=== PATIENT | male | born 1955 | race Caucasian/White ===

== ENCOUNTER → 2019-05-25 11:35 | Outpatient (CLI) | payer OTHER, MEDICARE, SELFPAY ==
--- NOTE | ~2019-05-25 | CT_ITS ---
EXAMINATION: CTA chest PE abdomen pel DATE: 05/25/2019 12:27 INDICATION: Chest and abdominal pain, patient underwent incisional hernia repair with mesh and right- sided transversus abdominous myofascial flap advancement on 04/23/2019 TECHNIQUE: Computed tomography angiography (CTA) of the chest was performed with 100 mL Omnipaque-350 intravenous contrast timed to evaluate the pulmonary arteries. Subsequent postcontrast images of the abdomen and pelvis are obtained. Coronal maximum intensity projection 3D-reconstructions were create d by the technologist. The dose-length product (DLP) was 1388.90 mGy-cm. Automated exposure control a nd iterative reconstruction technique were employed. COMPARISON: 01/15/2019, 06/17/2009. FINDINGS: CTA CHEST: The pulmonary arteries are well-opacified. No pulmonary embolism is identified. There is m ild dependent atelectasis. No focal airspace opacities are identified. Again seen are scattered small pulmonary nodules, consistent with old granulomatous disease. There is no pleural effusion or pneumo thorax. No pathologically enlarged thoracic lymph nodes are identified. The heart size is normal. The re are partially imaged changes of anterior fusion procedure in the lower cervical spine. There is mo derate thoracic spondylosis. There is a small sliding hiatal hernia. ABDOMEN/PELVIS CT: There is a 14.3 x 3.2 x 12.9 cm lenticular fluid collection of the anterior abdomi nal wall. The liver, pancreas, gallbladder, and adrenal glands are normal. A chronic area of low atte nuation in the lower pole of the spleen likely represents a cyst or lymphangioma. Peripelvic cysts ar e noted in the kidneys. Nonobstructing stones of the left kidney measure up to 4 mm. No pathologicall y enlarged abdominal or pelvic lymph nodes are identified. There is no free intraperitoneal gas or ev idence of bowel obstruction. There is severe lumbar spondylosis at L5-S1. IMPRESSION: 1. No pulmonary embolism or acute cardiopulmonary abnormality. 2. Lenticular fluid collection of the anterior abdominal wall, measuring up to 14.3 cm, which could r eflect postoperative hematoma and/or seroma. Reviewed, dictated and finalized at location A. N PROJECTILE IMPRESSION: 1. No pulmonary embolism or acute cardiopulmonary abnormality. 2. Lenticular fluid collection of the anterior abdominal wall, measuring up to 14.3 cm, which could reflect postoperative hematoma and/or seroma.
[2019-05-25 12:06] LABS: Blood Urea Nitrogen 12 mg/dL (8-26); Estimated Glomerular Filt Rate > 60
== END ==
PROVIDERS: PCP Family Medicine; Visit Provider Surgery
DX: R07.9 Chest pain, unspecified (principal); K43.2 Incisional hernia without obstruction or gangrene
CPT/HCPCS: 71275; 74177; Q9967

== ENCOUNTER 2019-11-11 14:07 | Outpatient (CLI) | payer MEDICARE, SELFPAY ==
[2019-11-11 14:38] LABS: Basophils Absolute Auto 0.1 K/mm3 (0.0-0.1); Eosinophils Absolute Auto 0.2 K/mm3 (0-0.3); Eosinophils Percent Auto 3.5 % (0-4.4); Hematocrit 42.5 % (42.0-52.0); Hemoglobin 14.1 g/dL (14.0-18.0); Immature Granulocyte Absolute 0.02 K/mm3 (0.00-0.031); Immature Granulocyte Percent A 0.3 % (0-0.5); Lymphocytes Absolute Auto 1.35 K/mm3 (0.9-3.2); Lymphocytes Percent Auto 21.5 % (18.3-44.2); Mean Corpuscular HGB Conc 33.2 g/dl (32-36); Mean Corpuscular Hemoglobin 30.6 pg (26-34); Mean Corpuscular Volume 92.2 fl (80-100); Mean Platelet Volume 9.3 fl (7.4-10.4); Monocytes Absolute Auto 0.5 K/mm3 (0.1-0.6); Monocytes Percent Auto 8.4 % (2.6-8.5); Neutrophils Absolute Auto 4.1 K/mm3 (1.3-6.7); Neutrophils Percent Auto 65.3 % (45.5-73.1); Platelet Count Result 280 k/mm3 (150-375); Red Blood Count 4.61 M/mm3 (4.6-6.20); Red Cell Distribution Width 16.3 % (11.5-14.5); White Blood Count 6.3 K/mm3 (4.5-10.0)
[2019-11-11 16:44] LABS: Iron 85 ug/dL (49-181)
[2019-11-11 16:50] LABS: Alanine Aminotransferase 28 U/L (4-50); Albumin Level 4.3 g/dL (3.5-5.1); Alkaline Phosphatase 53 U/L (38-126); Anion Gap 12.2 mmol/L (7-16); Aspartate Amino Transferase 27 U/L (17-59); Bilirubin,Total 0.3 mg/dL (0.2-1.3); Blood Urea Nitrogen 22 mg/dL (9-20); Calcium 9.4 mg/dL (8.4-10.2); Carbon Dioxide 25 mmol/L (22-30); Chloride 106 mmol/L (98-107); Estimated Glomerular Filt Rate > 60; Glucose 110 mg/dL (75-110); Potassium 4.2 mmol/L (3.4-5.0); Sodium 139 mmol/L (137-145)
[2019-11-11 16:58] LABS: Percent Iron Saturation 24 % (20-50)
[2019-11-11 18:10] LABS: Folic Acid > 20.0 ng/mL (2.76->20)
== END 2019-11-11 14:08 | disposition home or self-care (01) ==
PROVIDERS: PCP Family Medicine; Visit Provider Internal Medicine Hematology & Oncology
DX: D64.9 Anemia, unspecified (principal)
CPT/HCPCS: 36415; 80053; 82607; 82728; 82746; 83540; 83550; 84238; 84443; 85025

== ENCOUNTER 2020-04-16 01:57 | Outpatient (CLI) | payer MEDICARE, SELFPAY ==
[2020-04-16 20:08] LABS: SARS-CoV-2 RNA PCR Negative
== END 2020-04-16 01:58 | disposition home or self-care (01) ==
LOC: ANHCOVIDDT 01:57
PROVIDERS: PCP Family Medicine; Visit Provider Internal Medicine Gastroenterology
DX: Z01.818 Encounter for other preprocedural examination (principal); Z20.828 Contact with and (suspected) exposure to other viral communicable diseases
CPT/HCPCS: C9803; U0003

== ENCOUNTER 2020-04-19 01:56 | Day surgery (SDC) | payer MEDICARE, SELFPAY ==
[2020-04-04 14:47] VITALS: BMI 27.8
[2020-04-19 11:25] VITALS: BP 142/90; PULSE 83; RESP 18; TEMP 36.3; O2SAT 100; BMI 28.4
[2020-04-19] MEDS: LACTATED RINGERS 1,000 ML 150 ML IV CONT (11:49)
--- NOTE | 2020-04-19 11:54 | WPDANESEPPF ---
Anes - Initial Pre Proc Eval Procedure: Operation Date: 04/19/20 12:45 Proposed Procedures p Screening Colonoscopy - Ganga Serra MD Date/Time: 04/19/20 11:54 Surgeon: Ganga Serra MD Pre Op Diagnosis: Neoplasm Screening Patient Data Age: 64 Gender: M Height: 5 ft 8 in Weight: 84.8 kg Last Vital Signs Temp 97.4 F L 04/19/20 11:25 Pulse 83 04/19/20 11:25 Resp 18 04/19/20 11:25 BP 142/90 H 04/19/20 11:25 Pulse Ox 100 04/19/20 11:25 Allergies Allergy/AdvReac Type Severity Reaction Status Date / Time No Known Allergies Allergy Verified 04/19/20 11:22 Home Medications Medication Instructions Recorded Confirmed Type ascorbic acid (vitamin C) 1,000 mg 1 gm PO DAILY 03/09/19 04/04/20 History tablet magnesium oxide 500 mg capsule 500 mg PO DAILY 03/09/19 04/04/20 History vit B complex 100 combo no.2 100 1 tablet PO DAILY 03/09/19 04/04/20 History mg tablet,extended release green tea leaf extract [Green Tea] 500 mg PO DAILY 04/09/19 04/04/20 History psyllium husk [Fiber (psyllium 0.4 g PO DAILY 04/09/19 04/04/20 History husk)] creatine monohydrate 1.5 gram/15 189 gm PO DAILY ml 09/04/19 04/04/20 History mL oral liquid atorvastatin 20 mg tablet 20 mg PO DAILY #90 tablet 12/30/19 04/04/20 Rx lansoprazole 30 mg capsule,delayed 30 mg PO BID #180 cap 02/10/20 04/04/20 Rx release levothyroxine 137 mcg tablet 137 mcg PO DAILY #90 tablet 02/10/20 04/04/20 Rx tamsulosin 0.4 mg capsule 0.4 mg PO DAILY #90 cap 02/10/20 04/04/20 Rx hydrocodone 7.5 mg-acetaminophen 1 tablet PO Q6H PRN #120 tablet 03/18/20 04/04/20 Rx 325 mg tablet peg 3350-electrolytes 236 240 ml PO Q10M #4000 ml 03/21/20 Rx gram-22.74 gram-6.74 gram-5.86 gram solution pramipexole 0.125 mg tablet 0.375 mg PO TID #810 tablet 03/25/20 04/04/20 Rx calcium carbonate [Calcium 600] 600 mg PO DAILY 04/04/20 04/04/20 History cholecalciferol (vitamin D3) 50 mcg PO DAILY 04/04/20 04/04/20 History [Vitamin D3] ginkgo biloba-Panax ginseng rt 1 cap PO DAILY 04/04/20 04/04/20 History [Ginkoba M-E] omega-3 fatty acids [Fish Oil] 600 mg PO DAILY 04/04/20 04/04/20 History prasterone (dhea) [DHEA] 50 mg PO DAILY 04/04/20 04/04/20 History diltiazem HCl [Cardizem CD] 240 mg PO DAILY 04/19/20 04/04/20 History Patient hx anesthesia problems: none Family hx anesthesia problems: none PMFSH Past Medical History Medical History 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 GERD (gastroesophageal reflux disease) High cholesterol History of blood transfusion HTN (hypertension) Hypogonadism in male Hypothyroidism determined by thyroid function test Incisional hernia without obstruction or gangrene (~07/2018) Lipoma of extremity removed Lipomatosis Osteoarthritis of knee Restless leg syndrome Surgical History Surgical History H/O repair of rotator cuff left H/O toe surgery History of cataract surgery History of hernia surgery repair incisional hernia with mesh, right side transverses abdominis myofascial flap advancement 5cm History of tonsillectomy Family History Family History Father Family history of lung cancer Sibling Family history of lung cancer Social History Social History Smoking packs per day: 4 Smoking cigarettes per day: 80.0 Years smoked: 30 Smoking pack-years: 120.00 Smoking status: Former smoker Tobacco type: cigarettes Second hand tobacco smoke exposure: No Smoking end date: 04/29/94 Alcohol intake: former Substance use: never Substance use type: does not use Living arrangements: with family Gender identity (if verbalized by the patient): M
--- NOTE | 2020-04-19 12:32 | PM.HPGS ---
History of Present Illness History of Present Illness Consent: Risks, benefits, and alternatives have been discussed and questions answered. Patient agrees to proceed with procedure. Chief complaint: Neoplasm Screening Narrative: Wilfrido Rodrigues is a 64 year old male with colon polyps about 5 years ago. Review of Systems Constitutional: Constitutional: Denies headache(s) and Denies weakness Eyes: Eyes: Denies blurry vision ENT: Reports Normal hearing present, Denies headache(s) and Denies neck pain Cardiovascular: Cardiovascular: Denies chest pain and Denies dyspnea Respiratory: Respiratory: Denies dyspnea Gastrointestinal: Gastrointestinal: Reports no additional gastrointestinal complaints Genitourinary: Genitourinary: Denies dysuria Musculoskeletal: Musculoskeletal: Denies neck pain Integumentary/Breasts: Skin/Breast: Denies dry skin Neurologic: Reports Normal hearing present, Denies headache(s) and Denies weakness Psychiatric: Psychiatric: Denies anxiety Endocrine: Endocrine: Denies change in body appearance Hematologic/Lymphatic: Hematologic/Lymphatic: Denies easy bleeding Allergic/Immunologic: Allergic/Immunologic: Denies urticaria PMFSH Past Medical History Medical History 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 GERD (gastroesophageal reflux disease) High cholesterol History of blood transfusion HTN (hypertension) Hypogonadism in male Hypothyroidism determined by thyroid function test Incisional hernia without obstruction or gangrene (~07/2018) Lipoma of extremity removed Lipomatosis Osteoarthritis of knee Restless leg syndrome Surgical History Surgical History H/O repair of rotator cuff left H/O toe surgery History of cataract surgery History of hernia surgery repair incisional hernia with mesh, right side transverses abdominis myofascial flap advancement 5cm History of tonsillectomy Family History Family History Father Family history of lung cancer Sibling Family history of lung cancer Social History Social History Smoking packs per day: 4 Smoking cigarettes per day: 80.0 Years smoked: 30 Smoking pack-years: 120.00 Smoking status: Former smoker Tobacco type: cigarettes Second hand tobacco smoke exposure: No Smoking end date: 04/29/94 Alcohol intake: former Substance use: never Substance use type: does not use Living arrangements: with family Gender identity (if verbalized by the patient): Male Spiritual care concerns: No Agree to blood products: Yes Meds Home Medications and Allergies Home Medications Medication Instructions Recorded Confirmed Type ascorbic acid (vitamin C) 1,000 mg 1 gm PO DAILY 03/09/19 04/04/20 History tablet magnesium oxide 500 mg capsule 500 mg PO DAILY 03/09/19 04/04/20 History vit B complex 100 combo no.2 100 1 tablet PO DAILY 03/09/19 04/04/20 History mg tablet,extended release green tea leaf extract [Green Tea] 500 mg PO DAILY 04/09/19 04/04/20 History psyllium husk [Fiber (psyllium 0.4 g PO DAILY 04/09/19 04/04/20 History husk)] creatine monohydrate 1.5 gram/15 189 gm PO DAILY ml 09/04/19 04/04/20 History mL oral liquid atorvastatin 20 mg tablet 20 mg PO DAILY #90 tablet 12/30/19 04/04/20 Rx lansoprazole 30 mg capsule,delayed 30 mg PO BID #180 cap 02/10/20 04/04/20 Rx release levothyroxine 137 mcg tablet 137 mcg PO DAILY #90 tablet 02/10/20 04/04/20 Rx tamsulosin 0.4 mg capsule 0.4 mg PO DAILY #90 cap 02/10/20 04/04/20 Rx hydrocodone 7.5 mg-acetaminophen 1 tablet PO Q6H PRN #120 tablet 03/18/20 04/04/20 Rx 325 mg tablet peg 3350-electrolytes 236 240 ml PO Q10M #4000 ml 03/21/20 Rx gram-
[2020-04-19 12:55] VITALS: BP 122/70; PULSE 80; RESP 20; O2SAT 94
[2020-04-19 13:05] VITALS: BP 135/75; PULSE 78; RESP 22; O2SAT 98
[2020-04-19 13:15] VITALS: BP 122/80; PULSE 76; RESP 20; O2SAT 98
--- NOTE | 2020-04-19 13:29 | SUR.PHASEII ---
INTO RECOVERY 1255, SPOUSE AT BEDSIDE. PT HAVING MUSCLE SPASMS AND TWITCHES WHICH IS PT'S NORMAL. PT HAS NOT HAD HIS MIRAPEX TODAY. PT SLOW TO AROUSE FROM ANESTHESIA. SPOUSE AT BEDSIDE TO AROUSE PT GENTLY DUE TO PTSD. UPON WAKING, SPOUSE GAVE PT MIRAPEX AND VICODIN. PT MORE AWAKE AND ABLE TO CONTROL SPASMS SOME AFTER MEDS GIVEN AND ABLE TO STAND UP.
== END 2020-04-19 13:45 | disposition home or self-care (01) ==
PROVIDERS: PCP Physician Assistant; Visit Provider Internal Medicine Gastroenterology
PROC: 0DJD8ZZ Inspection of Lower Intestinal Tract, Via Natural or Artificial Opening Endoscopic (ICD-10-PCS; CPT 45378; principal; 2020-04-19 12:45)
DX: Z12.11 Encounter for screening for malignant neoplasm of colon (principal); D12.3 Benign neoplasm of transverse colon; K63.5 Polyp of colon; K57.30 Diverticulosis of large intestine without perforation or abscess without bleeding; K64.8 Other hemorrhoids; N40.1 Benign prostatic hyperplasia with lower urinary tract symptoms; F43.10 Post-traumatic stress disorder, unspecified; K21.9 Gastro-esophageal reflux disease without esophagitis; E78.00 Pure hypercholesterolemia, unspecified; I10 Essential (primary) hypertension; E88.2 Lipomatosis, not elsewhere classified; M17.10 Unilateral primary osteoarthritis, unspecified knee; G25.81 Restless legs syndrome; Z87.891 Personal history of nicotine dependence
CPT/HCPCS: 45385; 88305; C9803; J2704; J7120; U0003

== ENCOUNTER 2020-11-25 10:28 | Outpatient (CLI) | payer MEDICARE, SELFPAY ==
--- NOTE | ~2020-11-25 | CT_ITS ---
EXAMINATION: CT lung screening DATE: 11/25/2020 10:51 INDICATION: Personal history of tobacco dependence, prior smoker with 120 pack year history TECHNIQUE: Computed tomography (CT) of the chest was performed without intravenous contrast. The dose -length product (DLP) was 177.53 mGy-cm. Automated exposure control and iterative reconstruction tech [employer] were employed. COMPARISON: 05/25/2019 FINDINGS: There is mild emphysema. There are stable lung nodules measuring up to 3 mm in the right mi ddle lobe. No new nodules are identified. The lungs are free of acute opacities. There is mild depend ent atelectasis. No pleural effusion or pneumothorax is identified. No pathologically enlarged thorac ic lymph nodes are identified. The heart size is normal. There is moderate thoracic spondylosis. Ther e are partially imaged changes of anterior fusion of the lower cervical spine. IMPRESSION: 1. Lung-RADS category 2: Benign appearance or behavior. Reviewed, dictated and finalized at location B.
== END 2020-11-25 10:29 | disposition home or self-care (01) ==
PROVIDERS: PCP Family Medicine; Visit Provider Family Medicine
DX: Z12.2 Encounter for screening for malignant neoplasm of respiratory organs (principal); Z87.891 Personal history of nicotine dependence
CPT/HCPCS: 71271

== ENCOUNTER 2021-03-26 10:06 | Inpatient (IN) | payer MEDICARE, SELFPAY ==
[2021-03-26] VITALS (8 sets, daily range): BP systolic 140–160; BP diastolic 73–89; PULSE 62–116; RESP 17–44; TEMP 37.2–38.1; O2SAT 94–100; BMI 27.4
--- NOTE | ~2021-03-26 | XR_ITS ---
EXAMINATION: XR chest 1V portable DATE: 04/17/2021 08:55 INDICATION: Respiratory failure. COVID-19 pneumonia. TECHNIQUE: A single frontal view of the chest was obtained. COMPARISON: Chest single view 04/15/2021 FINDINGS: The lateral costophrenic angles are excluded. There are interstitial and airspace opacities throughout the lungs bilaterally. No pleural effusion or pneumothorax. The heart size is normal. The nasogastric tube tip is beyond the inferior margin of the radiograph, but at least to the stomach. T he endotracheal tube tip is 7.2 cm above the ivan. There are changes of anterior fusion procedure i n cervical spine. A right upper extremity peripherally inserted central venous catheter (PICC) is see n with tip in the superior vena cava. There is gas in right neck and right chest wall. IMPRESSION: 1. New gas in right neck and right chest wall. 2. Stable diffuse lung disease, consistent with COVID-19 pneumonia versus acute respiratory distress syndrome (ARDS). Reviewed, dictated and finalized at location A. CTIVE SERGEANT
--- NOTE | ~2021-03-26 | CT_ITS ---
EXAMINATION: CTA chest PE protocol EXAM DATE: 03/26/2021 15:43 INDICATION: Hypoxia, tachycardia, COVID patient under investigation. TECHNIQUE: Spiral CTA of the chest (pulmonary arteries) was performed with 100 cc Omnipaque 350 intr avenous contrast injection. Images were acquired during the pulmonary arterial phase. Coronal maxi mum intensity projection 3D-reconstructions were created by the technologist on dedicated workstation . Axial, coronal and sagittal reformatted images were reviewed. The dose-length product (DLP) for t his examination was 494.15 mGy-cm. The exposure was tailored according to patient size (auto mA exp osure control), and iterative reconstruction (ASIR) was used as additional dose reduction technique. Comparison is made to prior examination from 11/25/2020. FINDINGS: Pulmonary arteries are well opacified and without intraluminal filling defects. No thora cic aortic dissection. Development of moderate amount of left lung, mild right lung peripheral and d ependent predominant groundglass airspace disease, appearance is consistent with COVID pneumonia acut e stage. There are no pleural or pericardial effusions. Tracheobronchial tree is patent. There i s no mediastinal, hilar or axillary lymphadenopathy. There is no pneumothorax. Heart normal in si ze. There is mild coronary arterial calcification, arterial sclerosis. Probable Niesen fundoplicat ion. There is thoracic spondylosis without osteoblastic or osteolytic lesions identified. IMPRESSION: 1. Moderate left, mild right pneumonia, probably COVID 19. 2. No pulmonary emboli suspected. Reviewed, dictated and finalized at location A. DATION TECHNICIAN
--- NOTE | ~2021-03-26 | XR_ITS ---
EXAMINATION: XR chest 1V portable DATE: 04/15/2021 07:50 INDICATION: Acute respiratory failure. COVID-19 pneumonia. TECHNIQUE: A single frontal view of the chest was obtained. COMPARISON: Chest single view 04/14/2021 FINDINGS: The patient is rotated to his right. There are interstitial and airspace opacities in all l josephine zones bilaterally. No pleural effusion or pneumothorax. The heart size is normal. The endotrachea l tube tip is 6.0 cm above the ivan. The nasogastric tube tip is in the stomach. A right upper extr emity peripherally inserted central venous catheter (PICC) is seen with tip at the superior cavoatria l junction. There are changes of anterior fusion procedure in cervical spine. IMPRESSION: 1. Stable diffuse lung disease, consistent with COVID-19 pneumonia versus acute respiratory distress syndrome (ARDS). Reviewed, dictated and finalized at location A. LE CORNER CUTTER
--- NOTE | ~2021-03-26 | XR_ITS ---
EXAMINATION: XR chest 1V portable DATE: 04/18/2021 09:44 INDICATION: Respiratory failure. COVID-19 pneumonia. TECHNIQUE: A single frontal view of the chest was obtained. COMPARISON: Chest single view 04/17/2021 FINDINGS: There are airspace and interstitial opacities involving all lung zones, worst in right lowe r lung zone and left mid and lower lung zones. No pleural effusion. There is a possible small right p neumothorax. There is gas in right lateral chest wall. The heart size is normal. The endotracheal tub e tip is 5.3 cm above the ivan. The nasogastric tube tip is in the stomach. There are changes of an terior fusion procedure in cervical spine. A right upper extremity peripherally inserted central veno us catheter (PICC) is seen with tip in the superior vena cava. IMPRESSION: 1. Possible small right pneumothorax. Gas again seen in right chest wall. 2. Diffuse lung disease, likely stable given differences in technique, consistent with COVID-19 pneum onia versus acute respiratory distress syndrome (ARDS). Reviewed, dictated and finalized at location A. WARE MANAGER IMPRESSION: 1. Possible small right pneumothorax. Gas again seen in right chest wall. 2. Diffuse lung disease, likely stable given differences in technique, consiste nt with COVID-19 pneumonia versus acute respiratory distress syndrome (ARDS).
--- NOTE | ~2021-03-26 | XR_ITS ---
EXAMINATION: XR abdomen obstructive series EXAM DATE: 04/15/2021 14:30 INDICATION: Rule out ileus/obstruction. TECHNIQUE: Frontal upright projection of the upper abdomen, frontal projection of the lower abdomen f or interpretation. Comparison is made to prior examination from 04/10/2021. FINDINGS: Feeding tube tip and side-port project over gastric bubble. Tips of right IJ line and endo tracheal tubes. No evidence of free intraperitoneal gas. Expected amount of colonic stool and gas wi thout small bowel dilation (resolution of previously seen air-filled small bowel). No evidence of mohamud e intraperitoneal gas. Diffuse pneumonia. IMPRESSION: 1. No evidence of ileus, obstruction or free air. 2. Feeding tube in position. Reviewed, dictated and finalized at location A. CONSULTANT
--- NOTE | ~2021-03-26 | XR_ITS ---
EXAMINATION: XR chest 1V portable EXAM DATE: 04/11/2021 06:32 INDICATION: Acute respiratory failure, COVID pneumonia TECHNIQUE: Portable AP frontal chest x-ray was obtained. Comparison is made to prior examination from 04/10/2021. FINDINGS: Endotracheal tube tip is 5 centimeters above the ivan. Feeding tube is in position. Ther e is a right-sided PICC line also in position. Diffuse bilateral airspace disease with relative sparing of the right upper lobe, consistent with COV ID pneumonia. Possible small amount of pneumomediastinum. There are no sizable pleural effusions. There is no pneumothorax suspected. Cardiomediastinal silhouette is normal. The bones and soft tis sues are unremarkable. Cervical fusion hardware. Airspace disease appears not significantly changed. Possible development of pneumomediastinum. IMPRESSION: 1. Line and tube(s) in position. 2. Diffuse COVID pneumonia unchanged. 3. Possible development of pneumomediastinum. Reviewed, dictated and finalized at location A. SION DIRECTOR
--- NOTE | ~2021-03-26 | XR_ITS ---
EXAMINATION: XR chest 1V portable DATE: 04/12/2021 08:38 INDICATION: Acute respiratory failure. COVID pneumonia. TECHNIQUE: frontal view of the chest was obtained. COMPARISON: Chest radiograph dated 04/11/2021 FINDINGS: Endotracheal tube tip 5.4 cm above the ivan. Nasogastric tube tip in the body of the stomach with p roximal side-port near the level of the gastroesophageal junction. Right upper extremity peripherally inserted central venous catheter (PICC) tip at the superior vena cava. No significant change in diffuse bilateral airspace opacities greatest in the left mid to lower and r ight lower lung zones. No pleural effusion or pneumothorax. Previously seen small amount of pneumomed iastinum is not appreciated on the current study although there does appear to be some residual soft tissue gas at the left supraclavicular region. Heart size is normal. Visualized bones and soft tissue s are unremarkable. IMPRESSION: 1. Lines and tubes in expected position. Would consider advancement of the nasogastric tube by 3-[address] proximal sideport below the level of the gastroesophageal junction. 2. No significant change in diffuse bilateral lung disease consistent with COVID pneumonia. 3. Small amount of soft tissue gas at the left base of the neck likely related to previously noted pn eumomediastinum which is not clearly appreciated in the current study. Reviewed, dictated and finalized at location A. SETTER IMPRESSION: 1. Lines and tubes in expected position. Would consider advancement of the naso gastric tube by 3-[address] proximal sideport below the level of the gastro esophageal junction. 2. No significant change in diffuse bilateral lung disease consistent with COVI D pneumonia. 3. Small amount of soft tissue gas at the left base of the neck likely related to previously noted pneumomediastinum which is not clearly appreciated in the syeda study.
--- NOTE | ~2021-03-26 | XR_ITS ---
XR chest 1V portable DATE: 04/20/2021 09:31 INDICATION: Respiratory failure, Covid pneumonia TECHNIQUE: Portable AP chest on 04/20/2021 0914 hours COMPARISON: 04/19/2019 portable AP chest at 1006 hours FINDINGS: There are persistent extensive patchy consolidating bilateral pulmonary infiltrates, with l ittle interval change since the day before. No pleural effusion. No pneumothorax is evident; there is mild but diminished right chest wall subcutaneous emphysema. ET tube tip in satisfactory position 5 cm above ivan. NG tube in proximal stomach. Right upper stomach the catheter tip is in the caudal aspect of the superior vena cava. Normal heart size. Aortic arch calcification. No pleural effusion. No pulmonary vascular congestion. Diffuse osteopenia. Degenerative spurring of the thoracic spine. IMPRESSION: Diminished right chest wall subcutaneous emphysema; no apparent pneumothorax Persistent extensive patchy bilateral consolidating pulmonary infiltrates Reviewed, dictated and finalized at location A. NING COORDINATOR IMPRESSION: Diminished right chest wall subcutaneous emphysema; no apparent pne umothorax Persistent extensive patchy bilateral consolidating pulmonary infiltrates
--- NOTE | ~2021-03-26 | XR_ITS ---
EXAMINATION: XR chest 1V portable DATE: 04/14/2021 07:55 INDICATION: Acute respiratory failure. COVID-19 pneumonia. TECHNIQUE: A single frontal view of the chest was obtained. COMPARISON: Chest single view 04/13/2021 FINDINGS: There are airspace and interstitial opacities throughout the lungs bilaterally, left worse than right. No pleural effusion or pneumothorax. The heart size is normal. The endotracheal tube tip is 5.3 cm above the ivan. There are changes of anterior fusion procedure in cervical spine. A right upper extremity peripherally inserted central venous catheter (PICC) is seen with tip at the superio r cavoatrial junction. The nasogastric tube tip is in the stomach. IMPRESSION: 1. Stable diffuse lung disease, consistent with COVID-19 pneumonia versus acute respiratory distress syndrome (ARDS). Reviewed, dictated and finalized at location A. ERCIAL LOAN SPECIALIST
--- NOTE | ~2021-03-26 | XR_ITS ---
EXAMINATION: XR chest 1V portable DATE: 04/19/2021 10:15 INDICATION: Respiratory failure. COVID-19 pneumonia. TECHNIQUE: A single frontal view of the chest was obtained. COMPARISON: Chest single view 04/18/2021 FINDINGS: There are airspace and interstitial opacities in all lung zones bilaterally. No pleural eff usion or pneumothorax. The heart size is normal. The endotracheal tube tip is 5.0 cm above the ivan . The nasogastric tube tip is in the stomach. There are changes of anterior fusion procedure in cervi dara spine. A right upper extremity peripherally inserted central venous catheter (PICC) is seen with tip again seen is gas in right chest wall and right neck. IMPRESSION: 1. Stable diffuse lung disease, consistent with COVID-19 pneumonia versus acute respiratory distress syndrome (ARDS). 2. Soft tissue gas again seen in right chest wall and right neck. Reviewed, dictated and finalized at location A. CE ADMINISTRATOR
--- NOTE | ~2021-03-26 | XR_ITS ---
XR chest 1V portable 04/04/2021 09:15 Indication: Dyspnea. Covid precaution. Procedure: AP portable chest Comparison: Comparison to multiple prior studies sequentially, with oldest reviewed study dated 04/24. Findings: Heart size upper normal. There is persistent bilateral airspace disease, left greater than right. No pleural effusion or pneumothorax. No acute osseous abnormality. Impression: 1: Stable bilateral airspace disease, consistent with pneumonia. Reviewed, dictated and finalized at location A. RD TESTER Impression: 1: Stable bilateral airspace disease, consistent with pneumonia.
--- NOTE | ~2021-03-26 | XR_ITS ---
EXAMINATION: XR chest ET placement, XR abdomen NG/feed tube insert DATE: 04/10/2021 11:39 INDICATION: Endotracheal tube placement. Orogastric tube placement TECHNIQUE: 1. Portable AP supine view of the chest was obtained. 2. Portable AP supine view of the abdomen was obtained. COMPARISON: Chest radiograph dated 04/10/2021 at 5:29 AM FINDINGS: Chest: Interval placement of an endotracheal tube with distal tip 4.7 cm above the ivan. Persistent airspa ce opacities throughout the left lung relatively sparing the apex and in the right mid and lower lung zones with a few air bronchograms consistent with pneumonia. No pleural effusion or pneumothorax. Th e cardiomediastinal silhouette is normal. Surgical clips at the left side of the neck. Incompletely v isualized plate and screw fixation for mid to lower cervical anterior spinal fusion. Abdomen: Nasogastric tube tip in proximal side port in the body of the stomach. Multiple gas-filled but not fr ankly dilated loops of large and small bowel throughout the visualized abdomen. IMPRESSION: 1. Endotracheal tube and nasogastric tube in expected positions. Could consider advancement of the en dotracheal tube by 2 cm. 2. Opacities in the bilateral mid and lower lung zones consistent with pneumonia. 3. Nonspecific bowel gas pattern with no dilated loops of bowel to suggest obstruction. Reviewed, dictated and finalized at location H. THERAPIST IMPRESSION: 1. Endotracheal tube and nasogastric tube in expected positions. Could consider advancement of the endotracheal tube by 2 cm. 2. Opacities in the bilateral mid and lower lung zones consistent with pneumoni a. 3. Nonspecific bowel gas pattern with no dilated loops of bowel to suggest obst ruction.
--- NOTE | ~2021-03-26 | XR_ITS ---
EXAMINATION: XR chest 1V portable DATE: 04/02/2021 11:02 INDICATION: Dyspnea. COVID-19 positive 03/26/2021. TECHNIQUE: A single frontal view of the chest was obtained. COMPARISON: Chest single view 03/29/2021, chest CT 03/26/2021 FINDINGS: There are airspace opacities in right lower lung zone and left mid and lower lung zones. No pleural effusion or pneumothorax. The heart size is normal. There are changes of anterior fusion pro cedure in cervical spine. IMPRESSION: 1. Stable airspace opacities in right lower lung zone and left mid and lower lung zones, consistent w ith COVID-19 pneumonia. Reviewed, dictated and finalized at location A. CING MILL OPERATOR IMPRESSION: 1. Stable airspace opacities in right lower lung zone and left mid and lower miguelina ng zones, consistent with COVID-19 pneumonia.
--- NOTE | ~2021-03-26 | CT_ITS ---
EXAMINATION: CT brain wo con DATE: 03/29/2021 09:00 INDICATION: Confusion. Altered mental status. TECHNIQUE: Computed tomography (CT) of the head was performed without intravenous contrast. The mA wa s adjusted according to patient size. Iterative reconstruction technique was employed. The dose-lengt h product was 605.33 mGy-cm. COMPARISON: None FINDINGS: There is no intracranial hemorrhage, acute infarction, or abnormal intracranial mass lesion . There are scattered areas of low attenuation in the cerebral white matter, which is within normal l imits for the patient's age. The ventricles are normal in size. There is mucosal thickening in the pa ranasal sinuses. The mastoid air cells are normal. There are likely changes of ocular lens replacemen t surgeries. IMPRESSION: 1. Normal aging brain. Reviewed, dictated and finalized at location A. CAR REPAIR CARMAN IMPRESSION: 1. Normal aging brain.
--- NOTE | ~2021-03-26 | XR_ITS ---
XR chest 1V portable DATE: 04/08/2021 06:40 INDICATION: Dyspnea. Covid infection. TECHNIQUE: Portable AP chest on 04/08/2021 at 0615 hours COMPARISON: 04/04/2021 portable AP chest FINDINGS: There is subcutaneous emphysema of the right chest and neck and pneumomediastinum. Small ri ght apical pneumothorax is suspected. No left pneumothorax is evident. Patchy bilateral pulmonary infiltrates involving the right lower and left mid and lower lung zones, s uggesting bilateral pneumonia. No pleural effusion. Diffuse osteopenia. Postoperative change from surgical fusion of the cervical spine. Diffuse osteopenia. IMPRESSION: Mild right apical pneumothorax, pneumomediastinum, prominent right chest and neck subcuta neous emphysema Patchy left mid and bilateral lower lung infiltrates Reviewed, dictated and finalized at location A. LE CONTROL CHENILLER IMPRESSION: Mild right apical pneumothorax, pneumomediastinum, prominent right chest and neck subcutaneous emphysema Patchy left mid and bilateral lower lung infiltrates
--- NOTE | ~2021-03-26 | US_ITS ---
EXAMINATION: US renal BI DATE: 04/14/2021 09:58 INDICATION: Acute kidney injury. TECHNIQUE: Multiple ultrasound grayscale images of the kidneys were obtained. COMPARISON: Ultrasound 04/25/2019, CT 05/25/2019 FINDINGS: The right kidney measures 10.7 x 4.2 x 6.4 cm. The left kidney measures 11.4 x 6.1 x 6.8 cm. The kidn eys demonstrate normal parenchymal echogenicity. There are peripelvic cysts in the kidneys measuring 1.3 cm on the right. There is no hydronephrosis. The bladder is decompressed by a Guido catheter. IMPRESSION: 1. Normal kidney sizes. No hydronephrosis. Reviewed, dictated and finalized at location A. TENDER
--- NOTE | ~2021-03-26 | XR_ITS ---
XR chest 1V portable DATE: 04/09/2021 06:27 INDICATION: Pneumothorax. Covid infection. TECHNIQUE: Portable AP chest on 04/09/2021 at 0600 hours COMPARISON: 04/08/2021 portable AP chest at 0615 hours FINDINGS: There is increased subcutaneous emphysema of the right chest wall and upper abdominal wall and left upper chest and bilateral neck. Pneumomediastinum is again noted. No apparent pneumothorax. Patchy bilateral pulmonary fractures involving the mid and lower lung zones, left greater than right, increased since 04/08/2021. Status post anterior cervical spine surgical fusion. IMPRESSION: Increased subcutaneous emphysema of the chest wall and neck Pneumomediastinum No definite pneumothorax Patchy bilateral pulmonary infiltrates, increased since 04/08/2021 Reviewed, dictated and finalized at location A. ALS REPRESENTATIVE
--- NOTE | ~2021-03-26 | XR_ITS ---
EXAMINATION: XR chest 1V portable DATE: 04/18/2021 14:48 INDICATION: Decreased saturation. TECHNIQUE: A single frontal view of the chest was obtained. COMPARISON: Chest single view at 9:35 AM FINDINGS: There are interstitial airspace opacities in all lung zones bilaterally. No pleural effusio n or pneumothorax. The heart size is normal. There are changes of anterior fusion procedure in cervic al spine. The endotracheal tube tip is 2.4 cm above the ivan. The nasogastric tube tip is in the st omach. A right upper extremity peripherally inserted central venous catheter (PICC) is seen with tip at superior cavoatrial junction. There is gas in right chest wall and right neck. IMPRESSION: 1. Diffuse lung disease with mild worsening, consistent with COVID-19 pneumonia versus acute respirat ory distress syndrome (ARDS). 2. Soft tissue gas again seen in right chest wall and right neck. Reviewed, dictated and finalized at location A. CONDITIONING ENGINEER IMPRESSION: 1. Diffuse lung disease with mild worsening, consistent with COVID-19 pneumonia versus acute respiratory distress syndrome (ARDS). 2. Soft tissue gas again seen in right chest wall and right neck.
--- NOTE | ~2021-03-26 | XR_ITS ---
EXAMINATION: XR chest 1V portable INDICATION: Shortness of breath, TECHNIQUE: Portable AP chest at 1108 hours COMPARISON: 04/24/2019 FINDINGS: There are patchy opacities of the lung bases and left midlung zone. No pleural effusion or pneumothorax is identified. The cardiomediastinal silhouette is normal. The cervical spinal fusion ar e noted. IMPRESSION: 1. Airspace opacities of the lung bases and left midlung zone, likely pneumonia. Reviewed, dictated and finalized at location A. ULATION LIBRARIAN IMPRESSION: 1. Airspace opacities of the lung bases and left midlung zone, likely pneumonia .
--- NOTE | ~2021-03-26 | XR_ITS ---
EXAMINATION: XR chest 1V portable EXAM DATE: 04/10/2021 05:57 INDICATION: COVID pneumonia. TECHNIQUE: Portable AP frontal chest x-ray was obtained. Comparison is made to prior examination from 04/09/2021. FINDINGS: Left greater than right acute ill-defined airspace disease consistent with COVID pneumonia. There is been improvement in the previously seen right axillary gas and pneumomediastinum. The cardi omediastinal silhouette is prominent but magnified on this AP technique. There is no pneumothorax gertrude pected. There are no pleural effusions. Cervical fusion hardware. IMPRESSION: 1. Diffuse, left greater than right COVID pneumonia unchanged. 2. Improving pneumomediastinum, axillary gas. Reviewed, dictated and finalized at location A. MANAGER
--- NOTE | ~2021-03-26 | XR_ITS ---
EXAMINATION: XR chest 1V portable INDICATION: COVID 19 pneumonia TECHNIQUE: Portable AP chest at 0640 hours COMPARISON: 03/26/2021 FINDINGS: A tracheostomy is noted. There are patchy opacities of the lung bases and left midlung zone without significant change. No pleural effusion or pneumothorax is identified. The cardiomediastinal silhouette is normal. Changes of cervical spinal fusion are noted. IMPRESSION: 1. Stable opacities of the lung bases and left midlung zone, likely pneumonia. Reviewed, dictated and finalized at location A. FLOW REGULATOR
--- NOTE | ~2021-03-26 | XR_ITS ---
EXAMINATION: XR chest 1V portable EXAM DATE: 04/13/2021 08:01 INDICATION: Acute respiratory failure, COVID pneumonia. TECHNIQUE: Portable AP frontal chest x-ray was obtained. Comparison is made to prior examination from 04/12/2021. FINDINGS: Endotracheal tube tip is 5-6 centimeters above the ivan. Feeding tube is in position. Th ere is a right-sided PICC line in position. Diffuse left greater than right bilateral airspace disease with relative sparing of the right upper l obe, consistent with COVID pneumonia. There are no sizable pleural effusions. There is no pneumot horax suspected. Cardiomediastinal silhouette is normal. The bones and soft tissues are unremarkab le. Cervical fusion hardware. Airspace disease appears not significantly changed. IMPRESSION: 1. Line and tube(s) in position. 2. Diffuse COVID pneumonia unchanged. Reviewed, dictated and finalized at location A. CCO DRYING MACHINE OPERATOR
--- NOTE | 2021-03-26 10:59 | ECG_ITS ---
Measurements Intervals [place] Rate: 103 P: 33 LA: 149 QRS: 16 QRSD: 89 T: 35 QT: 324 QTc: 426 Interpretive Statements SINUS TACHYCARDIA MINIMAL Q WAVES- ANTEROLAT/HIGH LAT LEADS NONSPECIFIC ST & T-WAVE ABNORMALITY- INF/LAT LEADS BASELINE ARTIFACT- I, II, III, AVR, AVL, AVF BORDERLINE ECG Electronically Signed On 03-26-2021 12:25:18 COAL DELIVERER by Franco Gu D.O.
[2021-03-26 11:48] LABS: Basophils Percent Auto 0.2 % (0.2-1.2); Hematocrit 45.2 % (42.0-52.0); Hemoglobin 15.2 g/dL (14.0-18.0); Immature Granulocyte Absolute 0.02 K/mm3 (0.00-0.031); Immature Granulocyte Percent A 0.4 % (0-0.5); Lymphocytes Absolute Auto 0.56 K/mm3 (0.9-3.2); Lymphocytes Percent Auto 11.7 % (18.3-44.2); Mean Corpuscular HGB Conc 33.6 g/dl (32-36); Mean Corpuscular Hemoglobin 31.5 pg (26-34); Mean Corpuscular Volume 93.8 fl (80-100); Monocytes Absolute Auto 0.3 K/mm3 (0.1-0.6); Monocytes Percent Auto 7.1 % (2.6-8.5); Neutrophils Absolute Auto 3.8 K/mm3 (1.3-6.7); Neutrophils Percent Auto 80.6 % (45.5-73.1); Platelet Count Result 181 k/mm3 (150-375); Red Blood Count 4.82 M/mm3 (4.6-6.20); Red Cell Distribution Width 14.6 % (11.5-14.5); White Blood Count 4.8 K/mm3 (4.5-10.0)
[2021-03-26 11:58] LABS: Alanine Aminotransferase 35 U/L (4-50); Albumin Level 4.5 g/dL (3.5-5.1); Alkaline Phosphatase 199 U/L (38-126); Anion Gap 9 mmol/L (8-16); Aspartate Amino Transferase 41 U/L (17-59); Bilirubin,Total 0.8 mg/dL (0.2-1.3); Blood Urea Nitrogen 33 mg/dL (9-20); Calcium 9.1 mg/dL (8.4-10.2); Carbon Dioxide 24 mmol/L (22-30); Chloride 101 mmol/L (98-107); Estimated Glomerular Filt Rate 51; Glucose 103 mg/dL (65-110); Lactic Acid Reflex 0.8 mmol/L (0.7-2.1); Sodium 134 mmol/L (137-145)
[2021-03-26 12:01] LABS: Add Urine Microscopic? YES; Appearance Urine Clear (Clear); Bilirubin Urine Negative (Negative); Blood Urine Negative (Negative); Color Urine Amber (Yellow); Glucose Urine UA Negative (Negative); Ketones Urine Trace mg/dL (Negative); Leukocyte Esterase Ur Negative LEU/UL (Negative); Mucus Urine Rare /lpf; Nitrate Urine Positive (Negative); Protein Urine 2+ mg/dL (Negative); Specific Grav Ur 1.027 (1.001-1.035)
[2021-03-26 12:13] LABS: Troponin I < 0.012 ng/mL (0.000-0.034)
[2021-03-26] MEDS: LORazepam INJ (*CRX) 2 MG/ML VIAL 0.5 MG IV PUSH ×2 (12:31→15:08)
--- NOTE | 2021-03-26 13:48 | ED.SOB ---
HPI - SOB/Dyspnea General Chief Complaint: Shortness of Breath/Dyspnea Stated Complaint: sob/covid exposure Time Seen by Provider: 03/26/21 12:03 History of Present Illness HPI Narrative: Patient is a 65-year-old male who presents ER with shortness of breath. Worsening over the last week. Reports exposure to Covid by his . He has not yet been tested. He endorses fevers and chills as well as fatigue. He has frequent cough and shortness of breath. Found to be hypoxic upon arrival. Related Data Home Medications Medication Instructions Recorded Confirmed ascorbic acid (vitamin C) 1,000 mg 1 gm PO DAILY 03/09/19 03/26/21 tablet magnesium oxide 500 mg capsule 500 mg PO DAILY 03/09/19 03/26/21 vit B complex 100 combo no.2 100 1 tablet PO DAILY 03/09/19 03/26/21 mg tablet,extended release green tea leaf extract [Green Tea] 500 mg PO DAILY 04/09/19 03/26/21 psyllium husk [Fiber (psyllium 0.4 g PO DAILY 04/09/19 03/26/21 husk)] creatine monohydrate 1.5 gram/15 189 gm PO DAILY ml 09/04/19 03/26/21 mL oral liquid calcium carbonate [Calcium 600] 600 mg PO DAILY 04/04/20 03/26/21 cholecalciferol (vitamin D3) 50 mcg PO DAILY 04/04/20 03/26/21 [Vitamin D3] ginkgo biloba-Panax ginseng rt 1 cap PO DAILY 04/04/20 03/26/21 [Ginkoba M-E] omega-3 fatty acids [Fish Oil] 600 mg PO DAILY 04/04/20 03/26/21 prasterone (dhea) [DHEA] 50 mg PO DAILY 04/04/20 03/26/21 Allergies Allergy/AdvReac Type Severity Reaction Status Date / Time No Known Allergies Allergy Verified 03/26/21 16:40 Review of Systems Review of Systems: All systems reviewed & are unremarkable except as noted in HPI and below Constitutional: Constitutional: Reports chills, Reports fatigue and Reports fever(s) ENT: Reports nasal congestion and Denies sore throat Cardiovascular: Cardiovascular: Denies chest pain, Denies rapid heart rate and Denies radiating jaw, neck or arm pain Respiratory: Respiratory: Reports cough, Reports dyspnea and Denies wheezing Gastrointestinal: Gastrointestinal: Denies abdominal pain, Denies diarrhea, Denies nausea and Denies vomiting Genitourinary: Genitourinary: Denies dysuria and Denies urinary frequency [facility] Past Medical History Medical History (Updated 03/26/21 @ 14:19 by Noris Edge PA-C) Adenomatous colon polyp Bilateral knee pain 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 GERD (gastroesophageal reflux disease) High cholesterol History of blood transfusion HTN (hypertension) Hypogonadism in male Hypothyroidism Hypothyroidism determined by thyroid function test Incisional hernia without obstruction or gangrene (~07/2018) Lipoma of extremity removed Lipomatosis Opioid use, unspecified, uncomplicated Osteoarthritis of knee Restless leg syndrome Surgical History Surgical History H/O repair of rotator cuff left H/O toe surgery H/O uvulectomy History of cataract surgery History of hernia surgery repair incisional hernia with mesh, right side transverses abdominis myofascial flap advancement 5cm History of tonsillectomy S/P cervical spinal fusion Family History Family History Father Family history of lung cancer Sibling Family history of lung cancer Social History Social History (Updated 03/26/21 @ 15:29 by Noris Edge PA-C) Social History: patient does not drink and no longer smokes. He said he quit smoking in 2008. He said before 2008 he would smoked 10 packs of cigarettes a day. I asked him if he was sure it was 10 packs and he was positive. 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 He would like to be a full code. He would like his surrogate decision maker to be his Candy Smoking packs per day: 4 Smoking cigarettes per day: 80.0 Years smoked: 30 Smoking pack-years: 120.[address]
--- NOTE | 2021-03-26 14:11 | PM.IMHP ---
H&P: HPI History of Present Illness Date/Time: 03/26/21 14:11 Chief Complaint: SOB Narrative: Pt is a 65 y/o male with a PMH of HTN, chronic pain, BPH, and hypothyroidism who is fully vaccinated with an mRNA vaccine x 2 who presented emergency room on 03/26 for shortness of breath. Pt states his is currently + for COVID after being around her grandkids. He started having similar symptoms on 03/20. He states he has a continuos dry cough and feels SOB with activity. He has noticed he has been having fevers and decreased appetite. He denies CP, nausea, vomiting, dysuria, constipation, diarrhea, new pain,or leg swelling. He has no hx of blood clots. He feels better with the oxygen but continues to have a cough. 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 GERD (gastroesophageal reflux disease) High cholesterol History of blood transfusion HTN (hypertension) Hypogonadism in male Hypothyroidism Hypothyroidism determined by thyroid function test Incisional hernia without obstruction or gangrene (~07/2018) Lipoma of extremity removed Lipomatosis Opioid use, unspecified, uncomplicated Osteoarthritis of knee Restless leg syndrome Surgical History Surgical History H/O repair of rotator cuff left H/O toe surgery H/O uvulectomy History of cataract surgery History of hernia surgery repair incisional hernia with mesh, right side transverses abdominis myofascial flap advancement 5cm History of tonsillectomy S/P cervical spinal fusion Family History Family History Father Family history of lung cancer Sibling Family history of lung cancer Social History Social History (Updated 03/26/21 @ 15:29 by Noris Edge PA-C) Social History: patient does not drink and no longer smokes. He said he quit smoking in 2008. He said before 2008 he would smoked 10 packs of cigarettes a day. I asked him if he was sure it was 10 packs and he was positive. 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 He would like to be a full code. He would like his surrogate decision maker to be his Candy Smoking packs per day: 4 Smoking cigarettes per day: 80.0 Years smoked: 30 Smoking pack-years: 120.00 Smoking status: Former smoker Tobacco type: cigarettes Second hand tobacco smoke exposure: No Smoking end date: 04/29/94 Alcohol intake: former Substance use: never Substance use type: does not use Gender identity (if verbalized by the patient): Male Spiritual care concerns: No Agree to blood products: Yes Meds Home Medications and Allergies Home Medications Medication Instructions Recorded Confirmed Type ascorbic acid (vitamin C) 1,000 mg 1 gm PO DAILY 03/09/19 02/15/21 History tablet magnesium oxide 500 mg capsule 500 mg PO DAILY 03/09/19 02/15/21 History vit B complex 100 combo no.2 100 1 tablet PO DAILY 03/09/19 02/15/21 History mg tablet,extended release green tea leaf extract [Green Tea] 500 mg PO DAILY 04/09/19 02/15/21 History psyllium husk [Fiber (psyllium 0.4 g PO DAILY 04/09/19 02/15/21 History husk)] creatine monohydrate 1.5 gram/15 189 gm PO DAILY ml 09/04/19 02/15/21 History mL oral liquid peg 3350-electrolytes 236 240 ml PO Q10M #4000 ml 03/21/20 02/15/21 Rx gram-22.74 gram-6.74 gram-5.86 gram solution pramipexole 0.125 mg tablet 0.375 mg PO TID #810 tablet 03/25/20 02/15/21 Rx calcium carbonate [Calcium 600] 600 mg PO DAILY 04/04/20 02/15/21 History cholecalciferol (vitamin D3) 50 mcg PO DAILY 04/04/20 02/15/21 History [Vitamin D3]
[2021-03-26] MEDS: DEXAMETHASONE SOD PHOS INJ 4 MG/ML VIAL 6 MG IV PUSH (15:07)
[2021-03-26 15:14] LABS: Alveolar/Arterial O2 Gradient 75.7 mmHg; Base Excess ABG -0.4 mEq/l (+/-2.0); Carboxyhemoglobin 0.5 % THb (0-2.0); Fractional Inspired Oxygen 28 %; HCO3 ABG 23.2 mEq/l (22.0-26.0); Methemoglobin ABG 0.2 %THb (0-1.5); Oxygen Saturation ABG 96.5 % (95.0-100.0); Oxyhemoglobin 95.1 % THb (90.0-100.0); PCO2 ABG 35.4 mmHg (35.0-45.0); PO2 ABG 82.2 mmHg (80.0-100.0); PO2 FiO2 Ratio Arterial Blood 2.94 %; Reduced Hemoglobin 4.2 %THb (0-5.0); Total Hemoglobin 15.7 g/dL (12.0-18.0); pH ABG 7.435 (7.350-7.450)
[2021-03-26 15:15] LABS: Device NASAL CANNULA; Modified Allen's Test Pass; Site Drawn LEFT RADIAL
--- NOTE | 2021-03-26 16:34 | PC.NURSE ---
This patient, Wilfrido Rodrigues, was admitted to [address] [facility] Surg Room 326-01. Patient/family oriented to hospital policies and general routines including ID bracelet, bed and alarms, visiting hours, pain management, procedures, bathroom and other care routines, personal items, smoking policy, room service/diet, and visiting hours. Information on how to activate the Rapid Response Team has been discussed. Patient/Family are encouraged to report perceived risks to care and to ask questions if they do not understand what they are told or what they should do.
[2021-03-26] MEDS: ENOXAPARIN 40 MG/0.4 ML SYRINGE SUB-Q (21:59)
[2021-03-26] MEDS: ACETAMINOPHEN 325 MG TABLET 650 MG PO (21:59)
[2021-03-27] VITALS (7 sets, daily range): BP systolic 127–155; BP diastolic 66–76; PULSE 62–80; RESP 16–20; TEMP 36.1–36.7; O2SAT 92–96
[2021-03-27] MEDS: LEVOTHYROXINE SODIUM 25 MCG TABLET PO (05:28)
[2021-03-27] MEDS: LEVOTHYROXINE SODIUM 112 MCG TABLET PO (05:28)
[2021-03-27] MEDS: LEVALBUTEROL HFA (*SP) 15 GM INHALER 2 PUFF INHALATION ×2 (06:38→16:18)
[2021-03-27] MEDS: ASCORBIC ACID 500 MG TABLET 1000 MG PO (08:19)
[2021-03-27] MEDS: CHOLECALCIFEROL 1,000 UNITS TABLET 2000 UNITS PO (08:19)
[2021-03-27] MEDS: CALCIUM CARBONATE (OSCAL) 500 MG TABLET PO (08:19)
[2021-03-27] MEDS: ATORVASTATIN 20 MG TABLET BY MOUTH (08:19)
[2021-03-27] MEDS: DEXAMETHASONE SOD PHOS INJ 4 MG/ML VIAL 6 MG IV PUSH (08:20)
[2021-03-27] MEDS: PRAMIPEXOLE 0.125 MG TABLET 0.375 MG PO ×2 (08:20→16:15)
[2021-03-27] MEDS: FERROUS SULFATE 324 MG TABLET PO (08:20)
[2021-03-27] MEDS: VITAMIN B COMPLEX CAPSULE 1 CAP PO (08:20)
[2021-03-27] MEDS: MAGNESIUM OXIDE 400 MG TABLET PO (08:20)
[2021-03-27] MEDS: TAMSULOSIN HCL 0.4 MG CAPSULE BY MOUTH (08:20)
[2021-03-27] MEDS: LANSOPRAZOLE ORAL SUSP 30 MG/10 ML ORAL.SUSP PO ×2 (08:28→16:17)
[2021-03-27 08:59] LABS: Influenza Control Positive
[2021-03-27] MEDS: guaiFENesin 12 HR 600 MG TABCR PO ×2 (09:19→20:03)
[2021-03-27 09:33] LABS: Hematocrit 44.7 % (42.0-52.0); Hemoglobin 15.1 g/dL (14.0-18.0); Immature Granulocyte Absolute 0.02 K/mm3 (0.00-0.031); Immature Granulocyte Percent A 0.3 % (0-0.5); Lymphocytes Absolute Auto 0.44 K/mm3 (0.9-3.2); Lymphocytes Percent Auto 5.9 % (18.3-44.2); Mean Corpuscular HGB Conc 33.8 g/dl (32-36); Mean Corpuscular Hemoglobin 31.4 pg (26-34); Mean Corpuscular Volume 92.9 fl (80-100); Mean Platelet Volume 9.8 fl (7.4-10.4); Monocytes Absolute Auto 0.5 K/mm3 (0.1-0.6); Neutrophils Absolute Auto 6.6 K/mm3 (1.3-6.7); Neutrophils Percent Auto 87.8 % (45.5-73.1); Platelet Count Result 219 k/mm3 (150-375); Red Blood Count 4.81 M/mm3 (4.6-6.20); Red Cell Distribution Width 15.1 % (11.5-14.5); White Blood Count 7.5 K/mm3 (4.5-10.0)
[2021-03-27 09:43] LABS: Alanine Aminotransferase 36 U/L (4-50); Albumin Level 4.5 g/dL (3.5-5.1); Alkaline Phosphatase 177 U/L (38-126); Anion Gap 11 mmol/L (8-16); Aspartate Amino Transferase 44 U/L (17-59); Bilirubin,Total 0.6 mg/dL (0.2-1.3); Blood Urea Nitrogen 36 mg/dL (9-20); Calcium 9.3 mg/dL (8.4-10.2); Carbon Dioxide 27 mmol/L (22-30); Chloride 99 mmol/L (98-107); Estimated CRCL calculation 42 ml/min; Estimated Glomerular Filt Rate 47; Glucose 165 mg/dL (65-110); Lactate Dehydrogenase 843 U/L (313-618); Magnesium 2.6 mg/dL (1.6-2.3); Potassium 4.4 mmol/L (3.4-5.0); Sodium 137 mmol/L (137-145)
[2021-03-27 09:47] LABS: CRP 25.6 mg/dL (<1.0)
[2021-03-27 10:28] LABS: Thyroid Stimulating Hormone Reflex 0.949 uIU/mL (0.465-4.68)
[2021-03-27] MEDS: LORazepam (*CRX) 0.5 MG TABLET PO ×2 (11:53→20:09)
--- NOTE | 2021-03-27 13:30 | PM.IMPN ---
Progress Note: A&P Assessment and Plan (1) Pneumonia: Code(s): J18.9 - Pneumonia, unspecified organism Status: Acute Assessment and Plan: CXR and symptoms consistent with PNA. Day 7 of symptoms -will continue ceftriaxone and azithromycin for possible bacterial component -Consider COVID since his is positive for COVID. Influenza negative. -He was vaccinated with 2 doses of an mRNA vaccine but no booster (he thinks it was Moderna) -continue isolation -if covid negative, will check urine antigens -if covid + will start remdesivir. Due to his high risk of covid, dexadron was started. -continue O2 to keeps sats >90 -CTA without PE concern (2) Acute respiratory failure with hypoxia: Code(s): J96.01 - Acute respiratory failure with hypoxia Status: Acute Assessment and Plan: Due to above -continue o2 for sats <90 (3) Sinus tachycardia: Code(s): R00.0 - Tachycardia, unspecified Status: Acute Assessment and Plan: Resolved. Likely due to infection. No CP -continue home diltiazem -CTA negative for PE, TSH normal (4) Sepsis: Code(s): A41.9 - Sepsis, unspecified organism Status: Acute Assessment and Plan: 2/2 to above -lactic acid normal -continue abx -blood cx no growth to date (5) Person under investigation for COVID-19: Code(s): Z20.822 - Contact with and (suspected) exposure to COVID-19 Status: Acute Assessment and Plan: Await PCR and continue isolation (6) HTN (hypertension): Qualifiers: Hypertension type: essential hypertension Qualified Code(s): I10 - Essential (primary) hypertension Code(s): I10 - Essential (primary) hypertension Status: Chronic Assessment and Plan: Last bp 152/71 -continue diltiazem and will do PRN hydralazine (7) Hypothyroidism: Code(s): E03.9 - Hypothyroidism, unspecified Status: Acute Assessment and Plan: Continue levothyroxine -TSH normal (8) Chronic pain: Code(s): G89.29 - Other chronic pain Status: Acute Assessment and Plan: He has been on Hydrocodone for > 10 years for his low back pain according to PCP notes -will continue with his home pain medications -monitor for hypoxia (9) Chronic post-traumatic stress 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 combat: Code(s): F43.12 - Post-traumatic stress disorder, chronic Status: Acute Assessment and Plan: Ativan started -patient states he usually does not have to take anything at home because he is not usually locked up in one confined area. 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 He states the medication does help. I understand that we cannot open the window or really walk him around the hospital since he has possible COVID but he is to reach out if he feels this way again. At the very least maybe we can at least open the door for a second or sit with him for moral support during this time. He said his is helpful in these situations and he can call her during this time, too. Time Spent With Patient Time with patient: 25 - 35 minutes Subjective Date/time seen: 03/27/21 13:30 Interval history: Pt is a 65-year-old male here for pneumonia, likely COVID. Patient was seen today and states he feels he is doing about the same. He continues to have cough with deep inspiration. He says this is a dry cough with no sputum production. He has no shortness of breath with ambulation with the oxygen. No chest pain, nausea, vomiting, fevers, chills, or leg swelling. He said he has PTSD after being a prisoner of war for 28 days and being locked up in his hospital room cause some distress. He says the Ativan does help. He does not usually have this problem at home because he is not locked up and therefore does not take anything for that. I spoke with his daughter, Orquidea at patient's request and informed her
[2021-03-27 14:20] LABS: SARS-CoV-2 RNA PCR Positive
[2021-03-27] MEDS: SODIUM CHLORIDE 0.9% IV 250 ML 100 ML IV CONT (14:58)
[2021-03-27 16:00] LABS: Prothrombin Time 13.3 Seconds (11.1-14.7)
[2021-03-27] MEDS: REMDESIVIR 200 MG/NS 250 ML 200 MG/250 ML BAG 250 MG IVPB (16:13)
[2021-03-27] MEDS: ENOXAPARIN 40 MG/0.4 ML SYRINGE SUB-Q (17:35)
[2021-03-27] MEDS: HYDROcodone/acetaminophen (*CRX) 7.5-325 MG TABLET 1 TAB PO (20:16)
[2021-03-28] VITALS (7 sets, daily range): BP systolic 111–158; BP diastolic 67–77; PULSE 76–102; RESP 16–24; TEMP 36.3–37; O2SAT 90–93
[2021-03-28] MEDS: LEVALBUTEROL HFA (*SP) 15 GM INHALER 2 PUFF INHALATION ×2 (05:32→20:32)
[2021-03-28] MEDS: LORazepam (*CRX) 0.5 MG TABLET PO ×3 (05:38→22:43)
[2021-03-28] MEDS: LEVOTHYROXINE SODIUM 112 MCG TABLET PO (05:38)
[2021-03-28] MEDS: LEVOTHYROXINE SODIUM 25 MCG TABLET PO (05:38)
[2021-03-28 06:26] LABS: Hematocrit 44.7 % (42.0-52.0); Hemoglobin 15.3 g/dL (14.0-18.0); Mean Corpuscular HGB Conc 34.2 g/dl (32-36); Mean Corpuscular Hemoglobin 31.3 pg (26-34); Mean Corpuscular Volume 91.4 fl (80-100); Mean Platelet Volume 9.9 fl (7.4-10.4); Platelet Count Result 254 k/mm3 (150-375); Red Blood Count 4.89 M/mm3 (4.6-6.20); Red Cell Distribution Width 15.1 % (11.5-14.5)
[2021-03-28 06:39] LABS: Alanine Aminotransferase 41 U/L (4-50); Anion Gap 13 mmol/L (8-16); Blood Urea Nitrogen 43 mg/dL (9-20); Calcium 9.3 mg/dL (8.4-10.2); Carbon Dioxide 25 mmol/L (22-30); Chloride 100 mmol/L (98-107); Estimated CRCL calculation 45 ml/min; Estimated Glomerular Filt Rate 51; Glucose 122 mg/dL (65-110); Potassium 4.2 mmol/L (3.4-5.0); Sodium 138 mmol/L (137-145)
[2021-03-28 07:06] LABS: Prothrombin Time 13.5 Seconds (11.1-14.7)
[2021-03-28] MEDS: DEXAMETHASONE SOD PHOS INJ 4 MG/ML VIAL 6 MG IV PUSH (08:31)
[2021-03-28] MEDS: VITAMIN B COMPLEX CAPSULE 1 CAP PO (08:32)
[2021-03-28] MEDS: ASCORBIC ACID 500 MG TABLET 1000 MG PO (08:32)
[2021-03-28] MEDS: PRAMIPEXOLE 0.125 MG TABLET 0.375 MG PO ×2 (08:32→17:09)
[2021-03-28] MEDS: TAMSULOSIN HCL 0.4 MG CAPSULE BY MOUTH (08:32)
[2021-03-28] MEDS: CHOLECALCIFEROL 1,000 UNITS TABLET 2000 UNITS PO (08:33)
[2021-03-28] MEDS: guaiFENesin 12 HR 600 MG TABCR PO ×2 (08:33→22:42)
[2021-03-28] MEDS: FERROUS SULFATE 324 MG TABLET PO (08:33)
[2021-03-28] MEDS: ATORVASTATIN 20 MG TABLET BY MOUTH (08:33)
[2021-03-28] MEDS: CALCIUM CARBONATE (OSCAL) 500 MG TABLET PO (08:33)
[2021-03-28] MEDS: MAGNESIUM OXIDE 400 MG TABLET PO (08:33)
[2021-03-28] MEDS: OMEGA 3 POLYUNSAT FATTY ACIDS 1 GM CAP PO (08:34)
[2021-03-28] MEDS: LANSOPRAZOLE ORAL SUSP 30 MG/10 ML ORAL.SUSP PO ×2 (08:36→17:11)
[2021-03-28] MEDS: PSYLLIUM POWDER PACKET 1 PACKET BY MOUTH (08:37)
[2021-03-28] MEDS: ACETAMINOPHEN 325 MG TABLET 650 MG PO (10:30)
[2021-03-28] MEDS: REMDESIVIR 100 MG/NS 250 ML 100 MG/250 ML BAG 250 MG IVPB (10:59)
--- NOTE | 2021-03-28 15:31 | PM.IMPN ---
Progress Note: A&P Assessment and Plan (1) Pneumonia due to COVID-19 virus: Code(s): U07.1 - COVID-19; J12.82 - Pneumonia due to coronavirus disease 2018 Status: Acute Assessment and Plan: PCR + for covid -continue decadron, remdesivir, and lovenox -stop abx -schedule inhaler and obtain IS -pt has had 2 of the mRNA vaccines -continue O2 for sats<90 -CTA without concern for PE (2) Pneumonia: Code(s): J18.9 - Pneumonia, unspecified organism Status: Acute Assessment and Plan: as above (3) Acute respiratory failure with hypoxia: Code(s): J96.01 - Acute respiratory failure with hypoxia Status: Acute Assessment and Plan: Due to above -continue o2 for sats <90 (4) Sinus tachycardia: Code(s): R00.0 - Tachycardia, unspecified Status: Acute Assessment and Plan: Resolved. Likely due to infection. No CP -continue home diltiazem -CTA negative for PE, TSH normal (5) Sepsis: Code(s): A41.9 - Sepsis, unspecified organism Status: Acute Assessment and Plan: 2/2 to above -lactic acid normal -continue abx -blood cx no growth to date (6) Person under investigation for COVID-19: Code(s): Z20.822 - Contact with and (suspected) exposure to COVID-19 Status: Acute Assessment and Plan: PCR + (7) HTN (hypertension): Qualifiers: Hypertension type: essential hypertension Qualified Code(s): I10 - Essential (primary) hypertension Code(s): I10 - Essential (primary) hypertension Status: Chronic Assessment and Plan: Last bp 111/68 -continue diltiazem and will do PRN hydralazine (8) Hypothyroidism: Code(s): E03.9 - Hypothyroidism, unspecified Status: Acute Assessment and Plan: Continue levothyroxine -TSH normal (9) Chronic pain: Code(s): G89.29 - Other chronic pain Status: Acute Assessment and Plan: He has been on Hydrocodone for > 10 years for his low back pain according to PCP notes -will continue with his home pain medications -monitor for hypoxia (10) Chronic post-traumatic stress 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 combat: Code(s): F43.12 - Post-traumatic stress disorder, chronic Status: Acute Assessment and Plan: continue ativan -patient states he usually does not have to take anything at home because he is not usually locked up in one confined area. 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 He states the medication does help. I understand that we cannot open the window or really walk him around the hospital since he has possible COVID but he is to reach out if he feels this way again. At the very least maybe we can at least open the door for a second or sit with him for moral support during this time. He said his and daughter are helpful in these situations and he can call them during this time, too. Subjective Date/time seen: 03/28/21 15:31 Interval history: Pt is a 65-year-old male here for COVID. Pt was seen today and still is coughing and can't take deep breaths. He says he doesn't feel any better compared to yesterday. He denies CP, fevers, chills, nausea, vomiting, diarrhea or constipation. He does not like the heart healthy food. He isn't sleeping very well. When this happens at home he usually just walks around and he feels better. He did not mention to me but his daughter told me that he may have fell yesterday. He told her that he fell against the wall and slid down but did not hit his head. Daughter works in medicine and relayed this message. Pt did not tell me this. RN notified. Exam Narrative: General:Well developed well nourished patient HEENT: Normocephalic, atraumatic, PERRL, Sclerae anicteric, oral mucosa moist. Neck: Supple Resp: Decreased breath sounds bilateral with mild crackles at the bases 3L of o2 applied. unable to take deep
[2021-03-28] MEDS: ENOXAPARIN 40 MG/0.4 ML SYRINGE SUB-Q (17:08)
[2021-03-29] VITALS (8 sets, daily range): BP systolic 126–159; BP diastolic 57–84; PULSE 63–83; RESP 18–20; TEMP 36.4–37.2; O2SAT 87–95
[2021-03-29] MEDS: LEVOTHYROXINE SODIUM 112 MCG TABLET PO (06:24)
[2021-03-29] MEDS: LEVOTHYROXINE SODIUM 25 MCG TABLET PO (06:24)
[2021-03-29 07:59] LABS: Basophils Percent Auto 0.1 % (0.2-1.2); Hematocrit 43.9 % (42.0-52.0); Hemoglobin 14.7 g/dL (14.0-18.0); Immature Granulocyte Absolute 0.08 K/mm3 (0.00-0.031); Immature Granulocyte Percent A 0.9 % (0-0.5); Lymphocytes Absolute Auto 0.52 K/mm3 (0.9-3.2); Lymphocytes Percent Auto 6.1 % (18.3-44.2); Mean Corpuscular HGB Conc 33.5 g/dl (32-36); Mean Corpuscular Hemoglobin 30.5 pg (26-34); Mean Corpuscular Volume 91.1 fl (80-100); Mean Platelet Volume 9.9 fl (7.4-10.4); Monocytes Absolute Auto 0.7 K/mm3 (0.1-0.6); Neutrophils Absolute Auto 7.3 K/mm3 (1.3-6.7); Neutrophils Percent Auto 84.9 % (45.5-73.1); Platelet Count Result 257 k/mm3 (150-375); Red Blood Count 4.82 M/mm3 (4.6-6.20); Red Cell Distribution Width 15.3 % (11.5-14.5); White Blood Count 8.6 K/mm3 (4.5-10.0)
[2021-03-29 08:06] LABS: INR 1.1
[2021-03-29] MEDS: VITAMIN B COMPLEX CAPSULE 1 CAP PO (08:28)
[2021-03-29] MEDS: PSYLLIUM POWDER PACKET 1 PACKET BY MOUTH (08:28)
[2021-03-29] MEDS: CHOLECALCIFEROL 1,000 UNITS TABLET 2000 UNITS PO (08:29)
[2021-03-29] MEDS: OMEGA 3 POLYUNSAT FATTY ACIDS 1 GM CAP PO (08:29)
[2021-03-29] MEDS: guaiFENesin 12 HR 600 MG TABCR PO ×2 (08:29→23:03)
[2021-03-29] MEDS: ASCORBIC ACID 500 MG TABLET 1000 MG PO (08:29)
[2021-03-29] MEDS: CALCIUM CARBONATE (OSCAL) 500 MG TABLET PO (08:29)
[2021-03-29] MEDS: PRAMIPEXOLE 0.125 MG TABLET 0.375 MG PO ×2 (08:29→16:11)
[2021-03-29] MEDS: ATORVASTATIN 20 MG TABLET BY MOUTH (08:29)
[2021-03-29] MEDS: FERROUS SULFATE 324 MG TABLET PO (08:29)
[2021-03-29] MEDS: TAMSULOSIN HCL 0.4 MG CAPSULE BY MOUTH (08:30)
[2021-03-29] MEDS: MAGNESIUM OXIDE 400 MG TABLET PO (08:30)
[2021-03-29] MEDS: LANSOPRAZOLE ORAL SUSP 30 MG/10 ML ORAL.SUSP PO ×2 (08:30→16:11)
[2021-03-29] MEDS: DEXAMETHASONE SOD PHOS INJ 4 MG/ML VIAL 6 MG IV PUSH (08:30)
[2021-03-29 08:31] LABS: Alanine Aminotransferase 51 U/L (4-50); Anion Gap 9 mmol/L (8-16); Blood Urea Nitrogen 39 mg/dL (9-20); Calcium 9.2 mg/dL (8.4-10.2); Carbon Dioxide 28 mmol/L (22-30); Chloride 103 mmol/L (98-107); Estimated CRCL calculation 52 ml/min; Estimated Glomerular Filt Rate 60; Glucose 108 mg/dL (65-110); Potassium 4.1 mmol/L (3.4-5.0); Sodium 140 mmol/L (137-145)
--- NOTE | 2021-03-29 10:43 | PCRCNOTE ---
Addendum entered by Shantell Burnett RRT 03/29/21 10:50: Note was entered under the wrong therapist name. Note was entered by Shantell Burnett RRT Original Note: Window of time for administration has passed. See next scheduled administration.
[2021-03-29] MEDS: REMDESIVIR 100 MG/NS 250 ML 100 MG/250 ML BAG 250 MG IVPB (11:04)
[2021-03-29] MEDS: LEVALBUTEROL HFA (*SP) 15 GM INHALER 2 PUFF INHALATION ×2 (11:28→20:53)
--- NOTE | 2021-03-29 15:10 | PM.IMPN ---
Progress Note: A&P Assessment and Plan (1) Pneumonia due to COVID-19 virus: Code(s): U07.1 - COVID-19; J12.82 - Pneumonia due to coronavirus disease 2019 Status: Acute Assessment and Plan: Pt tested positive for covid 03/26/21 -pt up to 6L today. If he continues to need any further o2 may consider baricitinib -continue decadron, remdesivir, and lovenox -abx have been stopped -continue inhalers and spirometer -CXR shows stable PNA -pt has had 2 of the mRNA vaccines -continue O2 for sats<90 -CTA without concern for PE (2) Pneumonia: Code(s): J18.9 - Pneumonia, unspecified organism Status: Acute Assessment and Plan: as above (3) Acute respiratory failure with hypoxia: Code(s): J96.01 - Acute respiratory failure with hypoxia Status: Acute Assessment and Plan: Due to above -continue o2 for sats <90 (4) Sinus tachycardia: Code(s): R00.0 - Tachycardia, unspecified Status: Acute Assessment and Plan: Resolved. Likely due to infection. No CP -continue home diltiazem -CTA negative for PE, TSH normal (5) Sepsis: Code(s): A41.9 - Sepsis, unspecified organism Status: Acute Assessment and Plan: 2/2 to above -lactic acid normal -continue abx -blood cx no growth to date (6) Person under investigation for COVID-19: Code(s): Z20.822 - Contact with and (suspected) exposure to COVID-19 Status: Acute Assessment and Plan: PCR positive 03/26/21 -continue isolation (7) HTN (hypertension): Qualifiers: Hypertension type: essential hypertension Qualified Code(s): I10 - Essential (primary) hypertension Code(s): I10 - Essential (primary) hypertension Status: Chronic Assessment and Plan: Last bp 154/57 -continue diltiazem and will do PRN hydralazine (8) Hypothyroidism: Code(s): E03.9 - Hypothyroidism, unspecified Status: Acute Assessment and Plan: Continue levothyroxine -TSH normal (9) Chronic pain: Code(s): G89.29 - Other chronic pain Status: Acute Assessment and Plan: He has been on Hydrocodone for > 10 years for his low back pain according to PCP notes -will continue with his home pain medications -monitor for hypoxia (10) Chronic post-traumatic stress 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 combat: Code(s): F43.12 - Post-traumatic stress disorder, chronic Status: Acute Assessment and Plan: continue ativan -patient states he usually does not have to take anything at home because he is not usually locked up in one confined area. 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 He states the medication does help. I understand that we cannot open the window or really walk him around the hospital since he has possible COVID but he is to reach out if he feels this way again. At the very least maybe we can at least open the door for a second or sit with him for moral support during this time. He said his and daughter are helpful in these situations and he can call them during this time, too. Subjective Date/time seen: 03/29/21 15:10 Interval history: Pt is a 65-year-old male here for COVID. Pt was seen today and feels better today than he did yesterday. He was able to sleep a little more which is helping. He has been using the spirometer and is able to take deeper breaths. He has no CP, nausea, vomiting, fevers, chills, diarrhea or constipation. He continues to cough if he talks to much. Exam Narrative: General:Well developed well nourished patient HEENT: Normocephalic, atraumatic, PERRL, Sclerae anicteric, oral mucosa moist. Neck: Supple Resp: Decreased breath sounds bilateral with mild crackles at the bases 6L of o2 applied at 91%. Able to take deeper breaths today but still not fully able to take deep breaths without coughing. Heart: RRR Abd: Soft, non-dist
[2021-03-29] MEDS: ENOXAPARIN 40 MG/0.4 ML SYRINGE SUB-Q (17:27)
[2021-03-30] VITALS (11 sets, daily range): BP systolic 129–150; BP diastolic 63–97; PULSE 63–105; RESP 18–20; TEMP 36.5–36.9; O2SAT 90–96
[2021-03-30] MEDS: LORazepam (*CRX) 0.5 MG TABLET PO ×2 (02:13→20:22)
[2021-03-30] MEDS: HYDROcodone/acetaminophen (*CRX) 7.5-325 MG TABLET 1 TAB PO ×2 (02:13→20:20)
[2021-03-30] MEDS: LEVOTHYROXINE SODIUM 112 MCG TABLET PO (06:52)
[2021-03-30] MEDS: LEVOTHYROXINE SODIUM 25 MCG TABLET PO (06:52)
[2021-03-30 07:09] LABS: Hematocrit 44.5 % (42.0-52.0); Hemoglobin 15.1 g/dL (14.0-18.0); Mean Corpuscular HGB Conc 33.9 g/dl (32-36); Mean Corpuscular Hemoglobin 31.5 pg (26-34); Mean Corpuscular Volume 92.7 fl (80-100); Mean Platelet Volume 9.6 fl (7.4-10.4); Platelet Count Result 282 k/mm3 (150-375); Red Cell Distribution Width 15.2 % (11.5-14.5); White Blood Count 8.6 K/mm3 (4.5-10.0)
[2021-03-30 07:21] LABS: INR 1.3; Prothrombin Time 15.6 Seconds (11.1-14.7)
[2021-03-30 07:28] LABS: Alanine Aminotransferase 50 U/L (4-50); Albumin Level 3.9 g/dL (3.5-5.1); Alkaline Phosphatase 147 U/L (38-126); Anion Gap 9 mmol/L (8-16); Aspartate Amino Transferase 46 U/L (17-59); Bilirubin,Total 0.8 mg/dL (0.2-1.3); Blood Urea Nitrogen 37 mg/dL (9-20); Calcium 9.3 mg/dL (8.4-10.2); Carbon Dioxide 27 mmol/L (22-30); Chloride 104 mmol/L (98-107); Estimated CRCL calculation 52 ml/min; Estimated Glomerular Filt Rate 60; Glucose 135 mg/dL (65-110); Potassium 4.4 mmol/L (3.4-5.0); Sodium 140 mmol/L (137-145)
[2021-03-30 07:41] LABS: CRP 11.9 mg/dL (<1.0)
[2021-03-30] MEDS: LEVALBUTEROL HFA (*SP) 15 GM INHALER 2 PUFF INHALATION ×3 (08:28→20:14)
[2021-03-30] MEDS: PRAMIPEXOLE 0.125 MG TABLET 0.375 MG PO ×2 (10:15→17:46)
[2021-03-30] MEDS: CALCIUM CARBONATE (OSCAL) 500 MG TABLET PO (10:15)
[2021-03-30] MEDS: TAMSULOSIN HCL 0.4 MG CAPSULE BY MOUTH (10:15)
[2021-03-30] MEDS: PSYLLIUM POWDER PACKET 1 PACKET BY MOUTH (10:16)
[2021-03-30] MEDS: VITAMIN B COMPLEX CAPSULE 1 CAP PO (10:16)
[2021-03-30] MEDS: ASCORBIC ACID 500 MG TABLET 1000 MG PO (10:16)
[2021-03-30] MEDS: guaiFENesin 12 HR 600 MG TABCR PO ×2 (10:16→20:13)
[2021-03-30] MEDS: CHOLECALCIFEROL 1,000 UNITS TABLET 2000 UNITS PO (10:16)
[2021-03-30] MEDS: ATORVASTATIN 20 MG TABLET BY MOUTH (10:16)
[2021-03-30] MEDS: FERROUS SULFATE 324 MG TABLET PO (10:16)
[2021-03-30] MEDS: LANSOPRAZOLE ORAL SUSP 30 MG/10 ML ORAL.SUSP PO ×2 (10:17→17:46)
[2021-03-30] MEDS: DEXAMETHASONE SOD PHOS INJ 4 MG/ML VIAL 6 MG IV PUSH (10:17)
[2021-03-30] MEDS: OMEGA 3 POLYUNSAT FATTY ACIDS 1 GM CAP PO (10:17)
[2021-03-30] MEDS: MAGNESIUM OXIDE 400 MG TABLET PO (10:18)
[2021-03-30] MEDS: REMDESIVIR 100 MG/NS 250 ML 100 MG/250 ML BAG 250 MG IVPB (10:18)
--- NOTE | 2021-03-30 15:18 | PM.IMPN ---
Progress Note: A&P Assessment and Plan (1) Pneumonia due to COVID-19 virus: Code(s): U07.1 - COVID-19; J12.82 - Pneumonia due to coronavirus disease 2019 Status: Acute Assessment and Plan: Pt tested positive for covid 03/26/21 -pt up to 7L today. Will start baricitinib -continue decadron, remdesivir, and lovenox -abx have been stopped -continue inhalers and spirometer -CXR yesterday shows stable PNA -pt has had 2 of the mRNA vaccines -continue O2 for sats<90. He would like to try the mask instead of the nasal cannula. -CTA without concern for PE (2) Pneumonia: Code(s): J18.9 - Pneumonia, unspecified organism Status: Acute Assessment and Plan: as above (3) Acute respiratory failure with hypoxia: Code(s): J96.01 - Acute respiratory failure with hypoxia Status: Acute Assessment and Plan: Due to above -continue o2 for sats <90 (4) Sinus tachycardia: Code(s): R00.0 - Tachycardia, unspecified Status: Acute Assessment and Plan: Resolved. Likely due to infection. No CP -continue home diltiazem -CTA negative for PE, TSH normal (5) Sepsis: Code(s): A41.9 - Sepsis, unspecified organism Status: Acute Assessment and Plan: 2/2 to above -lactic acid normal -continue abx -blood cx no growth to date (6) Person under investigation for COVID-19: Code(s): Z20.822 - Contact with and (suspected) exposure to COVID-19 Status: Acute Assessment and Plan: PCR positive 03/26/21 -continue isolation (7) HTN (hypertension): Qualifiers: Hypertension type: essential hypertension Qualified Code(s): I10 - Essential (primary) hypertension Code(s): I10 - Essential (primary) hypertension Status: Chronic Assessment and Plan: Last bp 150/86 -continue diltiazem and will do PRN hydralazine (8) Hypothyroidism: Code(s): E03.9 - Hypothyroidism, unspecified Status: Acute Assessment and Plan: Continue levothyroxine -TSH normal (9) Chronic pain: Code(s): G89.29 - Other chronic pain Status: Acute Assessment and Plan: He has been on Hydrocodone for > 10 years for his low back pain according to PCP notes -will continue with his home pain medications -monitor for hypoxia (10) Chronic post-traumatic stress 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 combat: Code(s): F43.12 - Post-traumatic stress disorder, chronic Status: Acute Assessment and Plan: continue ativan -patient states he usually does not have to take anything at home because he is not usually locked up in one confined area. 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 He states the medication does help. I understand that we cannot open the window or really walk him around the hospital since he has possible COVID but he is to reach out if he feels this way again. At the very least maybe we can at least open the door for a second or sit with him for moral support during this time. He said his and daughter are helpful in these situations and he can call them during this time, too. Subjective Date/time seen: 03/30/21 15:18 Interval history: Pt is a 65-year-old male here for COVID. Patient was seen today and states he just does not feel like he is getting better. He continues to have a cough which causes him to be short of breath. This is a nonproductive cough. He has no chest pain with this. He is eating and drinking well. He has no nausea, vomiting, diarrhea or constipation. Exam Narrative: General:Well developed well nourished patient HEENT: Normocephalic, atraumatic, PERRL, Sclerae anicteric, oral mucosa moist. Neck: Supple Resp: Decreased breath sounds bilateral with mild crackles at the bases 7L of o2 applied at 90%. Able to take deeper breaths today but still not fully able to take deep breaths without coughing.
[2021-03-30 17:38] LABS: Hepatitis B Surface Antigen Negative (Negative)
[2021-03-30] MEDS: ENOXAPARIN 40 MG/0.4 ML SYRINGE SUB-Q (17:46)
[2021-03-30] MEDS: BENZONATATE 100 MG CAPSULE 200 MG PO (17:46)
[2021-03-30 17:47] LABS: HAV RESULT Negative (Negative); Hepatitis B Core IgM Result Negative (Negative)
[2021-03-30 17:56] LABS: Hepatitis C Virus Antibody Negative (Negative)
[2021-03-31 03:27] VITALS: BP 138/102; PULSE 68; RESP 22; TEMP 37.1; O2SAT 95
[2021-03-31] MEDS: LORazepam (*CRX) 0.5 MG TABLET PO ×3 (07:14→20:45)
[2021-03-31] MEDS: LEVOTHYROXINE SODIUM 112 MCG TABLET PO (07:14)
[2021-03-31] MEDS: LEVOTHYROXINE SODIUM 25 MCG TABLET PO (07:14)
[2021-03-31 07:49] LABS: Basophils Absolute Auto 0.1 K/mm3 (0.0-0.1); Basophils Percent Auto 0.7 % (0.2-1.2); Hematocrit 45.9 % (42.0-52.0); Hemoglobin 15.5 g/dL (14.0-18.0); Immature Granulocyte Percent A 2.2 % (0-0.5); Lymphocytes Absolute Auto 0.86 K/mm3 (0.9-3.2); Lymphocytes Percent Auto 6.4 % (18.3-44.2); Mean Corpuscular HGB Conc 33.8 g/dl (32-36); Mean Corpuscular Hemoglobin 30.8 pg (26-34); Mean Corpuscular Volume 91.1 fl (80-100); Mean Platelet Volume 9.6 fl (7.4-10.4); Monocytes Absolute Auto 1.2 K/mm3 (0.1-0.6); Monocytes Percent Auto 8.5 % (2.6-8.5); Neutrophils Absolute Auto 11.1 K/mm3 (1.3-6.7); Neutrophils Percent Auto 82.2 % (45.5-73.1); Platelet Count Result 410 k/mm3 (150-375); Red Blood Count 5.04 M/mm3 (4.6-6.20); Red Cell Distribution Width 15.1 % (11.5-14.5); White Blood Count 13.5 K/mm3 (4.5-10.0)
[2021-03-31 07:58] LABS: Alanine Aminotransferase 59 U/L (4-50); Alkaline Phosphatase 162 U/L (38-126); Anion Gap 12 mmol/L (8-16); Aspartate Amino Transferase 46 U/L (17-59); Bilirubin,Total 0.8 mg/dL (0.2-1.3); Blood Urea Nitrogen 38 mg/dL (9-20); CRP 5.3 mg/dL (<1.0); Calcium 9.5 mg/dL (8.4-10.2); Carbon Dioxide 26 mmol/L (22-30); Chloride 104 mmol/L (98-107); Estimated CRCL calculation 61 ml/min; Estimated Glomerular Filt Rate > 60; Glucose 135 mg/dL (65-110); Potassium 4.3 mmol/L (3.4-5.0); Sodium 142 mmol/L (137-145)
[2021-03-31 08:00] VITALS: BP 144/71; PULSE 62; RESP 16; TEMP 36.3; O2SAT 91
[2021-03-31 08:01] LABS: INR 1.1; Prothrombin Time 14.3 Seconds (11.1-14.7)
[2021-03-31] MEDS: ASCORBIC ACID 500 MG TABLET 1000 MG PO (10:05)
[2021-03-31] MEDS: CHOLECALCIFEROL 1,000 UNITS TABLET 2000 UNITS PO (10:05)
[2021-03-31] MEDS: TAMSULOSIN HCL 0.4 MG CAPSULE BY MOUTH (10:05)
[2021-03-31] MEDS: VITAMIN B COMPLEX CAPSULE 1 CAP PO (10:05)
[2021-03-31] MEDS: guaiFENesin 12 HR 600 MG TABCR PO ×2 (10:06→20:45)
[2021-03-31] MEDS: CALCIUM CARBONATE (OSCAL) 500 MG TABLET PO (10:06)
[2021-03-31] MEDS: OMEGA 3 POLYUNSAT FATTY ACIDS 1 GM CAP PO (10:06)
[2021-03-31] MEDS: PRAMIPEXOLE 0.125 MG TABLET 0.375 MG PO ×2 (10:06→17:37)
[2021-03-31] MEDS: PSYLLIUM POWDER PACKET 1 PACKET BY MOUTH (10:06)
[2021-03-31] MEDS: ATORVASTATIN 20 MG TABLET BY MOUTH (10:06)
[2021-03-31] MEDS: MAGNESIUM OXIDE 400 MG TABLET PO (10:07)
[2021-03-31] MEDS: BENZONATATE 100 MG CAPSULE 200 MG PO ×4 (10:08→20:45)
[2021-03-31] MEDS: DEXAMETHASONE SOD PHOS INJ 4 MG/ML VIAL 6 MG IV PUSH (10:08)
[2021-03-31] MEDS: REMDESIVIR 100 MG/NS 250 ML 100 MG/250 ML BAG 250 MG IVPB (10:09)
[2021-03-31] MEDS: BARICITINIB 2 MG TABLET 4 MG PO (10:10)
[2021-03-31 12:00] VITALS: BP 135/72; PULSE 65; RESP 16; TEMP 36.3; O2SAT 92
--- NOTE | 2021-03-31 12:45 | PM.IMPN ---
Progress Note: A&P Assessment and Plan (1) Pneumonia due to COVID-19 virus: Code(s): U07.1 - COVID-19; J12.82 - Pneumonia due to coronavirus disease 2018 Status: Acute Assessment and Plan: Pt tested positive for covid 03/26/21 -pt down to 3LNC. Will start baricitinib -continue decadron, remdesivir, and lovenox -abx have been stopped -continue inhalers and spirometer -add cornet -Check inflammatory markers in the am -CXR yesterday shows stable PNA -pt has had 2 of the mRNA vaccines -continue O2 for sats<90. He would like to try the mask instead of the nasal cannula. -CTA without concern for PE Will check BNP Give one dose of lasix (2) Pneumonia: Code(s): J18.9 - Pneumonia, unspecified organism Status: Acute Assessment and Plan: as above (3) Acute respiratory failure with hypoxia: Code(s): J96.01 - Acute respiratory failure with hypoxia Status: Acute Assessment and Plan: Due to above -continue o2 for sats >90 (4) HTN (hypertension): Qualifiers: Hypertension type: essential hypertension Qualified Code(s): I10 - Essential (primary) hypertension Code(s): I10 - Essential (primary) hypertension Status: Chronic Assessment and Plan: Last bp 135/72 -continue diltiazem and will do PRN hydralazine (5) Hypothyroidism: Code(s): E03.9 - Hypothyroidism, unspecified Status: Acute Assessment and Plan: Continue levothyroxine -TSH normal (6) Chronic pain: Code(s): G89.29 - Other chronic pain Status: Acute Assessment and Plan: He has been on Hydrocodone for > 10 years for his low back pain according to PCP notes -will continue with his home pain medications -monitor for hypoxia (7) Chronic post-traumatic stress 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 combat: Code(s): F43.12 - Post-traumatic stress disorder, chronic Status: Acute Assessment and Plan: continue ativan -patient states he usually does not have to take anything at home because he is not usually locked up in one confined area. 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 He states the medication does help. I understand that we cannot open the window or really walk him around the hospital since he has possible COVID but he is to reach out if he feels this way again. At the very least maybe we can at least open the door for a second or sit with him for moral support during this time. He said his and daughter are helpful in these situations and he can call them during this time, too. -Patient continues to experience difficulties as described above. -Ativan on JUN for help Time Spent With Patient Time with patient: Greater than 35 minutes Subjective Date/time seen: 03/31/21 1245 Interval history: Date/Time: 03/26/21 14:11 Narrative: Pt is a 65 y/o male with a PMH of HTN, chronic pain, BPH, and hypothyroidism who is fully vaccinated with an mRNA vaccine x 2 who presented emergency room on 03/26 for shortness of breath. Pt states his is currently + for COVID after being around her grandkids. He started having similar symptoms on 03/20. He states he has a continuos dry cough and feels SOB with activity. He has noticed he has been having fevers and decreased appetite. He denies CP, nausea, vomiting, dysuria, constipation, diarrhea, new pain,or leg swelling. He has no hx of blood clots. He feels better with the oxygen but continues to have a cough. Date/Time 03/31/21 1245 Patient is sitting up in the chair. Patient stated that he does not have any complaints this time. Patient stated that he is not have any chest pain, nausea, vomiting, abdominal pain, weakness, fatigue. Patient is short of breath and very anxious. Patient suffers from PTSD and keeps saying that he is Going to have a breakdown if he does not get out of here soon. Patient was able to walk and his oxygen was
[2021-03-31 16:00] VITALS: BP 133/66; PULSE 73; RESP 14; TEMP 36.5; O2SAT 92
[2021-03-31] MEDS: FUROSEMIDE INJ 40 MG/4 ML VIAL IV PUSH (17:36)
[2021-03-31] MEDS: ENOXAPARIN 40 MG/0.4 ML SYRINGE SUB-Q (17:37)
[2021-03-31] MEDS: LEVALBUTEROL HFA (*SP) 15 GM INHALER 2 PUFF INHALATION (19:26)
[2021-03-31 20:00] VITALS: BP 177/143; PULSE 86; RESP 18; TEMP 36.9; O2SAT 89; O2SAT 92
[2021-03-31] MEDS: HYDROcodone/acetaminophen (*CRX) 7.5-325 MG TABLET 1 TAB PO (20:45)
[2021-03-31 23:43] VITALS: BP 139/71; PULSE 65; RESP 16; TEMP 37.2; O2SAT 95
[2021-04-01] VITALS (10 sets, daily range): BP systolic 114–139; BP diastolic 69–96; PULSE 69–90; RESP 16–22; TEMP 36.5–37.2; O2SAT 87–95
[2021-04-01] MEDS: LEVOTHYROXINE SODIUM 25 MCG TABLET PO (06:43)
[2021-04-01] MEDS: LEVOTHYROXINE SODIUM 112 MCG TABLET PO (06:43)
[2021-04-01 06:54] LABS: Basophils Absolute Auto 0.1 K/mm3 (0.0-0.1); Basophils Percent Auto 0.8 % (0.2-1.2); Hematocrit 44.7 % (42.0-52.0); Hemoglobin 15.3 g/dL (14.0-18.0); Immature Granulocyte Absolute 0.68 K/mm3 (0.00-0.031); Immature Granulocyte Percent A 5.2 % (0-0.5); Lymphocytes Absolute Auto 0.89 K/mm3 (0.9-3.2); Lymphocytes Percent Auto 6.8 % (18.3-44.2); Mean Corpuscular HGB Conc 34.2 g/dl (32-36); Mean Corpuscular Hemoglobin 30.7 pg (26-34); Mean Corpuscular Volume 89.6 fl (80-100); Mean Platelet Volume 9.6 fl (7.4-10.4); Monocytes Absolute Auto 1.2 K/mm3 (0.1-0.6); Monocytes Percent Auto 9.4 % (2.6-8.5); Neutrophils Absolute Auto 10.2 K/mm3 (1.3-6.7); Neutrophils Percent Auto 77.8 % (45.5-73.1); Platelet Count Result 439 k/mm3 (150-375); Red Blood Count 4.99 M/mm3 (4.6-6.20); Red Cell Distribution Width 14.7 % (11.5-14.5); White Blood Count 13.1 K/mm3 (4.5-10.0)
[2021-04-01 07:09] LABS: Alanine Aminotransferase 59 U/L (4-50); Alkaline Phosphatase 154 U/L (38-126); Anion Gap 6 mmol/L (8-16); Aspartate Amino Transferase 40 U/L (17-59); Bilirubin,Total 0.7 mg/dL (0.2-1.3); Blood Urea Nitrogen 44 mg/dL (9-20); CRP 2.8 mg/dL (<1.0); Calcium 9.6 mg/dL (8.4-10.2); Carbon Dioxide 28 mmol/L (22-30); Chloride 102 mmol/L (98-107); Estimated CRCL calculation 56 ml/min; Estimated Glomerular Filt Rate > 60; Glucose 157 mg/dL (65-110); Lactate Dehydrogenase 1422 U/L (313-618); Magnesium 2.3 mg/dL (1.6-2.3); Potassium 4.2 mmol/L (3.4-5.0); Sodium 136 mmol/L (137-145)
[2021-04-01 07:13] LABS: NT Pro B Type Natriuretic Pept 289 pg/mL (5-100)
[2021-04-01 07:18] LABS: D Dimer 0.69 ug/mL (<0.48)
[2021-04-01] MEDS: LEVALBUTEROL HFA (*SP) 15 GM INHALER 2 PUFF INHALATION ×3 (08:02→20:49)
[2021-04-01] MEDS: HYDROcodone/acetaminophen (*CRX) 7.5-325 MG TABLET 1 TAB PO ×2 (08:09→14:35)
[2021-04-01] MEDS: VITAMIN B COMPLEX CAPSULE 1 CAP PO (08:10)
[2021-04-01] MEDS: OMEGA 3 POLYUNSAT FATTY ACIDS 1 GM CAP PO (08:10)
[2021-04-01] MEDS: LORazepam (*CRX) 0.5 MG TABLET PO ×2 (08:10→14:35)
[2021-04-01] MEDS: PRAMIPEXOLE 0.125 MG TABLET 0.375 MG PO ×2 (08:11→17:45)
[2021-04-01] MEDS: BARICITINIB 2 MG TABLET 4 MG PO (08:12)
[2021-04-01] MEDS: FERROUS SULFATE 324 MG TABLET PO (08:13)
[2021-04-01] MEDS: CALCIUM CARBONATE (OSCAL) 500 MG TABLET PO (08:13)
[2021-04-01] MEDS: ASCORBIC ACID 500 MG TABLET 1000 MG PO (08:13)
[2021-04-01] MEDS: DEXAMETHASONE SOD PHOS INJ 4 MG/ML VIAL 6 MG IV PUSH (08:13)
[2021-04-01] MEDS: ATORVASTATIN 20 MG TABLET BY MOUTH (08:13)
[2021-04-01] MEDS: PSYLLIUM POWDER PACKET 1 PACKET BY MOUTH (08:14)
[2021-04-01] MEDS: guaiFENesin 12 HR 600 MG TABCR PO ×2 (08:14→20:53)
[2021-04-01] MEDS: CHOLECALCIFEROL 1,000 UNITS TABLET 2000 UNITS PO (08:14)
[2021-04-01] MEDS: TAMSULOSIN HCL 0.4 MG CAPSULE BY MOUTH (08:14)
[2021-04-01] MEDS: MAGNESIUM OXIDE 400 MG TABLET PO (08:15)
[2021-04-01] MEDS: LANSOPRAZOLE ORAL SUSP 30 MG/10 ML ORAL.SUSP PO ×2 (08:20→17:46)
--- NOTE | 2021-04-01 08:30 | PM.IMPN ---
Progress Note: A&P Assessment and Plan (1) Pneumonia due to COVID-19 virus: Code(s): U07.1 - COVID-19; J12.82 - Pneumonia due to coronavirus disease 2018 Status: Acute Assessment and Plan: Pt tested positive for covid 03/26/21 -pt down to 3LNC. Will start baricitinib -continue decadron, remdesivir, and lovenox -abx have been stopped -continue inhalers and spirometer -add cornet -Check inflammatory markers in the am -CXR yesterday shows stable PNA -pt has had 2 of the mRNA vaccines -continue O2 for sats<90. He would like to try the mask instead of the nasal cannula. -CTA without concern for PE BNP 289 lasix 40mg IV once (2) Pneumonia: Code(s): J18.9 - Pneumonia, unspecified organism Status: Acute Assessment and Plan: as above (3) Acute respiratory failure with hypoxia: Code(s): J96.01 - Acute respiratory failure with hypoxia Status: Acute Assessment and Plan: Due to above -continue o2 for sats >90 (4) HTN (hypertension): Qualifiers: Hypertension type: essential hypertension Qualified Code(s): I10 - Essential (primary) hypertension Code(s): I10 - Essential (primary) hypertension Status: Chronic Assessment and Plan: Last bp 138/69 -continue diltiazem and will do PRN hydralazine (5) Hypothyroidism: Code(s): E03.9 - Hypothyroidism, unspecified Status: Acute Assessment and Plan: Continue levothyroxine -TSH normal 0.69 (6) Chronic pain: Code(s): G89.29 - Other chronic pain Status: Acute Assessment and Plan: He has been on Hydrocodone for > 10 years for his low back pain according to PCP notes -will continue with his home pain medications -monitor for hypoxia (7) Chronic post-traumatic stress 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 combat: Code(s): F43.12 - Post-traumatic stress disorder, chronic Status: Acute Assessment and Plan: continue ativan -patient states he usually does not have to take anything at home because he is not usually locked up in one confined area. 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 He states the medication does help. I understand that we cannot open the window or really walk him around the hospital since he has possible COVID but he is to reach out if he feels this way again. At the very least maybe we can at least open the door for a second or sit with him for moral support during this time. He said his and daughter are helpful in these situations and he can call them during this time, too. -Patient continues to experience difficulties as described above. -Ativan on MAR for help (8) Anxiety: Code(s): F41.9 - Anxiety disorder, unspecified Status: Acute Assessment and Plan: ativan 0.5mg PO Q6hr PRN Probably the root cause of his increased oxygen demand Time Spent With Patient Time with patient: Greater than 35 minutes Subjective Date/time seen: 04/01/21 0830 Interval history: Date/Time: 03/26/21 14:11 Narrative: Pt is a 65 y/o male with a PMH of HTN, chronic pain, BPH, and hypothyroidism who is fully vaccinated with an mRNA vaccine x 2 who presented emergency room on 03/26 for shortness of breath. Pt states his is currently + for COVID after being around her grandkids. He started having similar symptoms on 03/20. He states he has a continuos dry cough and feels SOB with activity. He has noticed he has been having fevers and decreased appetite. He denies CP, nausea, vomiting, dysuria, constipation, diarrhea, new pain,or leg swelling. He has no hx of blood clots. He feels better with the oxygen but continues to have a cough. Date/Time 03/31/21 1245 Patient is sitting up in the chair. Patient stated that he does not have any complaints this time. Patient stated that he is not have any chest pain, nausea, vomiting, abdominal pain, weakness, fatigue. Patient
[2021-04-01] MEDS: BENZONATATE 100 MG CAPSULE 200 MG PO ×2 (12:45→17:44)
[2021-04-01] MEDS: FUROSEMIDE INJ 40 MG/4 ML VIAL IV PUSH (12:45)
[2021-04-01] MEDS: ENOXAPARIN 40 MG/0.4 ML SYRINGE SUB-Q (17:44)
[2021-04-01] MEDS: WATER FOR IRRIGATION, STERILE 1,000 ML BOTTLE 1000 ML (21:27)
[2021-04-02] VITALS (7 sets, daily range): BP systolic 125–143; BP diastolic 57–92; PULSE 73–92; RESP 16–22; TEMP 36.1–37.1; O2SAT 88–94
[2021-04-02] MEDS: LEVOTHYROXINE SODIUM 25 MCG TABLET PO (05:43)
[2021-04-02] MEDS: LEVOTHYROXINE SODIUM 112 MCG TABLET PO (05:43)
[2021-04-02] MEDS: LORazepam (*CRX) 0.5 MG TABLET PO (05:47)
[2021-04-02 08:23] LABS: Basophils Absolute Auto 0.1 K/mm3 (0.0-0.1); Basophils Percent Auto 0.8 % (0.2-1.2); Hematocrit 47.5 % (42.0-52.0); Hemoglobin 16.2 g/dL (14.0-18.0); Immature Granulocyte Absolute 1.25 K/mm3 (0.00-0.031); Immature Granulocyte Percent A 6.7 % (0-0.5); Lymphocytes Absolute Auto 1.03 K/mm3 (0.9-3.2); Lymphocytes Percent Auto 5.6 % (18.3-44.2); Mean Corpuscular HGB Conc 34.1 g/dl (32-36); Mean Corpuscular Hemoglobin 31.1 pg (26-34); Mean Corpuscular Volume 91.2 fl (80-100); Mean Platelet Volume 9.8 fl (7.4-10.4); Monocytes Absolute Auto 1.5 K/mm3 (0.1-0.6); Monocytes Percent Auto 7.9 % (2.6-8.5); Neutrophils Absolute Auto 14.6 K/mm3 (1.3-6.7); Platelet Count Result 473 k/mm3 (150-375); Red Blood Count 5.21 M/mm3 (4.6-6.20); Red Cell Distribution Width 14.8 % (11.5-14.5); White Blood Count 18.5 K/mm3 (4.5-10.0)
[2021-04-02 08:33] LABS: Alanine Aminotransferase 55 U/L (4-50); Albumin Level 4.1 g/dL (3.5-5.1); Alkaline Phosphatase 162 U/L (38-126); Anion Gap 12 mmol/L (8-16); Aspartate Amino Transferase 29 U/L (17-59); Bilirubin,Total 0.8 mg/dL (0.2-1.3); Blood Urea Nitrogen 50 mg/dL (9-20); Calcium 9.5 mg/dL (8.4-10.2); Carbon Dioxide 25 mmol/L (22-30); Chloride 101 mmol/L (98-107); Estimated CRCL calculation 48 ml/min; Estimated Glomerular Filt Rate 55; Glucose 158 mg/dL (65-110); Magnesium 2.7 mg/dL (1.6-2.3); Potassium 4.2 mmol/L (3.4-5.0); Sodium 138 mmol/L (137-145)
[2021-04-02] MEDS: LEVALBUTEROL HFA (*SP) 15 GM INHALER 2 PUFF INHALATION ×3 (08:36→21:06)
[2021-04-02] MEDS: HYDROcodone/acetaminophen (*CRX) 7.5-325 MG TABLET 1 TAB PO ×2 (08:46→18:09)
[2021-04-02] MEDS: PRAMIPEXOLE 0.125 MG TABLET 0.375 MG PO ×2 (08:47→18:11)
[2021-04-02] MEDS: BENZONATATE 100 MG CAPSULE 200 MG PO ×3 (08:47→18:10)
[2021-04-02] MEDS: OMEGA 3 POLYUNSAT FATTY ACIDS 1 GM CAP PO (08:47)
[2021-04-02] MEDS: BARICITINIB 2 MG TABLET 4 MG PO (08:47)
[2021-04-02] MEDS: ATORVASTATIN 20 MG TABLET BY MOUTH (08:48)
[2021-04-02] MEDS: TAMSULOSIN HCL 0.4 MG CAPSULE BY MOUTH (08:48)
[2021-04-02] MEDS: ASCORBIC ACID 500 MG TABLET 1000 MG PO (08:48)
[2021-04-02] MEDS: CHOLECALCIFEROL 1,000 UNITS TABLET 2000 UNITS PO (08:48)
[2021-04-02] MEDS: FERROUS SULFATE 324 MG TABLET PO (08:48)
[2021-04-02] MEDS: CALCIUM CARBONATE (OSCAL) 500 MG TABLET PO (08:48)
[2021-04-02] MEDS: guaiFENesin 12 HR 600 MG TABCR PO ×2 (08:49→20:39)
[2021-04-02] MEDS: VITAMIN B COMPLEX CAPSULE 1 CAP PO (08:49)
--- NOTE | 2021-04-02 09:30 | PM.IMPN ---
Progress Note: A&P Assessment and Plan (1) Pneumonia due to COVID-19 virus: Code(s): U07.1 - COVID-19; J12.82 - Pneumonia due to coronavirus disease 2019 Status: Acute Assessment and Plan: Pt tested positive for covid 03/26/21 -pt down to 12LNC. Will start baricitinib -continue decadron, remdesivir, and lovenox -abx have been stopped -continue inhalers and spirometer -add cornet -trend inflammatory markers -CXR Stable airspace opacities in right lower lung zone and left mid and lower lung zones 04/02/21 -pt has had 2 of the mRNA vaccines -continue O2 for sats<90. -CTA without concern for PE BNP 289 lasix 40mg IV once repeated (2) Pneumonia: Code(s): J18.9 - Pneumonia, unspecified organism Status: Acute Assessment and Plan: as above (3) Acute respiratory failure with hypoxia: Code(s): J96.01 - Acute respiratory failure with hypoxia Status: Acute Assessment and Plan: Due to above -continue o2 for sats >90 (4) HTN (hypertension): Qualifiers: Hypertension type: essential hypertension Qualified Code(s): I10 - Essential (primary) hypertension Code(s): I10 - Essential (primary) hypertension Status: Chronic Assessment and Plan: Last bp 133/79 -continue diltiazem and will do PRN hydralazine (5) Hypothyroidism: Code(s): E03.9 - Hypothyroidism, unspecified Status: Acute Assessment and Plan: Continue levothyroxine -TSH normal 0.69 (6) Chronic pain: Code(s): G89.29 - Other chronic pain Status: Acute Assessment and Plan: He has been on Hydrocodone for > 10 years for his low back pain according to PCP notes -will continue with his home pain medications -monitor for hypoxia (7) Chronic post-traumatic stress 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 combat: Code(s): F43.12 - Post-traumatic stress disorder, chronic Status: Acute Assessment and Plan: continue ativan -patient states he usually does not have to take anything at home because he is not usually locked up in one confined area. 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 He states the medication does help. I understand that we cannot open the window or really walk him around the hospital since he has possible COVID but he is to reach out if he feels this way again. At the very least maybe we can at least open the door for a second or sit with him for moral support during this time. He said his and daughter are helpful in these situations and he can call them during this time, too. -Patient continues to experience difficulties as described above. -Ativan on MAR for help (8) Anxiety: Code(s): F41.9 - Anxiety disorder, unspecified Status: Acute Assessment and Plan: ativan 0.5mg PO Q6hr PRN, increased to 1mg Probably the root cause of his increased oxygen demand Time Spent With Patient Time with patient: Greater than 35 minutes Subjective Date/time seen: 04/02/21 0930 Interval history: Date/Time: 03/26/21 14:11 Narrative: Pt is a 65 y/o male with a PMH of HTN, chronic pain, BPH, and hypothyroidism who is fully vaccinated with an mRNA vaccine x 2 who presented emergency room on 03/26 for shortness of breath. Pt states his is currently + for COVID after being around her grandkids. He started having similar symptoms on 03/20. He states he has a continuos dry cough and feels SOB with activity. He has noticed he has been having fevers and decreased appetite. He denies CP, nausea, vomiting, dysuria, constipation, diarrhea, new pain,or leg swelling. He has no hx of blood clots. He feels better with the oxygen but continues to have a cough. Date/Time 03/31/21 1245 Patient is sitting up in the chair. Patient stated that he does not have any complaints this time. Patient stated that he is not have any chest pain, nausea, vomiting, abdominal pain,
[2021-04-02] MEDS: LORazepam (*CRX) 1 MG TABLET PO ×2 (12:04→18:09)
[2021-04-02] MEDS: ACETAMINOPHEN 325 MG TABLET 650 MG PO (12:04)
[2021-04-02] MEDS: MAGNESIUM OXIDE 400 MG TABLET PO (12:05)
[2021-04-02] MEDS: FUROSEMIDE INJ 40 MG/4 ML VIAL IV PUSH (15:00)
[2021-04-02] MEDS: ENOXAPARIN 40 MG/0.4 ML SYRINGE SUB-Q (18:10)
[2021-04-03] VITALS (8 sets, daily range): BP systolic 116–154; BP diastolic 69–82; PULSE 72–93; RESP 16–24; TEMP 36.3–36.8; O2SAT 88–93
[2021-04-03] MEDS: LEVOTHYROXINE SODIUM 25 MCG TABLET PO (05:32)
[2021-04-03] MEDS: LEVOTHYROXINE SODIUM 112 MCG TABLET PO (05:32)
[2021-04-03 06:17] LABS: Hematocrit 52.2 % (42.0-52.0); Hemoglobin 17.3 g/dL (14.0-18.0); Immature Granulocyte Absolute 1.71 K/mm3 (0.00-0.031); Immature Granulocyte Percent A 6.1 % (0-0.5); Lymphocytes Absolute Auto 1.25 K/mm3 (0.9-3.2); Lymphocytes Percent Auto 4.5 % (18.3-44.2); Mean Corpuscular HGB Conc 33.1 g/dl (32-36); Mean Corpuscular Hemoglobin 31.3 pg (26-34); Mean Corpuscular Volume 94.6 fl (80-100); Mean Platelet Volume 9.6 fl (7.4-10.4); Monocytes Absolute Auto 1.8 K/mm3 (0.1-0.6); Monocytes Percent Auto 6.6 % (2.6-8.5); Neutrophils Absolute Auto 23.1 K/mm3 (1.3-6.7); Neutrophils Percent Auto 82.8 % (45.5-73.1); Platelet Count Result 500 k/mm3 (150-375); Red Blood Count 5.52 M/mm3 (4.6-6.20); Red Cell Distribution Width 14.7 % (11.5-14.5); White Blood Count 27.9 K/mm3 (4.5-10.0)
[2021-04-03 06:19] LABS: Alanine Aminotransferase 53 U/L (4-50); Albumin Level 4.3 g/dL (3.5-5.1); Alkaline Phosphatase 161 U/L (38-126); Anion Gap 9 mmol/L (8-16); Aspartate Amino Transferase 33 U/L (17-59); Bilirubin,Total 1.1 mg/dL (0.2-1.3); Blood Urea Nitrogen 53 mg/dL (9-20); Calcium 9.7 mg/dL (8.4-10.2); Carbon Dioxide 24 mmol/L (22-30); Chloride 101 mmol/L (98-107); Estimated CRCL calculation 48 ml/min; Estimated Glomerular Filt Rate 55; Glucose 168 mg/dL (65-110); Lactate Dehydrogenase 1461 U/L (313-618); Magnesium 2.9 mg/dL (1.6-2.3); Potassium 4.6 mmol/L (3.4-5.0); Sodium 134 mmol/L (137-145)
[2021-04-03 06:31] LABS: D Dimer 0.65 ug/mL (<0.48)
--- NOTE | 2021-04-03 08:00 | PM.IMPN ---
Progress Note: A&P Assessment and Plan (1) Pneumonia due to COVID-19 virus: Code(s): U07.1 - COVID-19; J12.82 - Pneumonia due to coronavirus disease 2019 Status: Acute Assessment and Plan: Pt tested positive for covid 03/26/21 -pt down to 12LNC. Will start baricitinib -continue decadron, remdesivir, and lovenox -abx have been stopped -continue inhalers and spirometer -add cornet -Inflammatory markers Dimer 0.65, LDH 1461, CRP 1.0 -CXR Stable airspace opacities in right lower lung zone and left mid and lower lung zones 04/02/21 -pt has had 2 of the mRNA vaccines -continue O2 for sats<90. -CTA without concern for PE -BNP 289 (2) Pneumonia: Code(s): J18.9 - Pneumonia, unspecified organism Status: Acute Assessment and Plan: as above (3) Acute respiratory failure with hypoxia: Code(s): J96.01 - Acute respiratory failure with hypoxia Status: Acute Assessment and Plan: Due to above -continue o2 for sats >90 (4) HTN (hypertension): Qualifiers: Hypertension type: essential hypertension Qualified Code(s): I10 - Essential (primary) hypertension Code(s): I10 - Essential (primary) hypertension Status: Chronic Assessment and Plan: Last bp 154/82 -continue diltiazem and will do PRN hydralazine (5) Hypothyroidism: Code(s): E03.9 - Hypothyroidism, unspecified Status: Acute Assessment and Plan: Continue levothyroxine -TSH normal 0.69 (6) Chronic pain: Code(s): G89.29 - Other chronic pain Status: Acute Assessment and Plan: He has been on Hydrocodone for > 10 years for his low back pain according to PCP notes -will continue with his home pain medications -monitor for hypoxia (7) Chronic post-traumatic stress 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 combat: Code(s): F43.12 - Post-traumatic stress disorder, chronic Status: Acute Assessment and Plan: continue ativan -patient states he usually does not have to take anything at home because he is not usually locked up in one confined area. 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 He states the medication does help. I understand that we cannot open the window or really walk him around the hospital since he has possible COVID but he is to reach out if he feels this way again. At the very least maybe we can at least open the door for a second or sit with him for moral support during this time. He said his and daughter are helpful in these situations and he can call them during this time, too. -Patient continues to experience difficulties as described above. -Ativan on JUN for help (8) Anxiety: Code(s): F41.9 - Anxiety disorder, unspecified Status: Acute Assessment and Plan: Ativan 0.5mg PO Q6hr PRN, increased to 1mg, does not seem to be working One time dose of Ativan 0.5mg IV once Probably the root cause of his increased oxygen demand Oxygen demand seems to be getting better with the increase of Ativan (9) Delirium: Code(s): R41.0 - Disorientation, unspecified Status: Acute Assessment and Plan: Hallucinating and seeing things One dose 0.5mg IV ativan Probably related to lack of rest over the last 2 days Time Spent With Patient Time with patient: Greater than 35 minutes Subjective Date/time seen: 04/03/21 0800 Interval history: Date/Time: 03/26/21 14:11 Narrative: Pt is a 65 y/o male with a PMH of HTN, chronic pain, BPH, and hypothyroidism who is fully vaccinated with an mRNA vaccine x 2 who presented emergency room on 03/26 for shortness of breath. Pt states his is currently + for COVID after being around her grandkids. He started having similar symptoms on 03/20. He states he has a continuos dry cough and feels SOB with activity. He has noticed he has been having fevers and decreased appetite. He denies CP, nause
[2021-04-03] MEDS: LORazepam (*CRX) 1 MG TABLET PO ×3 (08:36→23:21)
[2021-04-03] MEDS: VITAMIN B COMPLEX CAPSULE 1 CAP PO (08:40)
[2021-04-03] MEDS: CALCIUM CARBONATE (OSCAL) 500 MG TABLET PO (08:40)
[2021-04-03] MEDS: ASCORBIC ACID 500 MG TABLET 1000 MG PO (08:40)
[2021-04-03] MEDS: OMEGA 3 POLYUNSAT FATTY ACIDS 1 GM CAP PO (08:40)
[2021-04-03] MEDS: CHOLECALCIFEROL 1,000 UNITS TABLET 2000 UNITS PO (08:40)
[2021-04-03] MEDS: TAMSULOSIN HCL 0.4 MG CAPSULE BY MOUTH (08:40)
[2021-04-03] MEDS: PRAMIPEXOLE 0.125 MG TABLET 0.375 MG PO ×2 (08:40→16:49)
[2021-04-03] MEDS: FERROUS SULFATE 324 MG TABLET PO (08:40)
[2021-04-03] MEDS: MAGNESIUM OXIDE 400 MG TABLET PO (08:40)
[2021-04-03] MEDS: guaiFENesin 12 HR 600 MG TABCR PO ×2 (08:41→21:43)
[2021-04-03] MEDS: ATORVASTATIN 20 MG TABLET BY MOUTH (08:41)
[2021-04-03] MEDS: PSYLLIUM POWDER PACKET 1 PACKET BY MOUTH (08:41)
[2021-04-03] MEDS: BENZONATATE 100 MG CAPSULE 200 MG PO ×3 (08:41→16:49)
[2021-04-03] MEDS: BARICITINIB 2 MG TABLET 4 MG PO (08:41)
[2021-04-03] MEDS: LANSOPRAZOLE ORAL SUSP 30 MG/10 ML ORAL.SUSP PO ×2 (08:49→16:52)
[2021-04-03] MEDS: LEVALBUTEROL HFA (*SP) 15 GM INHALER 2 PUFF INHALATION ×3 (08:55→21:55)
[2021-04-03 14:01] LABS: Hematocrit 48.7 % (42.0-52.0); Hemoglobin 16.6 g/dL (14.0-18.0); Mean Corpuscular HGB Conc 34.1 g/dl (32-36); Mean Platelet Volume 9.6 fl (7.4-10.4); Platelet Count Result 515 k/mm3 (150-375); Red Blood Count 5.35 M/mm3 (4.6-6.20); Red Cell Distribution Width 14.6 % (11.5-14.5); White Blood Count 23.8 K/mm3 (4.5-10.0)
[2021-04-03] MEDS: ACETAMINOPHEN 325 MG TABLET 650 MG PO (14:10)
[2021-04-03] MEDS: BACLOFEN 5 MG TABLET PO (14:21)
[2021-04-03] MEDS: BENZOCAINE 20% DENTAL GEL 9 GM TUBE 1 APPLIC BY MOUTH (16:50)
[2021-04-03] MEDS: ENOXAPARIN 40 MG/0.4 ML SYRINGE SUB-Q (16:53)
--- NOTE | 2021-04-03 17:00 | PCNWS ---
Weekly nutritional screen. Patient is tolerating regular diet with reported intake of 25%, 50% x2, and 100%. Attempted to contact pt via phone x3, no answer. Spoke with nursing via phone who reports that pt's significant other has been brining him food from outside of the hospital. No weight loss reported. RDN added orders for ensure compact BID providing an additional 220kcal and 9g of protein to increase caloric intake. Nursing has been made known of this and agrees to encourage intake. Agree with current diet orders. Will continue to follow and monitor labs, medication, wt, and intake every 7 days.
[2021-04-03] MEDS: MELATONIN 5 MG TABLET PO (21:43)
[2021-04-04] VITALS (11 sets, daily range): BP systolic 128–158; BP diastolic 71–92; PULSE 56–96; RESP 14–24; TEMP 36.1–36.7; O2SAT 83–95
[2021-04-04] MEDS: BACLOFEN 5 MG TABLET PO (03:06)
--- NOTE | 2021-04-04 03:40 | PC.NURSE ---
- At 0130, pt found out of room in hallway. Pt assist back to his room,respirations labored, 02sats 80% on room air. Oxygen put back on, encouraged to stay in room and keep oxygen in nose, verbalize understanding . Will continue to monitor.
--- NOTE | 2021-04-04 03:53 | PC.NURSE ---
0145 Place call to supervisor clam bed for sitter, no sitter available .
[2021-04-04] MEDS: LEVOTHYROXINE SODIUM 25 MCG TABLET PO (05:29)
[2021-04-04] MEDS: LEVOTHYROXINE SODIUM 112 MCG TABLET PO (05:29)
[2021-04-04] MEDS: LORazepam (*CRX) 1 MG TABLET PO (05:29)
--- NOTE | 2021-04-04 05:53 | PC.NURSE ---
0548 Pt sitting on his ice chest in the [address], states he's going home. Pt sob on exertion, encouraged to go back to his room to put on oxygen. Pt assist back to room 02sats 71% on room air. Will continue to monitor.
[2021-04-04 07:21] LABS: Basophils Absolute Auto 0.2 K/mm3 (0.0-0.1); Basophils Percent Auto 0.6 % (0.2-1.2); Hematocrit 51.4 % (42.0-52.0); Hemoglobin 17.5 g/dL (14.0-18.0); Immature Granulocyte Absolute 1.59 K/mm3 (0.00-0.031); Immature Granulocyte Percent A 5.7 % (0-0.5); Lymphocytes Absolute Auto 1.18 K/mm3 (0.9-3.2); Lymphocytes Percent Auto 4.3 % (18.3-44.2); Mean Corpuscular Hemoglobin 31.4 pg (26-34); Mean Corpuscular Volume 92.1 fl (80-100); Mean Platelet Volume 9.7 fl (7.4-10.4); Monocytes Percent Auto 7.1 % (2.6-8.5); Neutrophils Absolute Auto 22.8 K/mm3 (1.3-6.7); Neutrophils Percent Auto 82.3 % (45.5-73.1); Platelet Count Result 544 k/mm3 (150-375); Red Blood Count 5.58 M/mm3 (4.6-6.20); Red Cell Distribution Width 14.6 % (11.5-14.5); White Blood Count 27.7 K/mm3 (4.5-10.0)
[2021-04-04 07:31] LABS: Alanine Aminotransferase 53 U/L (4-50); Albumin Level 4.4 g/dL (3.5-5.1); Alkaline Phosphatase 164 U/L (38-126); Anion Gap 10 mmol/L (8-16); Aspartate Amino Transferase 30 U/L (17-59); Bilirubin,Total 1.3 mg/dL (0.2-1.3); Blood Urea Nitrogen 56 mg/dL (9-20); Calcium 9.6 mg/dL (8.4-10.2); Carbon Dioxide 29 mmol/L (22-30); Chloride 100 mmol/L (98-107); Estimated CRCL calculation 45 ml/min; Estimated Glomerular Filt Rate 51; Glucose 152 mg/dL (65-110); Magnesium 3.1 mg/dL (1.6-2.3); Potassium 4.1 mmol/L (3.4-5.0); Sodium 139 mmol/L (137-145)
--- NOTE | 2021-04-04 07:40 | PM.IMPN ---
Progress Note: A&P Assessment and Plan (1) Acute metabolic encephalopathy: Code(s): G93.41 - Metabolic encephalopathy Status: Acute Assessment and Plan: Could be from delirium or COVID Also could be related to hypoxia since he will not leave his oxygen on Ativan ordered Will try 1mg of morphine once is coming to sit with patient (2) Pneumonia due to COVID-19 virus: Code(s): U07.1 - COVID-19; J12.82 - Pneumonia due to coronavirus disease 2018 Status: Acute Assessment and Plan: Pt tested positive for covid 03/26/21 -Oxygenation continues at 15L high flow, sating about 89-90% -baricitinib -continue decadron, remdesivir, and lovenox, extend for five more days -Add azithromycin -continue inhalers and spirometer -add cornet -Inflammatory markers Dimer 0.65, LDH 1461, CRP 1.0 04/03/21 -CXR Stable bilateral airspace disease, consistent with pneumonia. 04/04/21 -pt has had 2 of the mRNA vaccines -continue O2 for sats>90. -CTA without concern for PE -BNP 289 (3) Pneumonia: Code(s): J18.9 - Pneumonia, unspecified organism Status: Acute Assessment and Plan: as above (4) Acute respiratory failure with hypoxia: Code(s): J96.01 - Acute respiratory failure with hypoxia Status: Acute Assessment and Plan: Due to above -continue o2 for sats >90 (5) HTN (hypertension): Qualifiers: Hypertension type: essential hypertension Qualified Code(s): I10 - Essential (primary) hypertension Code(s): I10 - Essential (primary) hypertension Status: Chronic Assessment and Plan: Last bp 136/87 -continue diltiazem and will do PRN hydralazine (6) Hypothyroidism: Code(s): E03.9 - Hypothyroidism, unspecified Status: Acute Assessment and Plan: Continue levothyroxine -TSH normal 0.69 (7) Chronic pain: Code(s): G89.29 - Other chronic pain Status: Acute Assessment and Plan: He has been on Hydrocodone for > 10 years for his low back pain according to PCP notes -will continue with his home pain medications -monitor for hypoxia (8) Chronic post-traumatic stress 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 combat: Code(s): F43.12 - Post-traumatic stress disorder, chronic Status: Acute Assessment and Plan: continue ativan -patient states he usually does not have to take anything at home because he is not usually locked up in one confined area. 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 He states the medication does help. I understand that we cannot open the window or really walk him around the hospital since he has possible COVID but he is to reach out if he feels this way again. At the very least maybe we can at least open the door for a second or sit with him for moral support during this time. He said his and daughter are helpful in these situations and he can call them during this time, too. -Patient continues to experience difficulties as described above. -Ativan on JUN for help, does not seem to be working at this time -Try 1mg of morphine -thinks this could be exacerbated by the lack of sleep and delirium (9) Anxiety: Code(s): F41.9 - Anxiety disorder, unspecified Status: Acute Assessment and Plan: Ativan 0.5mg PO Q6hr PRN, increased to 1mg, does not seem to be working One time dose of Ativan 0.5mg IV once, not given consider another one time dose Probably the root cause of his increased oxygen demand Oxygen demand seems to be getting better with the increase of Ativan is coming to sit with the patient (10) Delirium: Code(s): R41.0 - Disorientation, unspecified Status: Acute Assessment and Plan: Hallucinating and seeing things One dose 0.5mg IV ativan, not given Probably related to lack of rest over the last 2 days (11) Leukocytosis:
[2021-04-04] MEDS: MORPHINE SULFATE (*CRX) 2 MG/ML INJ 1 MG IV PUSH (08:34)
[2021-04-04] MEDS: PRAMIPEXOLE 0.125 MG TABLET 0.375 MG PO ×2 (08:36→17:45)
[2021-04-04] MEDS: OMEGA 3 POLYUNSAT FATTY ACIDS 1 GM CAP PO (08:36)
[2021-04-04] MEDS: BENZONATATE 100 MG CAPSULE 200 MG PO ×3 (08:36→17:44)
[2021-04-04] MEDS: ASCORBIC ACID 500 MG TABLET 1000 MG PO (08:37)
[2021-04-04] MEDS: guaiFENesin 12 HR 600 MG TABCR PO ×2 (08:37→21:19)
[2021-04-04] MEDS: TAMSULOSIN HCL 0.4 MG CAPSULE BY MOUTH (08:37)
[2021-04-04] MEDS: CHOLECALCIFEROL 1,000 UNITS TABLET 2000 UNITS PO (08:37)
[2021-04-04] MEDS: FERROUS SULFATE 324 MG TABLET PO (08:37)
[2021-04-04] MEDS: VITAMIN B COMPLEX CAPSULE 1 CAP PO (08:38)
[2021-04-04] MEDS: ATORVASTATIN 20 MG TABLET BY MOUTH (08:38)
[2021-04-04] MEDS: MAGNESIUM OXIDE 400 MG TABLET PO (08:38)
[2021-04-04] MEDS: CALCIUM CARBONATE (OSCAL) 500 MG TABLET PO (08:38)
[2021-04-04] MEDS: BARICITINIB 2 MG TABLET 4 MG PO (08:38)
[2021-04-04] MEDS: PSYLLIUM POWDER PACKET 1 PACKET BY MOUTH (08:38)
[2021-04-04] MEDS: LANSOPRAZOLE ORAL SUSP 30 MG/10 ML ORAL.SUSP PO (08:43)
[2021-04-04] MEDS: LEVALBUTEROL HFA (*SP) 15 GM INHALER 2 PUFF INHALATION ×3 (08:48→20:00)
[2021-04-04 10:02] LABS: INR 1.1
[2021-04-04] MEDS: REMDESIVIR 100 MG/NS 250 ML 100 MG/250 ML BAG 250 MG IVPB (12:22)
[2021-04-04] MEDS: ENOXAPARIN 40 MG/0.4 ML SYRINGE SUB-Q (17:46)
[2021-04-04] MEDS: MELATONIN 5 MG TABLET PO (21:19)
[2021-04-05] VITALS (10 sets, daily range): BP systolic 131–164; BP diastolic 71–91; PULSE 61–110; RESP 16–22; TEMP 36.2–36.8; O2SAT 87–94
[2021-04-05 06:42] LABS: Basophils Absolute Auto 0.1 K/mm3 (0.0-0.1); Basophils Percent Auto 0.4 % (0.2-1.2); Hematocrit 46.9 % (42.0-52.0); Hemoglobin 15.9 g/dL (14.0-18.0); Immature Granulocyte Absolute 0.95 K/mm3 (0.00-0.031); Lymphocytes Absolute Auto 0.74 K/mm3 (0.9-3.2); Lymphocytes Percent Auto 3.2 % (18.3-44.2); Mean Corpuscular HGB Conc 33.9 g/dl (32-36); Mean Corpuscular Hemoglobin 30.9 pg (26-34); Mean Corpuscular Volume 91.2 fl (80-100); Monocytes Absolute Auto 1.3 K/mm3 (0.1-0.6); Monocytes Percent Auto 5.5 % (2.6-8.5); Neutrophils Absolute Auto 20.4 K/mm3 (1.3-6.7); Neutrophils Percent Auto 86.9 % (45.5-73.1); Platelet Count Result 463 k/mm3 (150-375); Red Blood Count 5.14 M/mm3 (4.6-6.20); Red Cell Distribution Width 14.4 % (11.5-14.5); White Blood Count 23.5 K/mm3 (4.5-10.0)
[2021-04-05 07:04] LABS: INR 1.2; Prothrombin Time 14.6 Seconds (11.1-14.7)
[2021-04-05 07:07] LABS: D Dimer 0.54 ug/mL (<0.48)
[2021-04-05 07:09] LABS: Alanine Aminotransferase 42 U/L (4-50); Alkaline Phosphatase 126 U/L (38-126); Anion Gap 9 mmol/L (8-16); Aspartate Amino Transferase 28 U/L (17-59); Blood Urea Nitrogen 49 mg/dL (9-20); CRP 1.1 mg/dL (<1.0); Calcium 9.1 mg/dL (8.4-10.2); Carbon Dioxide 27 mmol/L (22-30); Chloride 101 mmol/L (98-107); Estimated CRCL calculation 52 ml/min; Estimated Glomerular Filt Rate 60; Glucose 211 mg/dL (65-110); Lactate Dehydrogenase 1141 U/L (313-618); Magnesium 2.9 mg/dL (1.6-2.3); Potassium 4.1 mmol/L (3.4-5.0); Sodium 137 mmol/L (137-145)
[2021-04-05] MEDS: LEVOTHYROXINE SODIUM 112 MCG TABLET PO (07:12)
[2021-04-05] MEDS: LEVOTHYROXINE SODIUM 25 MCG TABLET PO (07:12)
[2021-04-05 07:56] LABS: Hepatitis B Surface Antigen Negative (Negative)
[2021-04-05 08:02] LABS: HAV RESULT Negative (Negative); Hepatitis B Core IgM Result Negative (Negative)
[2021-04-05 08:13] LABS: Hepatitis C Virus Antibody Negative (Negative)
[2021-04-05] MEDS: LEVALBUTEROL HFA (*SP) 15 GM INHALER 2 PUFF INHALATION ×3 (09:44→21:45)
[2021-04-05] MEDS: PRAMIPEXOLE 0.125 MG TABLET 0.375 MG PO ×2 (10:31→19:01)
[2021-04-05] MEDS: LANSOPRAZOLE ORAL SUSP 30 MG/10 ML ORAL.SUSP PO ×2 (10:31→18:59)
[2021-04-05] MEDS: CALCIUM CARBONATE (OSCAL) 500 MG TABLET PO (10:32)
[2021-04-05] MEDS: ATORVASTATIN 20 MG TABLET BY MOUTH (10:32)
[2021-04-05] MEDS: MAGNESIUM OXIDE 400 MG TABLET PO (10:32)
[2021-04-05] MEDS: CHOLECALCIFEROL 1,000 UNITS TABLET 2000 UNITS PO (10:32)
[2021-04-05] MEDS: TAMSULOSIN HCL 0.4 MG CAPSULE BY MOUTH (10:32)
[2021-04-05] MEDS: BARICITINIB 2 MG TABLET 4 MG PO (10:32)
[2021-04-05] MEDS: ASCORBIC ACID 500 MG TABLET 1000 MG PO (10:32)
[2021-04-05] MEDS: BACLOFEN 5 MG TABLET PO (10:32)
[2021-04-05] MEDS: FERROUS SULFATE 324 MG TABLET PO (10:32)
[2021-04-05] MEDS: PSYLLIUM POWDER PACKET 1 PACKET BY MOUTH (10:33)
[2021-04-05] MEDS: BENZONATATE 100 MG CAPSULE 200 MG PO ×3 (10:33→19:01)
[2021-04-05] MEDS: VITAMIN B COMPLEX CAPSULE 1 CAP PO (10:33)
[2021-04-05] MEDS: guaiFENesin 12 HR 600 MG TABCR PO ×2 (10:33→22:54)
[2021-04-05] MEDS: OMEGA 3 POLYUNSAT FATTY ACIDS 1 GM CAP PO (10:33)
[2021-04-05] MEDS: REMDESIVIR 100 MG/NS 250 ML 100 MG/250 ML BAG 250 MG IVPB (10:34)
[2021-04-05] MEDS: HYDROcodone/acetaminophen (*CRX) 7.5-325 MG TABLET 1 TAB PO (13:37)
--- NOTE | 2021-04-05 17:33 | PM.IMPN ---
Progress Note: A&P Assessment and Plan (1) Acute metabolic encephalopathy: Code(s): G93.41 - Metabolic encephalopathy Status: Acute Assessment and Plan: Resolved on my exam - states that could be from the morphine or the lorazepam and does not want any further medications needed unless absolutely necessary. -baclofen will be could discontinued (2) Pneumonia due to COVID-19 virus: Code(s): U07.1 - COVID-19; J12.82 - Pneumonia due to coronavirus disease 2018 Status: Acute Assessment and Plan: Pt tested positive for covid 03/26/21 -Oxygenation continues at 15L high flow, sating about 89-90% -continue decadron, remdesivir, and lovenox, and baricitinib -due to leukocytosis, will do doxycycline and ceftriaxone antibiotics for possible secondary pneumonia -continue inhalers and spirometer -CXR Stable bilateral airspace disease, consistent with pneumonia. 04/04/21 -pt has had 2 of the mRNA vaccines -continue O2 for sats>90. -CTA without concern for PE (3) Pneumonia: Code(s): J18.9 - Pneumonia, unspecified organism Status: Acute Assessment and Plan: as above (4) Acute respiratory failure with hypoxia: Code(s): J96.01 - Acute respiratory failure with hypoxia Status: Acute Assessment and Plan: Due to above -continue o2 for sats >90 (5) HTN (hypertension): Qualifiers: Hypertension type: essential hypertension Qualified Code(s): I10 - Essential (primary) hypertension Code(s): I10 - Essential (primary) hypertension Status: Chronic Assessment and Plan: Last bp 144/81 -continue diltiazem (6) Hypothyroidism: Code(s): E03.9 - Hypothyroidism, unspecified Status: Acute Assessment and Plan: Continue levothyroxine -TSH normal (7) Chronic pain: Code(s): G89.29 - Other chronic pain Status: Acute Assessment and Plan: He has been on Hydrocodone for > 10 years for his low back pain according to PCP notes -will continue with his home pain medications -monitor for hypoxia (8) Chronic post-traumatic stress 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 combat: Code(s): F43.12 - Post-traumatic stress disorder, chronic Status: Acute Assessment and Plan: continue ativan p.r.n. -patient states he usually does not have to take anything at home because he is not usually locked up in one confined area. 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 He states the medication does help. I understand that we cannot open the window or really walk him around the hospital since he has possible COVID but he is to reach out if he feels this way again. At the very least maybe we can at least open the door for a second or sit with him for moral support during this time. He said his and daughter are helpful in these situations and he can call them during this time, too. - at bedside which is helping (9) Anxiety: Code(s): F41.9 - Anxiety disorder, unspecified Status: Acute Assessment and Plan: Improved (10) Delirium: Code(s): R41.0 - Disorientation, unspecified Status: Acute Assessment and Plan: Was Hallucinating and seeing things -stop baclofen. [facility] [place] [facility] delirium - at bedside, hoping this will help (11) Leukocytosis: Code(s): D72.829 - Elevated white blood cell count, unspecified Status: Acute Assessment and Plan: Leukocytosis noted after several days of IV steroids -started on ceftriaxone and doxycycline for possible secondary bacterial pneumonia -patient has been afebrile -no signs of meningitis, urinary tract infection, or abdominal infection -monitor (12) Transaminitis: Code(s): R74.01 - Elevation of levels of liver transaminase levels Status: Acute Assessment and Plan: Likely due to COVI
[2021-04-05] MEDS: ENOXAPARIN 40 MG/0.4 ML SYRINGE SUB-Q (19:00)
[2021-04-05] MEDS: DOXYCYCLINE IV 100 MG in SODIUM CHLORIDE 0.9% IV 100 ML IVPB (19:00)
[2021-04-05] MEDS: MELATONIN 5 MG TABLET PO (22:54)
[2021-04-06] VITALS (7 sets, daily range): BP systolic 126–160; BP diastolic 54–92; PULSE 66–100; RESP 16–22; TEMP 36.4–37.4; O2SAT 90–96
[2021-04-06] MEDS: LORazepam (*CRX) 1 MG TABLET PO (01:31)
[2021-04-06] MEDS: LEVALBUTEROL HFA (*SP) 15 GM INHALER 2 PUFF INHALATION ×3 (02:41→20:00)
[2021-04-06] MEDS: ACETAMINOPHEN 325 MG TABLET 650 MG PO (06:29)
[2021-04-06] MEDS: DOXYCYCLINE IV 100 MG in SODIUM CHLORIDE 0.9% IV 100 ML IVPB ×2 (06:30→18:01)
[2021-04-06] MEDS: LEVOTHYROXINE SODIUM 25 MCG TABLET PO (06:30)
[2021-04-06] MEDS: LEVOTHYROXINE SODIUM 112 MCG TABLET PO (06:30)
[2021-04-06 06:49] LABS: Basophils Absolute Auto 0.1 K/mm3 (0.0-0.1); Basophils Percent Auto 0.5 % (0.2-1.2); Hematocrit 49.7 % (42.0-52.0); Hemoglobin 16.7 g/dL (14.0-18.0); Immature Granulocyte Absolute 0.78 K/mm3 (0.00-0.031); Immature Granulocyte Percent A 3.3 % (0-0.5); Lymphocytes Absolute Auto 0.56 K/mm3 (0.9-3.2); Lymphocytes Percent Auto 2.4 % (18.3-44.2); Mean Corpuscular HGB Conc 33.6 g/dl (32-36); Mean Corpuscular Hemoglobin 31.1 pg (26-34); Mean Corpuscular Volume 92.6 fl (80-100); Mean Platelet Volume 9.8 fl (7.4-10.4); Monocytes Absolute Auto 1.4 K/mm3 (0.1-0.6); Monocytes Percent Auto 5.9 % (2.6-8.5); Neutrophils Absolute Auto 20.7 K/mm3 (1.3-6.7); Neutrophils Percent Auto 87.9 % (45.5-73.1); Platelet Count Result 474 k/mm3 (150-375); Red Blood Count 5.37 M/mm3 (4.6-6.20); Red Cell Distribution Width 14.2 % (11.5-14.5); White Blood Count 23.5 K/mm3 (4.5-10.0)
[2021-04-06 06:50] LABS: Alanine Aminotransferase 42 U/L (4-50); Alkaline Phosphatase 133 U/L (38-126); Anion Gap 7 mmol/L (8-16); Aspartate Amino Transferase 23 U/L (17-59); Bilirubin,Total 0.9 mg/dL (0.2-1.3); Blood Urea Nitrogen 44 mg/dL (9-20); Calcium 9.3 mg/dL (8.4-10.2); Carbon Dioxide 25 mmol/L (22-30); Chloride 103 mmol/L (98-107); Estimated CRCL calculation 56 ml/min; Estimated Glomerular Filt Rate > 60; Glucose 167 mg/dL (65-110); Potassium 4.7 mmol/L (3.4-5.0); Sodium 135 mmol/L (137-145)
--- NOTE | 2021-04-06 08:24 | PCRCNOTE ---
Unable to obtain ABG X2. Patient is very anxious and physically unable to hold still to obtain specimen. RN notified.
[2021-04-06] MEDS: HYDROcodone/acetaminophen (*CRX) 7.5-325 MG TABLET 1 TAB PO ×3 (08:27→21:15)
[2021-04-06] MEDS: BENZONATATE 100 MG CAPSULE 200 MG PO ×2 (08:34→18:04)
[2021-04-06] MEDS: CALCIUM CARBONATE (OSCAL) 500 MG TABLET PO (08:34)
[2021-04-06] MEDS: guaiFENesin 12 HR 600 MG TABCR PO ×2 (08:34→21:15)
[2021-04-06] MEDS: CHOLECALCIFEROL 1,000 UNITS TABLET 2000 UNITS PO (08:34)
[2021-04-06] MEDS: FERROUS SULFATE 324 MG TABLET PO (08:34)
[2021-04-06] MEDS: OMEGA 3 POLYUNSAT FATTY ACIDS 1 GM CAP PO (08:34)
[2021-04-06] MEDS: MAGNESIUM OXIDE 400 MG TABLET PO (08:35)
[2021-04-06] MEDS: ASCORBIC ACID 500 MG TABLET 1000 MG PO (08:35)
[2021-04-06] MEDS: VITAMIN B COMPLEX CAPSULE 1 CAP PO (08:35)
[2021-04-06] MEDS: PRAMIPEXOLE 0.125 MG TABLET 0.375 MG PO ×2 (08:36→18:04)
[2021-04-06] MEDS: LANSOPRAZOLE ORAL SUSP 30 MG/10 ML ORAL.SUSP PO ×2 (08:36→18:01)
[2021-04-06] MEDS: TAMSULOSIN HCL 0.4 MG CAPSULE BY MOUTH (08:36)
[2021-04-06] MEDS: BARICITINIB 2 MG TABLET 4 MG PO (08:36)
[2021-04-06] MEDS: ATORVASTATIN 20 MG TABLET BY MOUTH (08:36)
[2021-04-06 10:15] LABS: Hemoglobin A1C 6.5 % (<5.7)
[2021-04-06 10:18] LABS: Alveolar/Arterial O2 Gradient 593.2 mmHg; Base Excess ABG 1.1 mEq/l (+/-2.0); HCO3 ABG 24.9 mEq/l (22.0-26.0); Oxygen Saturation ABG 96.5 % (95.0-100.0); PCO2 ABG 37.5 mmHg (35.0-45.0); PO2 ABG 82.3 mmHg (80.0-100.0); Total Hemoglobin 17.5 g/dL (12.0-18.0)
[2021-04-06 10:19] LABS: Oxygen Content ABG 23.5 %vol (16.0-22.0); Oxyhemoglobin 95.6 % THb (90.0-100.0)
[2021-04-06 10:20] LABS: Methemoglobin ABG 0.1 %THb (0-1.5); Reduced Hemoglobin 4.3 %THb (0-5.0)
[2021-04-06 10:21] LABS: Device NON-REBREATHER MASK; Fractional Inspired Oxygen 100 %; Modified Allen's Test Pass; PO2 FiO2 Ratio Arterial Blood 0.82 %; Site Drawn RIGHT RADIAL
[2021-04-06] MEDS: REMDESIVIR 100 MG/NS 250 ML 100 MG/250 ML BAG 250 MG IVPB (10:50)
[2021-04-06] MEDS: ENOXAPARIN 40 MG/0.4 ML SYRINGE SUB-Q (18:05)
[2021-04-06 19:01] LABS: Add Urine Microscopic? YES; Appearance Urine Clear (Clear); Bilirubin Urine Negative (Negative); Blood Urine Negative (Negative); Color Urine Yellow (Yellow); Glucose Urine UA 2+ mg/dL (Negative); Ketones Urine Negative (Negative); Leukocyte Esterase Ur Negative LEU/UL (Negative); Mucus Urine Rare /lpf; Nitrate Urine Negative (Negative); Protein Urine 1+ mg/dL (Negative); RBC Urine 0-2 /hpf (0-2); Urobilinogen Urine Negative mg/dL (<2.0); WBC Urine 0-3 /hpf
--- NOTE | 2021-04-06 19:04 | PM.IMPN ---
Progress Note: A&P Assessment and Plan (1) Acute metabolic encephalopathy: Code(s): G93.41 - Metabolic encephalopathy Status: Acute Assessment and Plan: Resolved on my exam - states that could be from the morphine or the lorazepam and does not want any further medications needed unless absolutely necessary. -baclofen has been discontinued (2) Pneumonia due to COVID-19 virus: Code(s): U07.1 - COVID-19; J12.82 - Pneumonia due to coronavirus disease 2019 Status: Acute Assessment and Plan: Pt tested positive for covid 03/26/21 -Oxygenation continues at 15L high flow and satting okay for now. ABG this am looked good. -continue decadron, remdesivir, and lovenox, and baricitinib -due to leukocytosis, doxycycline and ceftriaxone were added for possible secondary bacterial pneumonia -continue inhalers and spirometer -CXR Stable bilateral airspace disease, consistent with pneumonia. 04/04/21 -pt has had 2 of the mRNA vaccines -continue O2 for sats>90. -CTA without concern for PE (3) Pneumonia: Code(s): J18.9 - Pneumonia, unspecified organism Status: Acute Assessment and Plan: as above (4) Acute respiratory failure with hypoxia: Code(s): J96.01 - Acute respiratory failure with hypoxia Status: Acute Assessment and Plan: Due to above -continue o2 for sats >90 (5) HTN (hypertension): Qualifiers: Hypertension type: essential hypertension Qualified Code(s): I10 - Essential (primary) hypertension Code(s): I10 - Essential (primary) hypertension Status: Chronic Assessment and Plan: Last bp 149/74 -continue diltiazem (6) Hypothyroidism: Code(s): E03.9 - Hypothyroidism, unspecified Status: Acute Assessment and Plan: Continue levothyroxine -TSH normal (7) Chronic pain: Code(s): G89.29 - Other chronic pain Status: Acute Assessment and Plan: He has been on Hydrocodone for > 10 years for his low back pain according to PCP notes -will continue with his home pain medications. He says this needs to be scheduled. I have changed that for him. -monitor for hypoxia (8) Chronic post-traumatic stress 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 combat: Code(s): F43.12 - Post-traumatic stress disorder, chronic Status: Acute Assessment and Plan: continue ativan p.r.n. -patient states he usually does not have to take anything at home because he is not usually locked up in one confined area. 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 He states the medication does help. I understand that we cannot open the window or really walk him around the hospital since he has possible COVID but he is to reach out if he feels this way again. At the very least maybe we can at least open the door for a second or sit with him for moral support during this time. He said his and daughter are helpful in these situations and he can call them during this time, too. - at bedside which is helping (9) Anxiety: Code(s): F41.9 - Anxiety disorder, unspecified Status: Acute Assessment and Plan: Improved (10) Delirium: Code(s): R41.0 - Disorientation, unspecified Status: Acute Assessment and Plan: Was Hallucinating and seeing things. now resolved. -stop baclofen. Continue Ativan and [place] [facility] delirium - at bedside, hoping this will help (11) Leukocytosis: Code(s): D72.829 - Elevated white blood cell count, unspecified Status: Acute Assessment and Plan: Leukocytosis noted after several days of IV steroids -started on ceftriaxone and doxycycline for possible secondary bacterial pneumonia -patient has been afebrile -no signs of meningitis, urinary tract infection, or abdominal infection -monitor (12) Transaminitis: Code(s): R74.01 - Elevation of l
[2021-04-06 19:07] LABS: Specific Grav Ur 1.036 (1.001-1.035)
[2021-04-06] MEDS: MELATONIN 5 MG TABLET PO (21:15)
[2021-04-07] VITALS (15 sets, daily range): BP systolic 131–161; BP diastolic 77–88; PULSE 72–94; RESP 14–20; TEMP 36.4–36.8; O2SAT 90–100
[2021-04-07] MEDS: DOXYCYCLINE IV 100 MG in SODIUM CHLORIDE 0.9% IV 100 ML IVPB (05:32)
[2021-04-07] MEDS: LEVOTHYROXINE SODIUM 112 MCG TABLET PO (05:32)
[2021-04-07] MEDS: LEVOTHYROXINE SODIUM 25 MCG TABLET PO (05:32)
[2021-04-07 06:53] LABS: INR 1.1; Prothrombin Time 14.5 Seconds (11.1-14.7)
[2021-04-07 06:56] LABS: Basophils Absolute Auto 0.1 K/mm3 (0.0-0.1); Basophils Percent Auto 0.2 % (0.2-1.2); Hematocrit 48.3 % (42.0-52.0); Hemoglobin 16.4 g/dL (14.0-18.0); Immature Granulocyte Absolute 0.37 K/mm3 (0.00-0.031); Immature Granulocyte Percent A 1.8 % (0-0.5); Lymphocytes Absolute Auto 0.51 K/mm3 (0.9-3.2); Lymphocytes Percent Auto 2.4 % (18.3-44.2); Mean Corpuscular Hemoglobin 31.2 pg (26-34); Mean Platelet Volume 10.2 fl (7.4-10.4); Monocytes Absolute Auto 1.3 K/mm3 (0.1-0.6); Monocytes Percent Auto 6.1 % (2.6-8.5); Neutrophils Absolute Auto 18.6 K/mm3 (1.3-6.7); Neutrophils Percent Auto 89.5 % (45.5-73.1); Platelet Count Result 488 k/mm3 (150-375); Red Blood Count 5.25 M/mm3 (4.6-6.20); Red Cell Distribution Width 14.2 % (11.5-14.5); White Blood Count 20.8 K/mm3 (4.5-10.0)
[2021-04-07 07:01] LABS: Alanine Aminotransferase 45 U/L (4-50); Anion Gap 6 mmol/L (8-16); Aspartate Amino Transferase 26 U/L (17-59); Blood Urea Nitrogen 47 mg/dL (9-20); CRP < 0.5 mg/dL (<1.0); Calcium 9.2 mg/dL (8.4-10.2); Carbon Dioxide 29 mmol/L (22-30); Chloride 101 mmol/L (98-107); Estimated CRCL calculation 48 ml/min; Estimated Glomerular Filt Rate 55; Glucose 147 mg/dL (65-110); Lactate Dehydrogenase 1027 U/L (313-618); Potassium 4.9 mmol/L (3.4-5.0); Sodium 136 mmol/L (137-145)
[2021-04-07] MEDS: ASCORBIC ACID 500 MG TABLET 1000 MG PO (08:59)
[2021-04-07] MEDS: LANSOPRAZOLE ORAL SUSP 30 MG/10 ML ORAL.SUSP PO ×2 (08:59→17:58)
[2021-04-07] MEDS: guaiFENesin 12 HR 600 MG TABCR PO ×2 (08:59→20:28)
[2021-04-07] MEDS: CHOLECALCIFEROL 1,000 UNITS TABLET 2000 UNITS PO (09:00)
[2021-04-07] MEDS: BARICITINIB 2 MG TABLET 4 MG PO (09:00)
[2021-04-07] MEDS: FERROUS SULFATE 324 MG TABLET PO (09:00)
[2021-04-07] MEDS: TAMSULOSIN HCL 0.4 MG CAPSULE BY MOUTH (09:00)
[2021-04-07] MEDS: PSYLLIUM POWDER PACKET 1 PACKET BY MOUTH (09:00)
[2021-04-07] MEDS: CALCIUM CARBONATE (OSCAL) 500 MG TABLET PO (09:00)
[2021-04-07] MEDS: BENZONATATE 100 MG CAPSULE 200 MG PO ×3 (09:00→17:52)
[2021-04-07] MEDS: OMEGA 3 POLYUNSAT FATTY ACIDS 1 GM CAP PO (09:01)
[2021-04-07] MEDS: PRAMIPEXOLE 0.125 MG TABLET 0.375 MG PO ×2 (09:01→17:52)
[2021-04-07] MEDS: ATORVASTATIN 20 MG TABLET BY MOUTH (09:01)
[2021-04-07] MEDS: MAGNESIUM OXIDE 400 MG TABLET PO (09:01)
[2021-04-07] MEDS: VITAMIN B COMPLEX CAPSULE 1 CAP PO (09:01)
[2021-04-07] MEDS: HYDROcodone/acetaminophen (*CRX) 7.5-325 MG TABLET 1 TAB PO ×3 (09:06→20:28)
[2021-04-07] MEDS: LEVALBUTEROL HFA (*SP) 15 GM INHALER 2 PUFF INHALATION ×3 (09:45→22:06)
--- NOTE | 2021-04-07 11:16 | PM.IMPN ---
Progress Note: A&P Assessment and Plan (1) Pneumonia due to COVID-19 virus: Code(s): U07.1 - COVID-19; J12.82 - Pneumonia due to coronavirus disease 2019 Status: Acute Assessment and Plan: Pt tested positive for covid 03/26/21 -Oxygenation continues at 15L high flow and RN has been decreasing this -continue decadron (last day today), remdesivir, lovenox, and baricitinib -due to leukocytosis, doxycycline and ceftriaxone were added for possible secondary bacterial pneumonia -continue inhalers and spirometer -CXR Stable bilateral airspace disease, consistent with pneumonia 04/04/21 -repeat CXR tomorrow -pt has had 2 of the mRNA vaccines -continue O2 for sats>90. -CTA without concern for PE (2) Acute respiratory failure with hypoxia: Code(s): J96.01 - Acute respiratory failure with hypoxia Status: Acute Assessment and Plan: Due to above -continue o2 for sats >90 (3) Acute metabolic encephalopathy: Code(s): G93.41 - Metabolic encephalopathy Status: Acute Assessment and Plan: Resolved on my exam - states that could be from the morphine or the lorazepam and does not want any further medications needed unless absolutely necessary. -baclofen has been discontinued (4) Pneumonia: Code(s): J18.9 - Pneumonia, unspecified organism Status: Acute Assessment and Plan: as above (5) HTN (hypertension): Qualifiers: Hypertension type: essential hypertension Qualified Code(s): I10 - Essential (primary) hypertension Code(s): I10 - Essential (primary) hypertension Status: Chronic Assessment and Plan: Last bp 161/84 -pt doesn't want to start any new medications unless necessary at this time. He has been running more 140 systolic. Okay to monitor this for now but if persistently high may need to add additional therapy. -continue diltiazem (6) Hypothyroidism: Code(s): E03.9 - Hypothyroidism, unspecified Status: Acute Assessment and Plan: Continue levothyroxine -TSH normal (7) Chronic pain: Code(s): G89.29 - Other chronic pain Status: Acute Assessment and Plan: He has been on Hydrocodone for > 10 years for his low back pain according to PCP notes -will continue with his home pain medications. He says this needs to be scheduled so he doesn't have long periods without it. -monitor for hypoxia (8) Chronic post-traumatic stress 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 combat: Code(s): F43.12 - Post-traumatic stress disorder, chronic Status: Acute Assessment and Plan: continue ativan p.r.n. -patient states he usually does not have to take anything at home because he is not usually locked up in one confined area. 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 He states the medication does help. I understand that we cannot open the window or really walk him around the hospital since he has possible COVID but he is to reach out if he feels this way again. At the very least maybe we can at least open the door for a second or sit with him for moral support during this time. He said his and daughter are helpful in these situations and he can call them during this time, too. - at bedside which is helping (9) Anxiety: Code(s): F41.9 - Anxiety disorder, unspecified Status: Acute Assessment and Plan: Improved (10) Delirium: Code(s): R41.0 - Disorientation, unspecified Status: Acute Assessment and Plan: Was Hallucinating and seeing things. now resolved. -stop baclofen. Continue Ativan and [place] -likely hospital delirium (11) Leukocytosis: Code(s): D72.829 - Elevated white blood cell count, unspecified Status: Acute Assessment and Plan: Leukocytosis noted after several days of IV steroids. Now improving. -started on ceftriaxone and doxycycline for pos
[2021-04-07] MEDS: REMDESIVIR 100 MG/NS 250 ML 100 MG/250 ML BAG 250 MG IVPB (12:00)
[2021-04-07] MEDS: ENOXAPARIN 40 MG/0.4 ML SYRINGE SUB-Q (17:53)
[2021-04-07] MEDS: DOXYCYCLINE IV 100 MG in SODIUM CHLORIDE 0.9% IV 100 ML 50 ML IVPB (18:04)
[2021-04-07] MEDS: MELATONIN 5 MG TABLET PO (20:29)
[2021-04-08] VITALS (15 sets, daily range): BP systolic 113–165; BP diastolic 65–93; PULSE 75–100; RESP 14–24; TEMP 36.3–36.6; O2SAT 89–98
[2021-04-08] MEDS: LORazepam (*CRX) 1 MG TABLET PO ×2 (03:31→20:43)
[2021-04-08] MEDS: HYDROcodone/acetaminophen (*CRX) 7.5-325 MG TABLET 1 TAB PO ×4 (03:31→20:43)
[2021-04-08] MEDS: DOXYCYCLINE IV 100 MG in SODIUM CHLORIDE 0.9% IV 100 ML 50 ML IVPB (05:59)
[2021-04-08] MEDS: LEVOTHYROXINE SODIUM 112 MCG TABLET PO (06:00)
[2021-04-08 06:32] LABS: Basophils Absolute Auto 0.1 K/mm3 (0.0-0.1); Basophils Percent Auto 0.2 % (0.2-1.2); Hematocrit 49.7 % (42.0-52.0); Hemoglobin 17.1 g/dL (14.0-18.0); Immature Granulocyte Absolute 0.36 K/mm3 (0.00-0.031); Immature Granulocyte Percent A 1.4 % (0-0.5); Lymphocytes Absolute Auto 0.54 K/mm3 (0.9-3.2); Lymphocytes Percent Auto 2.2 % (18.3-44.2); Mean Corpuscular HGB Conc 34.4 g/dl (32-36); Mean Corpuscular Hemoglobin 31.5 pg (26-34); Mean Corpuscular Volume 91.5 fl (80-100); Mean Platelet Volume 10.6 fl (7.4-10.4); Monocytes Absolute Auto 1.7 K/mm3 (0.1-0.6); Monocytes Percent Auto 6.8 % (2.6-8.5); Neutrophils Absolute Auto 22.2 K/mm3 (1.3-6.7); Neutrophils Percent Auto 89.4 % (45.5-73.1); Platelet Count Result 465 k/mm3 (150-375); Red Blood Count 5.43 M/mm3 (4.6-6.20); Red Cell Distribution Width 14.2 % (11.5-14.5); White Blood Count 24.9 K/mm3 (4.5-10.0)
[2021-04-08 06:50] LABS: INR 1.2; Prothrombin Time 14.8 Seconds (11.1-14.7)
[2021-04-08 06:51] LABS: Alanine Aminotransferase 48 U/L (4-50); Aspartate Amino Transferase 43 U/L (17-59); Estimated CRCL calculation 56 ml/min; Estimated Glomerular Filt Rate > 60
[2021-04-08] MEDS: LEVALBUTEROL HFA (*SP) 15 GM INHALER 2 PUFF INHALATION ×3 (08:55→21:30)
[2021-04-08] MEDS: BARICITINIB 2 MG TABLET 4 MG PO (09:05)
[2021-04-08] MEDS: PSYLLIUM POWDER PACKET 1 PACKET BY MOUTH (09:06)
[2021-04-08] MEDS: guaiFENesin 12 HR 600 MG TABCR PO ×2 (09:06→20:43)
[2021-04-08] MEDS: BENZONATATE 100 MG CAPSULE 200 MG PO ×2 (09:07→17:12)
--- NOTE | 2021-04-08 09:26 | PM.IMPN ---
Progress Note: A&P Assessment and Plan (1) Pneumothorax: Code(s): J93.9 - Pneumothorax, unspecified Status: Acute Assessment and Plan: Chest x-ray this morning shows small right apical pneumothorax with pneumomediastinum -patient's oxygen was low at 50% with labored breathing as stated above on my arrival to the room but he had taken off his oxygen completely. It was back to 90% with 15 L high-flow in 15 L non-rebreather. -I do not think this needs a chest tube at this time since it is small and he is stable. I will notify the surgeon and place the patient on telemetry. He is already on continuous pulse ox. I have also asked for him to be moved to the monitored room since the patient was found to be off oxygen. -repeat chest x-ray in the a.m. (2) Pneumonia due to COVID-19 virus: Code(s): U07.1 - COVID-19; J12.82 - Pneumonia due to coronavirus disease 2018 Status: Acute Assessment and Plan: Pt tested positive for covid 03/26/21 -Oxygenation continues at 15L high flow -continue remdesivir (last day today), lovenox, and baricitinib. He has finished the Decadron -due to leukocytosis, doxycycline and ceftriaxone were added for possible secondary bacterial pneumonia -continue inhalers and spirometer -CXR as stated above -repeat CXR tomorrow -pt has had 2 of the mRNA vaccines -continue O2 for sats>90. -CTA without concern for PE (3) Acute respiratory failure with hypoxia: Code(s): J96.01 - Acute respiratory failure with hypoxia Status: Acute Assessment and Plan: Due to above -continue o2 for sats >90 (4) Acute metabolic encephalopathy: Code(s): G93.41 - Metabolic encephalopathy Status: Acute Assessment and Plan: Noted to be delusional when I walked into the room. His oxygen was taken off and he was satting at 50%. His delusions improved with re-oxygenation but did not completely resolve. He seemed a little anxious and asking for his . She should be here in a couple of hours. -patient stated he did not sleep well last night, this could be the problem as well - states that could be from the morphine or the lorazepam and does not want any further medications needed unless absolutely necessary. Lorazepam was given last night, will stop this. -baclofen has been discontinued (5) Pneumonia: Code(s): J18.9 - Pneumonia, unspecified organism Status: Acute Assessment and Plan: as above (6) HTN (hypertension): Qualifiers: Hypertension type: essential hypertension Qualified Code(s): I10 - Essential (primary) hypertension Code(s): I10 - Essential (primary) hypertension Status: Chronic Assessment and Plan: Last bp 165/93 -pt doesn't want to start any new medications unless necessary at this time. He has been running more 140 systolic. Okay to monitor this for now but if persistently high may need to add additional therapy. -continue diltiazem (7) Hypothyroidism: Code(s): E03.9 - Hypothyroidism, unspecified Status: Acute Assessment and Plan: Continue levothyroxine -TSH normal (8) Chronic pain: Code(s): G89.29 - Other chronic pain Status: Acute Assessment and Plan: He has been on Hydrocodone for > 10 years for his low back pain according to PCP notes -will continue with his home pain medications. He says this needs to be scheduled so he doesn't have long periods without it. -monitor for hypoxia (9) Chronic post-traumatic stress 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 combat: Code(s): F43.12 - Post-traumatic stress disorder, chronic Status: Acute Assessment and Plan: Patient continues to struggle with this but his being here is helping. -will move him closer to the nurse's station if he agrees. His room is by the helicopter pad which is not helping. -patient states he usually does not have to take anythi
[2021-04-08] MEDS: REMDESIVIR 100 MG/NS 250 ML 100 MG/250 ML BAG 250 MG IVPB (11:49)
[2021-04-08] MEDS: ATORVASTATIN 20 MG TABLET BY MOUTH (11:50)
[2021-04-08] MEDS: OMEGA 3 POLYUNSAT FATTY ACIDS 1 GM CAP PO (11:50)
[2021-04-08] MEDS: LANSOPRAZOLE ORAL SUSP 30 MG/10 ML ORAL.SUSP PO ×2 (11:50→17:27)
[2021-04-08] MEDS: ASCORBIC ACID 500 MG TABLET 1000 MG PO (11:50)
[2021-04-08] MEDS: TAMSULOSIN HCL 0.4 MG CAPSULE BY MOUTH (11:50)
[2021-04-08] MEDS: CHOLECALCIFEROL 1,000 UNITS TABLET 2000 UNITS PO (11:51)
[2021-04-08] MEDS: MAGNESIUM OXIDE 400 MG TABLET PO (11:51)
[2021-04-08] MEDS: VITAMIN B COMPLEX CAPSULE 1 CAP PO (11:51)
[2021-04-08] MEDS: PRAMIPEXOLE 0.125 MG TABLET 0.375 MG PO ×2 (11:52→17:13)
[2021-04-08] MEDS: CALCIUM CARBONATE (OSCAL) 500 MG TABLET PO (11:52)
[2021-04-08] MEDS: FERROUS SULFATE 324 MG TABLET PO (11:52)
--- NOTE | 2021-04-08 14:16 | PC.NURSE ---
This patient, Wilfrido Rodrigues, was received from [ [phone]] on 04/08/21 at 1338. Patient/family oriented to unit policies and routines
--- NOTE | 2021-04-08 15:14 | PC.NURSE ---
Patient moved to IMU 231 from [phone] via recliner per patient request at 1330 with 15 L HF and 15 NRB. aware of transport. Report given to TYRA Joe. Belongings sent with patient.
[2021-04-08] MEDS: ENOXAPARIN 40 MG/0.4 ML SYRINGE SUB-Q (17:14)
[2021-04-08] MEDS: DOXYCYCLINE IV 100 MG in SODIUM CHLORIDE 0.9% IV 100 ML IVPB (19:43)
[2021-04-08] MEDS: QUEtiapine FUMARATE 12.5 MG TABLET PO (20:43)
[2021-04-08] MEDS: MELATONIN 5 MG TABLET PO (20:43)
[2021-04-09] VITALS (17 sets, daily range): BP systolic 107–147; BP diastolic 59–95; PULSE 67–100; RESP 12–26; TEMP 36.6–37.7; O2SAT 87–96
[2021-04-09] MEDS: LEVALBUTEROL HFA (*SP) 15 GM INHALER 2 PUFF INHALATION ×3 (02:23→21:02)
[2021-04-09] MEDS: HYDROcodone/acetaminophen (*CRX) 7.5-325 MG TABLET 1 TAB PO ×3 (05:04→21:13)
[2021-04-09] MEDS: LEVOTHYROXINE SODIUM 112 MCG TABLET PO (05:05)
[2021-04-09] MEDS: LEVOTHYROXINE SODIUM 25 MCG TABLET PO (05:05)
[2021-04-09] MEDS: DOXYCYCLINE IV 100 MG in SODIUM CHLORIDE 0.9% IV 100 ML IVPB (05:05)
[2021-04-09 06:32] LABS: Basophils Absolute Auto 0.1 K/mm3 (0.0-0.1); Basophils Percent Auto 0.2 % (0.2-1.2); Eosinophils Percent Auto 0.1 % (0-4.4); Hematocrit 47.5 % (42.0-52.0); Hemoglobin 16.3 g/dL (14.0-18.0); Immature Granulocyte Absolute 0.38 K/mm3 (0.00-0.031); Immature Granulocyte Percent A 1.3 % (0-0.5); Lymphocytes Absolute Auto 0.69 K/mm3 (0.9-3.2); Lymphocytes Percent Auto 2.4 % (18.3-44.2); Mean Corpuscular HGB Conc 34.3 g/dl (32-36); Mean Corpuscular Hemoglobin 31.3 pg (26-34); Mean Corpuscular Volume 91.2 fl (80-100); Mean Platelet Volume 10.4 fl (7.4-10.4); Monocytes Absolute Auto 1.1 K/mm3 (0.1-0.6); Monocytes Percent Auto 3.9 % (2.6-8.5); Neutrophils Absolute Auto 26.1 K/mm3 (1.3-6.7); Neutrophils Percent Auto 92.1 % (45.5-73.1); Platelet Count Result 384 k/mm3 (150-375); Red Blood Count 5.21 M/mm3 (4.6-6.20); Red Cell Distribution Width 14.1 % (11.5-14.5); White Blood Count 28.4 K/mm3 (4.5-10.0)
[2021-04-09 06:52] LABS: INR 1.2; Prothrombin Time 14.7 Seconds (11.1-14.7)
[2021-04-09 06:53] LABS: Alanine Aminotransferase 54 U/L (4-50); Albumin Level 3.3 g/dL (3.5-5.1); Alkaline Phosphatase 123 U/L (38-126); Anion Gap 6 mmol/L (8-16); Aspartate Amino Transferase 30 U/L (17-59); Bilirubin,Total 1.2 mg/dL (0.2-1.3); Blood Urea Nitrogen 42 mg/dL (9-20); CRP 1.4 mg/dL (<1.0); Calcium 8.7 mg/dL (8.4-10.2); Carbon Dioxide 22 mmol/L (22-30); Chloride 108 mmol/L (98-107); Estimated CRCL calculation 68 ml/min; Estimated Glomerular Filt Rate > 60; Glucose 91 mg/dL (65-110); Magnesium 2.4 mg/dL (1.6-2.3); Potassium 4.1 mmol/L (3.4-5.0); Sodium 136 mmol/L (137-145)
[2021-04-09] MEDS: LORazepam (*CRX) 1 MG TABLET PO (11:31)
[2021-04-09] MEDS: ATORVASTATIN 20 MG TABLET BY MOUTH (11:31)
[2021-04-09] MEDS: PRAMIPEXOLE 0.125 MG TABLET 0.375 MG PO (11:32)
[2021-04-09] MEDS: BARICITINIB 2 MG TABLET 4 MG PO (11:32)
[2021-04-09] MEDS: TAMSULOSIN HCL 0.4 MG CAPSULE BY MOUTH (11:33)
[2021-04-09] MEDS: guaiFENesin 12 HR 600 MG TABCR PO ×2 (11:33→21:13)
[2021-04-09] MEDS: BENZONATATE 100 MG CAPSULE 200 MG PO ×2 (11:33→18:29)
[2021-04-09] MEDS: LANSOPRAZOLE ORAL SUSP 30 MG/10 ML ORAL.SUSP PO (11:34)
--- NOTE | 2021-04-09 15:07 | PM.IMPN ---
Progress Note: A&P Assessment and Plan (1) Pneumothorax: Code(s): J93.9 - Pneumothorax, unspecified Status: Acute Assessment and Plan: Chest x-ray 04/08 showed a small right apical pneumothorax with pneumomediastinum -patient is now on high-flow oxygen and chest x-ray today does not show significant pneumothorax but does show increased pneumomediastinum -I do not think this needs a chest tube at this time since it is small and he is stable. I have notified the surgeon and patient is on telemetry. He is already on continuous pulse ox. -repeat chest x-ray in the a.m. (2) Pneumonia due to COVID-19 virus: Code(s): U07.1 - COVID-19; J12.82 - Pneumonia due to coronavirus disease 2018 Status: Acute Assessment and Plan: Pt tested positive for covid 03/26/21 -patient has worsened today and is on high-flow oxygen and non-rebreather -he has finished remdesivir and Decadron. I am going to stop the baricitinib because it does not seem to be improving his illness and the risk seems to be too high at this point. Continue Lovenox to prevent DVTs -due to leukocytosis, doxycycline and ceftriaxone were added for possible secondary bacterial pneumonia and this was increased to cefepime and vancomycin due to slight fever today and worsening leukocytosis -pt has had 2 of the mRNA vaccines -continue O2 for sats>90. -CTA without concern for PE, D-dimer relatively unchanged -the patient has a guarded prognosis at this time. I have spoken to his daughter about the change in status. For now, we will continue full code status and check an ABG. (3) Acute respiratory failure with hypoxia: Code(s): J96.01 - Acute respiratory failure with hypoxia Status: Acute Assessment and Plan: Due to above -continue o2 for sats >90 (4) Acute metabolic encephalopathy: Code(s): G93.41 - Metabolic encephalopathy Status: Acute Assessment and Plan: Noted intermittently to be delusional. Patient has been anxious as well -he slept better last night - states that could be from the morphine or the lorazepam and does not want any further medications needed unless absolutely necessary but says it is okay to continue the Ativan if absolutely needed. -baclofen has been discontinued -Seroquel started last night, family states they think this did help. Will monitor his confusion on this as it can make it worse. (5) Pneumonia: Code(s): J18.9 - Pneumonia, unspecified organism Status: Acute Assessment and Plan: as above (6) HTN (hypertension): Qualifiers: Hypertension type: essential hypertension Qualified Code(s): I10 - Essential (primary) hypertension Code(s): I10 - Essential (primary) hypertension Status: Chronic Assessment and Plan: Last bp 124/73 -continue diltiazem (7) Hypothyroidism: Code(s): E03.9 - Hypothyroidism, unspecified Status: Acute Assessment and Plan: Continue levothyroxine -TSH normal (8) Chronic pain: Code(s): G89.29 - Other chronic pain Status: Acute Assessment and Plan: He has been on Hydrocodone for > 10 years for his low back pain according to PCP notes -will continue with his home pain medications but now that he is more somnolent I will do this p.r.n. instead of scheduled (9) Chronic post-traumatic stress 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 combat: Code(s): F43.12 - Post-traumatic stress disorder, chronic Status: Acute Assessment and Plan: Patient continues to struggle with this but his being here is helping. -will move him closer to the nurse's station if he agrees. His room is by the helicopter pad which is not helping. -patient states he usually does not have to take anything at home because he is not usually locked up in one confined area. 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 He states the medicatio
[2021-04-09 15:53] LABS: Alveolar/Arterial O2 Gradient 542.2 mmHg; Base Excess ABG -2.3 mEq/l (+/-2.0); Oxygen Saturation ABG 96.1 % (95.0-100.0); Total Hemoglobin 16.7 g/dL (12.0-18.0); pH ABG 7.456 (7.350-7.450)
[2021-04-09 15:54] LABS: Carboxyhemoglobin 0.2 % THb (0-2.0); Fractional Inspired Oxygen 91 %; Methemoglobin ABG 0.3 %THb (0-1.5); Modified Allen's Test Pass; Oxygen Content ABG 22.2 %vol (16.0-22.0); Oxyhemoglobin 94.4 % THb (90.0-100.0); PO2 FiO2 Ratio Arterial Blood 0.85 %; Reduced Hemoglobin 5.1 %THb (0-5.0); Site Drawn RIGHT RADIAL
[2021-04-09 15:55] LABS: Device HIGH FLOW THERAPY
[2021-04-09] MEDS: ENOXAPARIN 40 MG/0.4 ML SYRINGE SUB-Q (18:44)
[2021-04-09] MEDS: MELATONIN 5 MG TABLET PO (21:13)
[2021-04-09] MEDS: QUEtiapine FUMARATE 12.5 MG TABLET PO (21:13)
[2021-04-10] VITALS (30 sets, daily range): BP systolic 114–209; BP diastolic 71–114; PULSE 85–147; RESP 24–41; TEMP 36.7–37.4; O2SAT 86–96; BMI 27.4
[2021-04-10] MEDS: LORazepam INJ (*CRX) 2 MG/ML VIAL 1 MG IV PUSH ×2 (02:13→06:42)
--- NOTE | 2021-04-10 05:05 | PC.NURSE ---
patient is on 15 liter nrb. patient is on airvo at 100%. patients o2 sat's are on maintaining from 79 to 84. patient has increased confusion and is unable to swallow pills now. dr vail is aware and is placing the order for continuous bipap.
[2021-04-10] MEDS: MORPHINE SULFATE (*CRX) 2 MG/ML INJ IV PUSH (06:42)
--- NOTE | 2021-04-10 06:54 | ECG_ITS ---
Measurements Intervals [place] Rate: 99 P: 42 LA: 129 QRS: 26 QRSD: 91 T: 142 QT: 350 QTc: 449 Interpretive Statements SINUS RHYTHM MISSING LEAD V4 MINIMAL Q WAVES- INF/LAT LEADS BORDERLINE ST-T WAVE ABNORMALITY- ANTEROLAT/INF LEADS BASELINE ARTIFACT- I, II, III, AVR, AVL, AVF, V5-V6 BORDERLINE ECG Electronically Signed On 04-10-2021 16:50:54 FOOD AND BEVERAGE ASSISTANT MANAGER by Franco Gu D.O.
[2021-04-10 07:01] LABS: Basophils Percent Auto 0.1 % (0.2-1.2); Eosinophils Absolute Auto 0.1 K/mm3 (0-0.3); Eosinophils Percent Auto 0.4 % (0-4.4); Hematocrit 48.7 % (42.0-52.0); Hemoglobin 16.3 g/dL (14.0-18.0); Immature Granulocyte Absolute 0.19 K/mm3 (0.00-0.031); Lymphocytes Absolute Auto 0.54 K/mm3 (0.9-3.2); Lymphocytes Percent Auto 2.8 % (18.3-44.2); Mean Corpuscular HGB Conc 33.5 g/dl (32-36); Mean Corpuscular Volume 92.6 fl (80-100); Mean Platelet Volume 10.8 fl (7.4-10.4); Monocytes Absolute Auto 0.9 K/mm3 (0.1-0.6); Monocytes Percent Auto 4.7 % (2.6-8.5); Neutrophils Absolute Auto 17.3 K/mm3 (1.3-6.7); Platelet Count Result 329 k/mm3 (150-375); Red Blood Count 5.26 M/mm3 (4.6-6.20); White Blood Count 19.1 K/mm3 (4.5-10.0)
[2021-04-10 07:14] LABS: Alanine Aminotransferase 44 U/L (4-50); Albumin Level 3.2 g/dL (3.5-5.1); Alkaline Phosphatase 113 U/L (38-126); Anion Gap 3 mmol/L (8-16); Aspartate Amino Transferase 29 U/L (17-59); Bilirubin,Total 1.3 mg/dL (0.2-1.3); Blood Urea Nitrogen 32 mg/dL (9-20); Calcium 8.7 mg/dL (8.4-10.2); Carbon Dioxide 23 mmol/L (22-30); Chloride 105 mmol/L (98-107); Estimated CRCL calculation 68 ml/min; Estimated Glomerular Filt Rate > 60; Glucose 117 mg/dL (65-110); Lactate Dehydrogenase 1170 U/L (313-618); Potassium 3.8 mmol/L (3.4-5.0); Sodium 131 mmol/L (137-145)
[2021-04-10 07:18] LABS: INR 1.4; Prothrombin Time 16.9 Seconds (11.1-14.7)
[2021-04-10 07:33] LABS: CRP 22.2 mg/dL (<1.0)
[2021-04-10 08:30] LABS: Ferritin > 2000.00 ng/mL (11.1-264)
[2021-04-10 09:26] LABS: Glucose Point of Care 94 mg/dl (65-105)
--- NOTE | 2021-04-10 10:41 | PM.IMPN ---
Progress Note: A&P Assessment and Plan (1) Acute respiratory failure with hypoxia: Code(s): J96.01 - Acute respiratory failure with hypoxia Status: Acute Assessment and Plan: Pt is not able to keep his sats >90 with bipap 100% -Spoke with ICU physician, and daughter about need for intubation -abg pending, CXR does not show pneumothorax but still shows significant PNA -plan for intubation (2) Pneumothorax: Code(s): J93.9 - Pneumothorax, unspecified Status: Acute Assessment and Plan: Chest x-ray 04/08 showed a small right apical pneumothorax with pneumomediastinum with improvement on todays imaging. -No chest tube needed at this time. I have notified the surgeon and patient is on telemetry. He is already on continuous pulse ox. -repeat chest x-ray in the a.m. (3) Pneumonia due to COVID-19 virus: Code(s): U07.1 - COVID-19; J12.82 - Pneumonia due to coronavirus disease 2018 Status: Acute Assessment and Plan: Pt tested positive for covid 03/26/21 -patient has worsened today and is on bipap -he has finished remdesivir and Decadron. Baricitinib stopped because it does not seem to be improving his illness and the risk seems to be too high at this point. Continue Lovenox to prevent DVTs -due to leukocytosis, doxycycline and ceftriaxone were added for possible secondary bacterial pneumonia and this was increased to cefepime and vancomycin 04/09 -pt has had 2 of the mRNA vaccines -continue O2 for sats>90. -CTA without concern for PE, D-dimer relatively unchanged -the patient has a guarded prognosis at this time. I have spoken to his daughter about the change in status. For now, we will continue full code status and check an ABG. (4) Acute metabolic encephalopathy: Code(s): G93.41 - Metabolic encephalopathy Status: Acute Assessment and Plan: Noted intermittently to be delusional. Patient has been anxious as well -He was given ativan and morphine in the past and again last night. This does worsen his confusion at times but states it was necessary to keep him calm. -baclofen has been discontinued -Seroquel started 04/08, family states they think this did help. (5) Pneumonia: Code(s): J18.9 - Pneumonia, unspecified organism Status: Acute Assessment and Plan: as above (6) HTN (hypertension): Qualifiers: Hypertension type: essential hypertension Qualified Code(s): I10 - Essential (primary) hypertension Code(s): I10 - Essential (primary) hypertension Status: Chronic Assessment and Plan: Last bp 147/78 -continue diltiazem (7) Hypothyroidism: Code(s): E03.9 - Hypothyroidism, unspecified Status: Acute Assessment and Plan: Continue levothyroxine -TSH normal (8) Chronic pain: Code(s): G89.29 - Other chronic pain Status: Acute Assessment and Plan: He has been on Hydrocodone for > 10 years for his low back pain according to PCP notes -will continue with his home pain medications but now that he is more somnolent I will do this p.r.n. instead of scheduled (9) Chronic post-traumatic stress 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 combat: Code(s): F43.12 - Post-traumatic stress disorder, chronic Status: Acute Assessment and Plan: Patient continues to struggle with this but his being here is helping. -will move him closer to the nurse's station if he agrees. His room is by the helicopter pad which is not helping. -patient states he usually does not have to take anything at home because he is not usually locked up in one confined area. 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 He states the medication does help. He said his and daughter are helpful in these situations and have been at bedside. (10) Anxiety: Code(s): F41.9 - Anxiety disorder, unspecified Status: Acute
[2021-04-10 10:44] LABS: PCO2 ABG 30.7 mmHg (35.0-45.0); pH ABG 7.464 (7.350-7.450)
[2021-04-10 10:45] LABS: Base Excess ABG 0.9 mEq/l (+/-2.0); HCO3 ABG 21.5 mEq/l (22.0-26.0); PO2 ABG 43.5 mmHg (80.0-100.0)
[2021-04-10 10:46] LABS: Alveolar/Arterial O2 Gradient 81.9 mmHg; Methemoglobin ABG 0.2 %THb (0-1.5); Oxygen Content ABG 17.5 %vol (16.0-22.0); Oxygen Saturation ABG 82.8 % (95.0-100.0); Oxyhemoglobin 96.3 % THb (90.0-100.0); Reduced Hemoglobin 17.9 %THb (0-5.0); Total Hemoglobin 17.1 g/dL (12.0-18.0)
[2021-04-10 10:47] LABS: Device BIPAP; Expiratory Pressure 8 cmH2O; Fractional Inspired Oxygen 100 %; Inspiratory Pressure 18 cmH2O; Modified Allen's Test Pass; Site Drawn LEFT RADIAL
[2021-04-10] MEDS: LIDOCAINE HCL 1% PF INJ 5 ML VIAL INFILTRATE (11:30)
[2021-04-10] MEDS: FENTANYL 2,500MCG/NS250ML(*CRX 2,500 MCG/250 ML BAG 15 MCG IV CONT (11:35)
[2021-04-10] MEDS: MIDAZOLAM 100MG/NS 100ML(*CRX) 100 MG/100 ML BAG IV CONT (11:35)
[2021-04-10] MEDS: CISATRACURIUM BESYLATE 200 MG in DEXTROSE 5% 80 ML 7.38 ML IV CONT (11:40)
--- NOTE | 2021-04-10 12:20 | WPDPROCEDUR ---
Procedures Intubation Intubation Date: 04/10/21 Intubation Time: 10:55 A pre-procedural Time-Out was completed immediately before starting the procedure and confirmed: Patient Identification, Site, Procedure, Patient Position and the Availability of Requisite Equipment: Yes Sedative: etomidate Paralytic: rocuronium Laryngoscope: fiber optic video scope Assist device used: fiber optic device ET tube size: 8 Tube secured depth (cm): 24 Tube secured location: lips Tube placement confirmation: visualized tube passing through cords, equal breath sounds bilaterally, no breath sounds over epigastrium and confirmation by capnometry Patient tolerated procedure: well and no complications Intubation complications: none
--- NOTE | 2021-04-10 12:22 | WPDCNINT ---
Assessment and Plan Assessment and plan (1) Acute respiratory failure with hypoxia: Code(s): J96.01 - Acute respiratory failure with hypoxia Status: Acute Assessment and Plan: Patient presented to the hospital on 03/26/2021 with complains of shortness of breath and was tested positive for COVID pneumonia. -patient failed BiPAP on 04/10 and was intubated on 04/10 -currently on low tidal volume strategy -peep of 12 and 100% FiO2 -post intubation chest x-ray reviewed, ABGs pending -sedated with fentanyl, Versed infusion, will add Nimbex for vent synchrony -start bronchodilators and Pulmicort (2) Pneumonia due to COVID-19 virus: Code(s): U07.1 - COVID-19; J12.82 - Pneumonia due to coronavirus disease 2019 Status: Acute Assessment and Plan: COVID-19 pneumonia, patient has received 2 doses of mRNA vaccine -has completed a course of dexamethasone and remdesivir -patient received 12 days of baricitinib -elevated inflammatory markers, will continue to trend -continue droplet, airborne, contact isolation/precautions (3) Leukocytosis: Code(s): D72.829 - Elevated white blood cell count, unspecified Status: Acute Assessment and Plan: Leukocytosis is improving -blood cultures have been obtained and pending -patient on vancomycin and cefepime (initiated on 04/09/2021) (4) Transaminitis: Code(s): R74.01 - Elevation of levels of liver transaminase levels Status: Acute Assessment and Plan: LFTs are back to normal (5) HTN (hypertension): Qualifiers: Hypertension type: essential hypertension Qualified Code(s): I10 - Essential (primary) hypertension Code(s): I10 - Essential (primary) hypertension Status: Chronic Assessment and Plan: History of essential hypertension, currently on positive pressure ventilation and sedation medications -hydralazine p.r.n. has been ordered (6) DVT prophylaxis: Code(s): Z29.9 - Encounter for prophylactic measures, unspecified Status: Acute Assessment and Plan: DVT prophylaxis: Lovenox (7) Dietary counseling and surveillance: Code(s): Z71.3 - Dietary counseling and surveillance Status: Acute Assessment and Plan: Stress ulcer prophylaxis: Protonix Will start tube feeds in a.m. Additional Plan Discussed with patient's spouse, updated with patient's condition and plan of care, she was present at the bedside and she was agreeable for intubation and mechanical ventilation Code status: Full code Critical care time spent: 49 minutes This dictation may have been done utilizing a voice recognition system. Attempts have been made to correct errors. However, there may be uncorrected grammatical, spelling, and recognition errors present. Due to a high probability of clinically significant, life threatening deterioration, the patient required my highest level of preparedness to intervene emergently and I personally spent this critical care time directly and personally managing the patient. This critical care time included obtaining a history; examining the patient; pulse oximetry; ordering and review of studies; arranging urgent treatment with development of a management plan; evaluation of patient's response to treatment; frequent reassessment; and discussions with other providers. It was exclusive of separately billable procedures and treating other patients and teaching time. Please see Assessment and Plan section and the rest of the note for further information on patient assessment and treatment Medical Claims Representative Consult Note Consult date: 04/10/21 Time Seen: 10:44 Reason for consult: Acute hypoxic respiratory failure, COVID pneumonia, patient is vaccinated HPI: Wilfrido Rodrigues is a 65 year old male with significant past medical history of BPH, chronic PTSD, GERD, hypercholesterolemia, essential hypertension, hypothyroidism, restless leg syndrome presented the ED on 03/26/2021 with complains
[2021-04-10] MEDS: METOPROLOL TARTRATE INJ 5 MG/5 ML VIAL IV PUSH (12:53)
[2021-04-10] MEDS: PANTOPRAZOLE SODIUM IV 40 MG VIAL IV PUSH (14:05)
[2021-04-10] MEDS: CENTRAL LINE FLUSH 10 ML IV PUSH ×2 (14:06→20:19)
[2021-04-10] MEDS: ALBUTEROL SULFATE NEB 2.5 MG/0.5 ML INH 5 MG INHALATION ×2 (14:46→20:29)
[2021-04-10] MEDS: IPRATROPIUM BR 0.02% INH SOLN 0.5 MG/2.5 ML VIAL INHALATION ×2 (14:46→20:29)
--- NOTE | 2021-04-10 14:52 | PM.CNPUL ---
Assessment and Plan Assessment and plan (1) Pneumonia due to COVID-19 virus: Code(s): U07.1 - COVID-19; J12.82 - Pneumonia due to coronavirus disease 2019 Status: Acute Assessment and Plan: 65-year-old man presented with shortness of breath, fever related to COVID 19 pneumonia. The patient failed BiPAP support treatment for hypoxemic respiratory failure related to COVID. He has completed treatment with dexamethasone remdesivir. He also received baricitinib for 12 days. The patient will be transferred to the intensive care unit for further supportive care. We will sign off. (2) Acute respiratory failure with hypoxia: Code(s): J96.01 - Acute respiratory failure with hypoxia Status: Acute (3) Hypoxia: Code(s): R09.02 - Hypoxemia Status: Acute History of Present Illness History of Present Illness Consult date: 04/10/21 Chief complaint: covid pui,pneumonia,hypoxia Narrative: this 65-year-old man presented to the emergency room approximately 15 days ago with worsening shortness of breath and cough for 1 week prior to admission. Patient had history of exposure to COVID-19 infection as his also tested positive. Prior to coming to the hospital, he had shortness of breath dry cough, and fever, and decreased appetite. His past medical history was significant for hypertension, chronic pain, BPH hypothyroidism. His initial chest imaging studies showed bilateral infiltrates. The patient has completed treatment with dexamethasone remdesivir and also received treatment with baricitinib. He received treatment via high-flow nasal cannula initially and then was placed on BiPAP. Recent chest imaging studies showed right apical pneumothorax with pneumomediastinum. Earlier today while the patient was receiving BiPAP support 18/8, rate of 18 and 100% FiO2, he became very short of breath and his O2 sat was found in the mid 80s. Arterial blood gases showed pH of 7.46, pCO2 of 30, PO2 43, bicarbonate 21. The patient was evaluated by the stock hanger who intubated the patient. Efforts are underway to transfer the patient to the unit. When I evaluated the patient, he was fully sedated following intubation. 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 GERD (gastroesophageal reflux disease) High cholesterol History of blood transfusion HTN (hypertension) Hypogonadism in male Hypothyroidism Hypothyroidism determined by thyroid function test Incisional hernia without obstruction or gangrene (~07/2018) Lipoma of extremity removed Lipomatosis Opioid use, unspecified, uncomplicated Osteoarthritis of knee Restless leg syndrome Surgical History Surgical History H/O repair of rotator cuff left H/O toe surgery H/O uvulectomy History of cataract surgery History of hernia surgery repair incisional hernia with mesh, right side transverses abdominis myofascial flap advancement 5cm History of tonsillectomy S/P cervical spinal fusion Family History Family History Father Family history of lung cancer Sibling Family history of lung cancer Social History Social History (Updated 03/26/21 @ 15:29 by Noris Edge PA-C) Social History: patient does not drink and no longer smokes. He said he quit smoking in 2008. He said before 2008 he would smoked 10 packs of cigarettes a day. I asked him if he was sure it was 10 packs and he was positive. 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 He would like to be a full code. He would like his surrogate decision maker
[2021-04-10 18:22] LABS: Alveolar/Arterial O2 Gradient 589.3 mmHg; Base Excess ABG -4.3 mEq/l (+/-2.0); Fractional Inspired Oxygen 100 %; HCO3 ABG 23.4 mEq/l (22.0-26.0); Oxygen Content ABG 22.4 %vol (16.0-22.0); Oxygen Saturation ABG 92.2 % (95.0-100.0); Oxyhemoglobin 91.7 % THb (90.0-100.0); PCO2 ABG 51.9 mmHg (35.0-45.0); PO2 ABG 71.8 mmHg (80.0-100.0); PO2 FiO2 Ratio Arterial Blood 0.72 %; Total Hemoglobin 17.4 g/dL (12.0-18.0)
[2021-04-10 18:38] LABS: Device VENTILATOR; Modified Allen's Test Pass; Site Drawn LEFT RADIAL; pH ABG 7.271 (7.350-7.450)
[2021-04-10] MEDS: ENOXAPARIN 40 MG/0.4 ML SYRINGE SUB-Q (19:10)
[2021-04-10] MEDS: CISATRACURIUM BESYLATE 200 MG in DEXTROSE 5% 80 ML 9.84 ML IV CONT (20:12)
[2021-04-10] MEDS: BUDESONIDE RESPULE NEB 0.5 MG/2 ML AMP INHALATION (20:29)
[2021-04-10] MEDS: MINERAL OIL/WHITE PETROLATUM OINTMENT 1 APPLIC EACH EYE (22:09)
[2021-04-11] VITALS (47 sets, daily range): BP systolic 88–118; BP diastolic 64–76; PULSE 78–106; RESP 26–28; TEMP 36.6–37.7; O2SAT 94–98; BMI 24.5
[2021-04-11] MEDS: FENTANYL 2,500MCG/NS250ML(*CRX 2,500 MCG/250 ML BAG 20 MCG IV CONT ×2 (00:07→12:16)
[2021-04-11] MEDS: IPRATROPIUM BR 0.02% INH SOLN 0.5 MG/2.5 ML VIAL INHALATION ×4 (02:36→20:07)
[2021-04-11] MEDS: ALBUTEROL SULFATE NEB 2.5 MG/0.5 ML INH 5 MG INHALATION ×4 (02:36→20:07)
[2021-04-11] MEDS: MIDAZOLAM 100MG/NS 100ML(*CRX) 100 MG/100 ML BAG 6 MG IV CONT ×2 (02:39→18:55)
[2021-04-11 04:29] LABS: Basophils Percent Auto 0.1 % (0.2-1.2); Eosinophils Absolute Auto 0.2 K/mm3 (0-0.3); Hematocrit 49.8 % (42.0-52.0); Hemoglobin 16.3 g/dL (14.0-18.0); Immature Granulocyte Absolute 0.15 K/mm3 (0.00-0.031); Immature Granulocyte Percent A 0.7 % (0-0.5); Lymphocytes Absolute Auto 0.52 K/mm3 (0.9-3.2); Lymphocytes Percent Auto 2.5 % (18.3-44.2); Mean Corpuscular HGB Conc 32.7 g/dl (32-36); Mean Corpuscular Hemoglobin 30.9 pg (26-34); Mean Corpuscular Volume 94.5 fl (80-100); Mean Platelet Volume 10.5 fl (7.4-10.4); Monocytes Absolute Auto 1.4 K/mm3 (0.1-0.6); Monocytes Percent Auto 6.7 % (2.6-8.5); Neutrophils Absolute Auto 18.2 K/mm3 (1.3-6.7); Platelet Count Result 280 k/mm3 (150-375); Red Blood Count 5.27 M/mm3 (4.6-6.20); Red Cell Distribution Width 14.4 % (11.5-14.5); White Blood Count 20.5 K/mm3 (4.5-10.0)
[2021-04-11 04:47] LABS: INR 1.3; Prothrombin Time 16.1 Seconds (11.1-14.7)
[2021-04-11 04:50] LABS: Alanine Aminotransferase 36 U/L (4-50); Albumin Level 3.1 g/dL (3.5-5.1); Alkaline Phosphatase 117 U/L (38-126); Anion Gap 1 mmol/L (8-16); Aspartate Amino Transferase 18 U/L (17-59); Bilirubin,Total 0.7 mg/dL (0.2-1.3); Blood Urea Nitrogen 28 mg/dL (9-20); Calcium 8.8 mg/dL (8.4-10.2); Carbon Dioxide 26 mmol/L (22-30); Chloride 107 mmol/L (98-107); D Dimer 2.26 ug/mL (<0.48); Estimated CRCL calculation 68 ml/min; Estimated Glomerular Filt Rate > 60; Glucose 111 mg/dL (65-110); Lactate Dehydrogenase 825 U/L (313-618); Magnesium 2.4 mg/dL (1.6-2.3); Potassium 4.4 mmol/L (3.4-5.0); Sodium 134 mmol/L (137-145)
[2021-04-11 05:37] LABS: Base Excess ABG -3.8 mEq/l (+/-2.0); HCO3 ABG 24.2 mEq/l (22.0-26.0); Oxygen Saturation ABG 92.1 % (95.0-100.0); PCO2 ABG 54.8 mmHg (35.0-45.0); PO2 ABG 72.2 mmHg (80.0-100.0); pH ABG 7.263 (7.350-7.450)
[2021-04-11 05:38] LABS: Alveolar/Arterial O2 Gradient 549.7 mmHg; Carboxyhemoglobin 0.3 % THb (0-2.0); Device VENTILATOR; Fractional Inspired Oxygen 95 %; Methemoglobin ABG 0.3 %THb (0-1.5); Modified Allen's Test Unable to perform; Oxygen Content ABG 22.3 %vol (16.0-22.0); Oxyhemoglobin 92.7 % THb (90.0-100.0); PO2 FiO2 Ratio Arterial Blood 0.76 %; Reduced Hemoglobin 6.7 %THb (0-5.0); Site Drawn RIGHT RADIAL; Total Hemoglobin 17.1 g/dL (12.0-18.0)
[2021-04-11 05:38] LABS: CRP 39.3 mg/dL (<1.0)
[2021-04-11 05:39] LABS: Arterial Blood Gas PEEP 12 cmH2O; Arterial Blood Gas Tidal Volume 400 ml; Arterial Blood Gas Vent Mode CMV; Arterial Blood Gas Ventilator rate 26 /MIN
[2021-04-11] MEDS: LEVOTHYROXINE SODIUM 112 MCG TABLET PO (06:11)
[2021-04-11] MEDS: CENTRAL LINE FLUSH 10 ML IV PUSH ×3 (06:11→20:39)
[2021-04-11] MEDS: CISATRACURIUM BESYLATE 200 MG in DEXTROSE 5% 80 ML 7.38 ML IV CONT ×2 (06:12→20:37)
[2021-04-11] MEDS: LEVOTHYROXINE SODIUM 25 MCG TABLET PO (06:14)
[2021-04-11 07:57] LABS: Ferritin > 2000.00 ng/mL (11.1-264)
[2021-04-11] MEDS: ASCORBIC ACID 500 MG TABLET 1000 MG PO (08:58)
[2021-04-11] MEDS: FERROUS SULFATE 324 MG TABLET PO (08:58)
[2021-04-11] MEDS: PANTOPRAZOLE SODIUM IV 40 MG VIAL IV PUSH (08:59)
[2021-04-11] MEDS: PRAMIPEXOLE 0.125 MG TABLET 0.375 MG PO ×2 (08:59→17:42)
[2021-04-11] MEDS: ATORVASTATIN 20 MG TABLET BY MOUTH (08:59)
[2021-04-11] MEDS: CHOLECALCIFEROL 1,000 UNITS TABLET 2000 UNITS PO (08:59)
[2021-04-11] MEDS: MINERAL OIL/WHITE PETROLATUM OINTMENT 1 APPLIC EACH EYE ×2 (08:59→20:39)
[2021-04-11] MEDS: BUDESONIDE RESPULE NEB 0.5 MG/2 ML AMP INHALATION ×2 (09:12→20:06)
--- NOTE | 2021-04-11 13:57 | WPDINTPN ---
Progress Note: A&P Assessment and Plan (1) Acute respiratory failure with hypoxia: Code(s): J96.01 - Acute respiratory failure with hypoxia Status: Acute Assessment and Plan: Patient presented to the hospital on 03/26/2021 with complains of shortness of breath and was tested positive for COVID pneumonia. -patient failed BiPAP on 04/10 and was intubated on 04/10 -currently on low tidal volume strategy -peep of 12 and 95% FiO2, will wean FiO2 to maintain O2 sats greater than 92% -will prone patient 16-18 hours daily -post intubation chest x-ray reviewed, ABGs pending -sedated with fentanyl, Versed infusion, will add Nimbex for vent synchrony -start bronchodilators and Pulmicort (2) Pneumonia due to COVID-19 virus: Code(s): U07.1 - COVID-19; J12.82 - Pneumonia due to coronavirus disease 2019 Status: Acute Assessment and Plan: COVID-19 pneumonia, patient has received 2 doses of mRNA vaccine -has completed a course of dexamethasone and remdesivir -patient received 12 days of baricitinib -elevated inflammatory markers, will continue to trend -continue droplet, airborne, contact isolation/precautions (3) Leukocytosis: Code(s): D72.829 - Elevated white blood cell count, unspecified Status: Acute Assessment and Plan: Leukocytosis is improving -blood cultures have been obtained and pending -patient on vancomycin and cefepime (initiated on 04/09/2021) (4) Transaminitis: Code(s): R74.01 - Elevation of levels of liver transaminase levels Status: Acute Assessment and Plan: LFTs are back to normal (5) HTN (hypertension): Qualifiers: Hypertension type: essential hypertension Qualified Code(s): I10 - Essential (primary) hypertension Code(s): I10 - Essential (primary) hypertension Status: Chronic Assessment and Plan: History of essential hypertension, currently on positive pressure ventilation and sedation medications -hydralazine p.r.n. has been ordered (6) DVT prophylaxis: Code(s): Z29.9 - Encounter for prophylactic measures, unspecified Status: Acute Assessment and Plan: DVT prophylaxis: Lovenox (7) Dietary counseling and surveillance: Code(s): Z71.3 - Dietary counseling and surveillance Status: Acute Assessment and Plan: Stress ulcer prophylaxis: Protonix Will start tube feeds Additional Plan Discussed with patient's spouse, updated with patient's condition and plan of care, she was present at the bedside and she was agreeable for intubation and mechanical ventilation Code status: Full code Critical care time spent: 34 minutes This dictation may have been done utilizing a voice recognition system. Attempts have been made to correct errors. However, there may be uncorrected grammatical, spelling, and recognition errors present. Due to a high probability of clinically significant, life threatening deterioration, the patient required my highest level of preparedness to intervene emergently and I personally spent this critical care time directly and personally managing the patient. This critical care time included obtaining a history; examining the patient; pulse oximetry; ordering and review of studies; arranging urgent treatment with development of a management plan; evaluation of patient's response to treatment; frequent reassessment; and discussions with other providers. It was exclusive of separately billable procedures and treating other patients and teaching time. Please see Assessment and Plan section and the rest of the note for further information on patient assessment and treatment Subjective Date/time seen: 04/11/21 13:57 Interval history: Reason for consult: Acute hypoxic respiratory failure, COVID pneumonia, patient is vaccinated 04/11/2021: Pt seen and examined, remains intubated on CMV mode, PEEP of 12 and 95%. Sedated with Fenatnyl and versed infusion. Also on Nimbex infusion for
[2021-04-11 14:07] LABS: Arterial Blood Gas Vent Mode CMV; Arterial Blood Gas Ventilator rate 26 /MIN
[2021-04-11 14:08] LABS: Arterial Blood Gas PEEP 12 cmH2O; Arterial Blood Gas Tidal Volume 400 ml
--- NOTE | 2021-04-11 14:14 | PCNFU ---
Nutrition Follow-Up Complete: Inadequate oral intake related to COVID-19 as evidenced by average intake of 50% Goal: Patient to meet estimated nutritional needs. Pt is moderately progressing towards goal Pt current nutrition is Vital AF 1.2 running 10mL/hr over 22 hours. Last recorded weight is 73.1 kg. Bowel Motility: No new BM reported Labs Reviewed: Alb 3.1, Na 134, BUN 28, Mg 2.4, Glu 111, Ferritin >2000 Meds Noted: vitamin C, lipitor, budesonide, maxipime, nimbex, fentanyl, ferrous sulfate, atrovent, synthroid, versed, protonix, mirapex, vitamin D Skin: WNL Additional Notes: ICU follow up. Pt transferred to the ICU from IMU and was intubated on 04/10/21. RDN placed orders for tube feeding of Vital AF 1.2 running at 10mL/hr over 22 hours providing 264kcal, 17g protein, and 178mL of water. Recommendations have been made to increase feeding rate by 20mL/hr q 4 hours until goal rate of 60mL/hr is reached. Goal rate of Vital AF 1.2 running at 60mL/hr over 22 hours will provide 1584kcal, 99g protein, and 1071mL of water, meeting 87% of kcal needs and 100% of protein needs. Recommend starting pt on reglan if pt doesn't tolerate feedings. Agree with diet order at this time. Will continue to follow. Follow daily in ICU rounds. Monitor patients every T/F.
[2021-04-11 16:15] LABS: Vancomycin Trough 7.8 ug/mL (10.0-20.0)
[2021-04-11] MEDS: ENOXAPARIN 40 MG/0.4 ML SYRINGE SUB-Q (17:41)
[2021-04-12] VITALS (35 sets, daily range): BP systolic 111–146; BP diastolic 61–82; PULSE 79–102; RESP 28; TEMP 36.5–37.2; O2SAT 91–99
[2021-04-12] MEDS: FENTANYL 2,500MCG/NS250ML(*CRX 2,500 MCG/250 ML BAG 15 MCG IV CONT (03:28)
[2021-04-12 03:51] LABS: Basophils Percent Auto 0.1 % (0.2-1.2); Eosinophils Absolute Auto 0.2 K/mm3 (0-0.3); Eosinophils Percent Auto 1.1 % (0-4.4); Hematocrit 46.9 % (42.0-52.0); Hemoglobin 15.6 g/dL (14.0-18.0); Immature Granulocyte Absolute 0.07 K/mm3 (0.00-0.031); Immature Granulocyte Percent A 0.4 % (0-0.5); Lymphocytes Absolute Auto 0.37 K/mm3 (0.9-3.2); Mean Corpuscular HGB Conc 33.3 g/dl (32-36); Mean Corpuscular Hemoglobin 31.5 pg (26-34); Mean Corpuscular Volume 94.7 fl (80-100); Mean Platelet Volume 10.7 fl (7.4-10.4); Monocytes Absolute Auto 1.3 K/mm3 (0.1-0.6); Monocytes Percent Auto 7.2 % (2.6-8.5); Neutrophils Absolute Auto 16.5 K/mm3 (1.3-6.7); Neutrophils Percent Auto 89.2 % (45.5-73.1); Platelet Count Result 264 k/mm3 (150-375); Red Blood Count 4.95 M/mm3 (4.6-6.20); Red Cell Distribution Width 14.5 % (11.5-14.5); White Blood Count 18.4 K/mm3 (4.5-10.0)
[2021-04-12 04:01] LABS: Alanine Aminotransferase 28 U/L (4-50); Albumin Level 2.7 g/dL (3.5-5.1); Alkaline Phosphatase 112 U/L (38-126); Anion Gap 5 mmol/L (8-16); Aspartate Amino Transferase 18 U/L (17-59); Bilirubin,Total 0.6 mg/dL (0.2-1.3); Blood Urea Nitrogen 37 mg/dL (9-20); Calcium 8.6 mg/dL (8.4-10.2); Carbon Dioxide 24 mmol/L (22-30); Chloride 107 mmol/L (98-107); Estimated CRCL calculation 61 ml/min; Estimated Glomerular Filt Rate > 60; Glucose 157 mg/dL (65-110); INR 1.2; Magnesium 2.4 mg/dL (1.6-2.3); Phosphorus 2.6 mg/dL (2.5-4.5); Potassium 4.4 mmol/L (3.4-5.0); Prothrombin Time 15.4 Seconds (11.1-14.7); Sodium 136 mmol/L (137-145)
[2021-04-12 04:47] LABS: Platelet Estimate Adequate (Adequate)
[2021-04-12 04:48] LABS: Burr Cells 1+ (NORMAL); Poikilocytosis 1+ (NORMAL)
[2021-04-12] MEDS: CENTRAL LINE FLUSH 10 ML IV PUSH ×3 (05:46→19:38)
[2021-04-12 05:50] LABS: Alveolar/Arterial O2 Gradient 342.7 mmHg; Base Excess ABG -1.9 mEq/l (+/-2.0); HCO3 ABG 24.3 mEq/l (22.0-26.0); Oxygen Content ABG 27.9 %vol (16.0-22.0); Oxygen Saturation ABG 93.3 % (95.0-100.0); PCO2 ABG 45.9 mmHg (35.0-45.0); PO2 ABG 70.8 mmHg (80.0-100.0); Total Hemoglobin 21.3 g/dL (12.0-18.0); pH ABG 7.342 (7.350-7.450)
[2021-04-12] MEDS: LEVOTHYROXINE SODIUM 112 MCG TABLET PO (05:50)
[2021-04-12] MEDS: LEVOTHYROXINE SODIUM 25 MCG TABLET PO (05:50)
[2021-04-12 05:51] LABS: Carboxyhemoglobin 0.3 % THb (0-2.0); Device VENTILATOR; Fractional Inspired Oxygen 65 %; Methemoglobin ABG 0.5 %THb (0-1.5); Modified Allen's Test Pass; Oxyhemoglobin 93.6 % THb (90.0-100.0); PO2 FiO2 Ratio Arterial Blood 1.09 %; Reduced Hemoglobin 5.6 %THb (0-5.0); Site Drawn RIGHT RADIAL
[2021-04-12 05:52] LABS: Arterial Blood Gas PEEP 12 cmH2O; Arterial Blood Gas Tidal Volume 430 ml; Arterial Blood Gas Vent Mode CMV; Arterial Blood Gas Ventilator rate 28 /MIN
--- NOTE | 2021-04-12 07:23 | PCRCNOTE ---
Window of time for administration has passed. See next scheduled administration.
[2021-04-12] MEDS: ALBUTEROL SULFATE NEB 2.5 MG/0.5 ML INH 5 MG INHALATION ×3 (08:02→21:00)
[2021-04-12] MEDS: BUDESONIDE RESPULE NEB 0.5 MG/2 ML AMP INHALATION ×2 (08:02→21:00)
[2021-04-12] MEDS: IPRATROPIUM BR 0.02% INH SOLN 0.5 MG/2.5 ML VIAL INHALATION ×3 (08:02→21:00)
[2021-04-12] MEDS: CHOLECALCIFEROL 1,000 UNITS TABLET 2000 UNITS PO (08:32)
[2021-04-12] MEDS: MINERAL OIL/WHITE PETROLATUM OINTMENT 1 APPLIC EACH EYE ×2 (08:32→19:38)
[2021-04-12] MEDS: ATORVASTATIN 20 MG TABLET BY MOUTH (08:32)
[2021-04-12] MEDS: ASCORBIC ACID 500 MG TABLET 1000 MG PO (08:32)
[2021-04-12] MEDS: FERROUS SULFATE 324 MG TABLET PO (08:32)
[2021-04-12] MEDS: PRAMIPEXOLE 0.125 MG TABLET 0.375 MG PO ×2 (08:33→17:20)
[2021-04-12] MEDS: PANTOPRAZOLE SODIUM IV 40 MG VIAL IV PUSH (08:33)
--- NOTE | 2021-04-12 10:34 | PM.IMPN ---
Progress Note: A&P Assessment and Plan (1) Acute respiratory failure with hypoxia: Code(s): J96.01 - Acute respiratory failure with hypoxia <Noris Edge PA-C - Last Filed: 04/12/21 10:49> Status: Acute <Noris MartaGill Edge PA-C - Last Filed: 04/12/21 10:49> Assessment and Plan: Patient presented to the hospital on 03/26/2021 with complains of shortness of breath and was tested positive for COVID pneumonia. -patient failed BiPAP on 04/10 and was intubated on 04/10 -currently on low tidal volume strategy -peep of 12 and 65% FiO2, will wean FiO2 to maintain O2 sats greater than 92% -Continue to prone patient 16-18 hours daily -post intubation chest x-ray reviewed with no significant change, ABGs improved from yesterday. -sedated with fentanyl, Versed infusion, and also on cisatracurium -Continue bronchodilators and Pulmicort -repeat CXR in AM -CTA 03/26 negative for PE <Noris Edge PA-C - Last Filed: 04/12/21 10:49> (2) Pneumonia due to COVID-19 virus: Code(s): U07.1 - COVID-19; J12.82 - Pneumonia due to coronavirus disease 2019 <Noris Edge PA-C - Last Filed: 04/12/21 10:49> Status: Acute <Noris Edge PA-C - Last Filed: 04/12/21 10:49> Assessment and Plan: COVID-19 pneumonia, patient has received 2 doses of mRNA vaccine -has completed a course of dexamethasone and remdesivir -patient received 12 days of baricitinib -elevated inflammatory markers, will continue to trend -continue droplet, airborne, contact isolation/precautions <Noris Edge PA-C - Last Filed: 04/12/21 10:49> (3) Leukocytosis: Code(s): D72.829 - Elevated white blood cell count, unspecified <Noris Edge PA-C - Last Filed: 04/12/21 10:49> Status: Acute <Noris Edge PA-C - Last Filed: 04/12/21 10:49> Assessment and Plan: Leukocytosis is improving -blood cultures have been obtained with NGTD -patient on vancomycin and cefepime (initiated on 04/09/2021) <Noris RecinosNING albrecht-C - Last Filed: 04/12/21 10:49> (4) Transaminitis: Code(s): R74.01 - Elevation of levels of liver transaminase levels <Norisalex Recinostrena PA-C - Last Filed: 04/12/21 10:49> Status: Acute <Norisalex Edge PA-C - Last Filed: 04/12/21 10:49> Assessment and Plan: LFTs are back to normal <Noris Edge PA-C - Last Filed: 04/12/21 10:49> (5) HTN (hypertension): Qualifiers: Hypertension type: essential hypertension Qualified Code(s): I10 - Essential (primary) hypertension <Noris A. Minesh PA-C - Last Filed: 04/12/21 10:49> Code(s): I10 - Essential (primary) hypertension <Norisalex Recinostrena PA-C - Last Filed: 04/12/21 10:49> Status: Chronic <Noris Edge PA-C - Last Filed: 04/12/21 10:49> Assessment and Plan: Last bp 130/71 History of essential hypertension, currently on positive pressure ventilation and sedation medications -continue hydralazine PRN <Noris Jimenez NING Edge-C - Last Filed: 04/12/21 10:49> (6) DVT prophylaxis: Code(s): Z29.9 - Encounter for prophylactic measures, unspecified <Norisalex Recinostrena PA-C - Last Filed: 04/12/21 10:49> Status: Acute <Noris Recinostrena PA-C - Last Filed: 04/12/21 10:49> Assessment and Plan: DVT prophylaxis: Lovenox <Noris Jimenez Minesh PA-C - Last Filed: 04/12/21 10:49> (7) Dietary counseling and surveillance: Code(s): Z71.3 - Dietary counseling and surveillance <Noris Recinosmus, PA-C - Last Filed: 04/12/21 10:49> Status: Acute <Noris Edge PA-C - Last Filed: 04/12/21 10:49> Assessment and Plan: Stress ulcer prophylaxis: Protonix Continue tube feedings <Noris Edge PA-C - Last Filed: 04/12/21 10:49> Additional Plan Case discussed with Dr. Lemon. Called his , Candy and claudia
[2021-04-12] MEDS: CISATRACURIUM BESYLATE 200 MG in DEXTROSE 5% 80 ML 7.38 ML IV CONT (11:17)
[2021-04-12] MEDS: MIDAZOLAM 100MG/NS 100ML(*CRX) 100 MG/100 ML BAG 6 MG IV CONT (11:52)
[2021-04-12 12:11] LABS: Glucose Point of Care 168 mg/dl (65-105)
[2021-04-12] MEDS: ENOXAPARIN 40 MG/0.4 ML SYRINGE SUB-Q (17:20)
[2021-04-12 18:07] LABS: Glucose Point of Care 195 mg/dl (65-105)
--- NOTE | 2021-04-12 18:19 | PCFNICU ---
ICU Rounding Note: Pt current nutrition is Vital AF 1.2 running at 50mL/hr over 22 hours Last recorded weight is 75 kg. Bowel Motility: LBM 04/05, no new BM reported Labs Reviewed: alb 2.7, Na 136, Mg 2.4, BUN 37, Glu 195 Meds Noted: albuterol, vitamin C, lipitor, budesonide, maxipime, nimbex, lovenox, fentanyl, ferrous sulfate, atrovent, synthroid, versed, protonix, mirapex, vancomycin, vitamin D Skin: WNL Additional Notes: Pt remains on mechanical ventilation and tube feeding of vital AF 1.2 running at 50mL/hr over 22 hours providing 1320kcal, 83g of protein, and 892mL of water. Per EMR, pt is tolerating tube feeding and rate. Recommend increasing feeding rate until goal rate of 60mL/hr is met. Vital AF 1.2 running at 60mL/hr will provide 1584kcal, 99g of protein, 1071mL of water, meeting 87% of kcal needs and 100% of protein needs. Agree with diet orders at this time. Will continue to follow. Following daily in ICU rounds. Monitor patients labs, medications, weight and oral intake every 5 days. .
[2021-04-12] MEDS: FENTANYL 2,500MCG/NS250ML(*CRX 2,500 MCG/250 ML BAG 17.5 MCG IV CONT (19:27)
[2021-04-12] MEDS: METOCLOPRAMIDE HCL INJ 10 MG/2 ML VIAL IV PUSH (21:31)
[2021-04-13] VITALS (58 sets, daily range): BP systolic 114–158; BP diastolic 67–88; PULSE 88–135; RESP 28–34; TEMP 36.5–37.3; O2SAT 91–98
[2021-04-13] MEDS: CISATRACURIUM BESYLATE 200 MG in DEXTROSE 5% 80 ML 7.38 ML IV CONT ×2 (00:22→14:05)
[2021-04-13 00:48] LABS: Glucose Point of Care 140 mg/dl (65-105)
[2021-04-13] MEDS: IPRATROPIUM BR 0.02% INH SOLN 0.5 MG/2.5 ML VIAL INHALATION ×4 (02:42→19:40)
[2021-04-13] MEDS: ALBUTEROL SULFATE NEB 2.5 MG/0.5 ML INH 5 MG INHALATION ×4 (02:43→19:39)
[2021-04-13] MEDS: MIDAZOLAM 100MG/NS 100ML(*CRX) 100 MG/100 ML BAG 6 MG IV CONT (02:58)
[2021-04-13 04:01] LABS: Basophils Percent Auto 0.2 % (0.2-1.2); Eosinophils Absolute Auto 0.2 K/mm3 (0-0.3); Eosinophils Percent Auto 0.7 % (0-4.4); Hematocrit 46.7 % (42.0-52.0); Hemoglobin 15.4 g/dL (14.0-18.0); Immature Granulocyte Absolute 0.29 K/mm3 (0.00-0.031); Immature Granulocyte Percent A 1.2 % (0-0.5); Lymphocytes Absolute Auto 0.55 K/mm3 (0.9-3.2); Lymphocytes Percent Auto 2.3 % (18.3-44.2); Mean Corpuscular Volume 94.2 fl (80-100); Mean Platelet Volume 10.5 fl (7.4-10.4); Monocytes Absolute Auto 2.2 K/mm3 (0.1-0.6); Monocytes Percent Auto 9.1 % (2.6-8.5); Neutrophils Absolute Auto 20.4 K/mm3 (1.3-6.7); Neutrophils Percent Auto 86.5 % (45.5-73.1); Platelet Count Result 310 k/mm3 (150-375); Red Blood Count 4.96 M/mm3 (4.6-6.20); Red Cell Distribution Width 14.4 % (11.5-14.5); White Blood Count 23.6 K/mm3 (4.5-10.0)
[2021-04-13 04:14] LABS: INR 1.3; Prothrombin Time 15.5 Seconds (11.1-14.7)
[2021-04-13 04:16] LABS: D Dimer 1.56 ug/mL (<0.48)
[2021-04-13 04:42] LABS: Vancomycin Trough 11.8 ug/mL (10.0-20.0)
[2021-04-13 04:47] LABS: Alanine Aminotransferase 48 U/L (4-50); Albumin Level 2.8 g/dL (3.5-5.1); Alkaline Phosphatase 381 U/L (38-126); Anion Gap 3 mmol/L (8-16); Aspartate Amino Transferase 34 U/L (17-59); Bilirubin,Total 0.6 mg/dL (0.2-1.3); Blood Urea Nitrogen 32 mg/dL (9-20); Calcium 8.7 mg/dL (8.4-10.2); Carbon Dioxide 27 mmol/L (22-30); Chloride 106 mmol/L (98-107); Estimated CRCL calculation 75 ml/min; Estimated Glomerular Filt Rate > 60; Glucose 159 mg/dL (65-110); Lactate Dehydrogenase 558 U/L (313-618); Magnesium 2.2 mg/dL (1.6-2.3); Phosphorus 2.9 mg/dL (2.5-4.5); Potassium 4.5 mmol/L (3.4-5.0); Sodium 136 mmol/L (137-145)
--- NOTE | 2021-04-13 05:48 | ECG_ITS ---
Measurements Intervals Mason Rate: 125 P: 126 MT: 133 QRS: 139 QRSD: 101 T: -88 QT: 278 QTc: 401 Interpretive Statements SINUS OR ATRIAL TACHYCARDIA ARM LEADS REVERSED INCOMPLETE RIGHT BUNDLE BRANCH BLOCK MINIMAL Q WAVES- INF/LAT LEADS BORDERLINE ST-T WAVE ABNORMALITY- ANTEROLAT/INF LEADS ABNORMAL ECG Electronically Signed On 04-13-2021 7:17:50 TIEING MACHINE OPERATOR by Franco Gu D.O.
[2021-04-13] MEDS: METOCLOPRAMIDE HCL INJ 10 MG/2 ML VIAL IV PUSH ×4 (05:58→23:24)
[2021-04-13] MEDS: LEVOTHYROXINE SODIUM 112 MCG TABLET PO (06:00)
[2021-04-13] MEDS: CENTRAL LINE FLUSH 10 ML IV PUSH ×3 (06:00→20:30)
[2021-04-13] MEDS: LEVOTHYROXINE SODIUM 25 MCG TABLET PO (06:00)
[2021-04-13] MEDS: METOPROLOL TARTRATE INJ 5 MG/5 ML VIAL IV PUSH ×4 (06:13→23:24)
[2021-04-13 07:06] LABS: Alveolar/Arterial O2 Gradient 263.4 mmHg; Base Excess ABG -4.5 mEq/l (+/-2.0); Carboxyhemoglobin 0.2 % THb (0-2.0); Fractional Inspired Oxygen 65 %; HCO3 ABG 29.1 mEq/l (22.0-26.0); Methemoglobin ABG 0.5 %THb (0-1.5); Oxygen Content ABG 21.2 %vol (16.0-22.0); Oxyhemoglobin 93.5 % THb (90.0-100.0); PO2 ABG 88.7 mmHg (80.0-100.0); PO2 FiO2 Ratio Arterial Blood 1.36 %; Reduced Hemoglobin 5.8 %THb (0-5.0); Total Hemoglobin 16.1 g/dL (12.0-18.0)
[2021-04-13 07:10] LABS: pH ABG 7.071 (7.350-7.450)
[2021-04-13 07:11] LABS: Device VENTILATOR; Modified Allen's Test Unable to perform; PCO2 ABG 102.4 mmHg (35.0-45.0); Site Drawn RIGHT RADIAL
[2021-04-13 07:12] LABS: Arterial Blood Gas PEEP 12 cmH2O; Arterial Blood Gas Tidal Volume 430 ml; Arterial Blood Gas Vent Mode CMV; Arterial Blood Gas Ventilator rate 28 /MIN
[2021-04-13 07:30] LABS: Alveolar/Arterial O2 Gradient 253.2 mmHg; Base Excess ABG -5.8 mEq/l (+/-2.0); Carboxyhemoglobin 0.1 % THb (0-2.0); Fractional Inspired Oxygen 65 %; HCO3 ABG 27.3 mEq/l (22.0-26.0); Methemoglobin ABG 0.6 %THb (0-1.5); Oxygen Content ABG 21.7 %vol (16.0-22.0); Oxygen Saturation ABG 95.2 % (95.0-100.0); Oxyhemoglobin 95.5 % THb (90.0-100.0); PO2 ABG 106.5 mmHg (80.0-100.0); PO2 FiO2 Ratio Arterial Blood 1.64 %; Reduced Hemoglobin 3.8 %THb (0-5.0); Total Hemoglobin 16.1 g/dL (12.0-18.0)
[2021-04-13 07:33] LABS: Modified Allen's Test Pass; PCO2 ABG 95.4 mmHg (35.0-45.0); Site Drawn LEFT RADIAL; pH ABG 7.074 (7.350-7.450)
[2021-04-13 07:34] LABS: Arterial Blood Gas PEEP 12 cmH2O; Arterial Blood Gas Tidal Volume 430 ml; Arterial Blood Gas Ventilator rate 28 /MIN; Device VENTILATOR
[2021-04-13 07:35] LABS: Arterial Blood Gas Vent Mode CMV
[2021-04-13] MEDS: FENTANYL 2,500MCG/NS250ML(*CRX 2,500 MCG/250 ML BAG 20 MCG IV CONT ×2 (08:24→20:29)
[2021-04-13] MEDS: PRAMIPEXOLE 0.125 MG TABLET 0.375 MG PO ×2 (08:27→17:12)
[2021-04-13] MEDS: CHOLECALCIFEROL 1,000 UNITS TABLET 2000 UNITS PO (08:27)
[2021-04-13] MEDS: FERROUS SULFATE 324 MG TABLET PO (08:27)
[2021-04-13] MEDS: ASCORBIC ACID 500 MG TABLET 1000 MG PO (08:27)
[2021-04-13] MEDS: PANTOPRAZOLE SODIUM IV 40 MG VIAL IV PUSH (08:27)
[2021-04-13] MEDS: ATORVASTATIN 20 MG TABLET BY MOUTH (08:28)
[2021-04-13] MEDS: MINERAL OIL/WHITE PETROLATUM OINTMENT 1 APPLIC EACH EYE ×2 (08:28→20:30)
[2021-04-13] MEDS: FUROSEMIDE INJ 40 MG/4 ML VIAL IV PUSH (08:40)
[2021-04-13] MEDS: BUDESONIDE RESPULE NEB 0.5 MG/2 ML AMP INHALATION ×2 (09:11→19:39)
[2021-04-13 12:15] LABS: Glucose Point of Care 158 mg/dl (65-105)
[2021-04-13 12:24] LABS: Alveolar/Arterial O2 Gradient 335.4 mmHg; Base Excess ABG -2.2 mEq/l (+/-2.0); Fractional Inspired Oxygen 65 %; HCO3 ABG 25.4 mEq/l (22.0-26.0); Oxygen Content ABG 21.4 %vol (16.0-22.0); Oxygen Saturation ABG 91.8 % (95.0-100.0); Oxyhemoglobin 93.4 % THb (90.0-100.0); PCO2 ABG 53.9 mmHg (35.0-45.0); PO2 ABG 69.4 mmHg (80.0-100.0); PO2 FiO2 Ratio Arterial Blood 1.07 %; Total Hemoglobin 16.3 g/dL (12.0-18.0); pH ABG 7.291 (7.350-7.450)
[2021-04-13 12:25] LABS: Device VENTILATOR; Modified Allen's Test Pass; Site Drawn RIGHT RADIAL
[2021-04-13 12:26] LABS: Arterial Blood Gas PEEP 12 cmH2O; Arterial Blood Gas Tidal Volume 470 ml; Arterial Blood Gas Vent Mode CMV; Arterial Blood Gas Ventilator rate 30 /MIN
--- NOTE | 2021-04-13 13:41 | WPDINTPN ---
Progress Note: A&P Assessment and Plan (1) Acute respiratory failure with hypoxia: Code(s): J96.01 - Acute respiratory failure with hypoxia Status: Acute Assessment and Plan: Patient presented to the hospital on 03/26/2021 with complains of shortness of breath and was tested positive for COVID pneumonia. -patient failed BiPAP on 04/10 and was intubated on 04/10 -currently on low tidal volume strategy -peep of 12 and 65 % FiO2, will wean FiO2 to maintain O2 sats greater than 92% -will prone patient 16-18 hours daily -ABGs this morning showed significant hypercapnia and respiratory acidosis. Ventilator was adjusted and repeat ABGs are improving -sedated with fentanyl, Versed infusion, will add Nimbex for vent synchrony -continue bronchodilators and Pulmicort (2) Pneumonia due to COVID-19 virus: Code(s): U07.1 - COVID-19; J12.82 - Pneumonia due to coronavirus disease 2019 Status: Acute Assessment and Plan: COVID-19 pneumonia, patient has received 2 doses of mRNA vaccine -has completed a course of dexamethasone and remdesivir -patient received 12 days of baricitinib -inflammatory markers are trending down, LDH is normal -continue droplet, airborne, contact isolation/precautions -continue vitamin-C and vitamin-D (3) Leukocytosis: Code(s): D72.829 - Elevated white blood cell count, unspecified Status: Acute Assessment and Plan: WBC count is worsening, patient is afebrile -04/10/2021: Blood cultures are negative x2. -04/13/2021: Sputum cultures are pending Will obtain urine analysis and urine culture -patient on vancomycin and cefepime (initiated on 04/09/2021) (4) Transaminitis: Code(s): R74.01 - Elevation of levels of liver transaminase levels Status: Acute Assessment and Plan: LFTs are back to normal (5) HTN (hypertension): Qualifiers: Hypertension type: essential hypertension Qualified Code(s): I10 - Essential (primary) hypertension Code(s): I10 - Essential (primary) hypertension Status: Chronic Assessment and Plan: History of essential hypertension, currently on positive pressure ventilation and sedation medications -hydralazine p.r.n. has been ordered (6) DVT prophylaxis: Code(s): Z29.9 - Encounter for prophylactic measures, unspecified Status: Acute Assessment and Plan: DVT prophylaxis: Lovenox (7) Dietary counseling and surveillance: Code(s): Z71.3 - Dietary counseling and surveillance Status: Acute Assessment and Plan: Stress ulcer prophylaxis: Protonix Continue tube feeds Additional Plan Code status: Full code Critical care time spent: 33 minutes This dictation may have been done utilizing a voice recognition system. Attempts have been made to correct errors. However, there may be uncorrected grammatical, spelling, and recognition errors present. Due to a high probability of clinically significant, life threatening deterioration, the patient required my highest level of preparedness to intervene emergently and I personally spent this critical care time directly and personally managing the patient. This critical care time included obtaining a history; examining the patient; pulse oximetry; ordering and review of studies; arranging urgent treatment with development of a management plan; evaluation of patient's response to treatment; frequent reassessment; and discussions with other providers. It was exclusive of separately billable procedures and treating other patients and teaching time. Please see Assessment and Plan section and the rest of the note for further information on patient assessment and treatment Subjective Date/time seen: 04/13/21 13:41 Interval history: Reason for consult: Acute hypoxic respiratory failure, COVID pneumonia, patient is vaccinated 04/13/2021: No issues overnight, Pt seen and examined, remains intubated on CMV mode, PEEP of 12 and 55% FiO2.
[2021-04-13 14:32] LABS: Add Urine Microscopic? YES; Appearance Urine Cloudy (Clear); Bacteria Urine Trace /hpf; Bilirubin Urine Negative (Negative); Blood Urine Negative (Negative); Color Urine Yellow (Yellow); Glucose Urine UA Negative (Negative); Hyaline Casts Urine 15-19 /lpf; Ketones Urine Negative (Negative); Leukocyte Esterase Ur Trace LEU/UL (NEGATIVE); Mucus Urine Few /lpf; Nitrate Urine Negative (Negative); Protein Urine Negative (Negative); Specific Grav Ur 1.013 (1.001-1.035); Squamous Epithelial Cell Urine Rare /hpf (Few); Urobilinogen Urine Negative mg/dL (<2.0); WBC Urine 31-50 /hpf (0-3)
--- NOTE | 2021-04-13 14:43 | PCFNICU ---
ICU Rounding Note: Pt current nutrition is Vital AF 1.2 running at 60mL/hr over 22 hours Last recorded weight is 76.2 kg. Bowel Motility: LBM 04/05/21, No new BM reported, Recommend starting miralax Labs Reviewed: ferritin 1890, Alb 2.8, Na 136, ALP 381, BUN 32, Glu 159 Meds Noted: albuterol, vitamin C, lipitor, budesonide, maxipime, nimbex, fentanyl, ferrous sulfate, atrovent, synthroid, reglan, lopressor, versed, protonix, mirapex, vancomycin, vitamin D Skin: WNL Additional Notes: Pt remains on mechanical ventilation and tube feeding of Vital AF 1.2 running at goal rate 60mL/hr over 22 hours providing 1584kcal, 99g of protein, and 1071mL of water, meeting 87% of kcal needs and 100% of protein needs. Pt is poorly tolerating tube feeding and rate. Feeding has been held due to intolerance. Residuals today are 120-340mL, residuals yesterday (04/12/21) were 550mL. Pt was started on reglan on 04/12/21 to aid in tolerance of tube feeding. Agree with diet order at this time. Will continue to follow. Following daily in ICU rounds. Will monitor every T/F.
[2021-04-13] MEDS: MIDAZOLAM 100MG/NS 100ML(*CRX) 100 MG/100 ML BAG 7 MG IV CONT (17:09)
[2021-04-13] MEDS: ENOXAPARIN 40 MG/0.4 ML SYRINGE SUB-Q (17:12)
[2021-04-13 17:52] LABS: Glucose Point of Care 145 mg/dl (65-105)
[2021-04-14] VITALS (45 sets, daily range): BP systolic 114–151; BP diastolic 63–84; PULSE 82–109; RESP 23–139; TEMP 36.4–37.3; O2SAT 91–96
[2021-04-14 00:21] LABS: Glucose Point of Care 169 mg/dl (65-105)
[2021-04-14] MEDS: CISATRACURIUM BESYLATE 200 MG in DEXTROSE 5% 80 ML 9.84 ML IV CONT ×3 (01:48→22:14)
[2021-04-14] MEDS: ALBUTEROL SULFATE NEB 2.5 MG/0.5 ML INH 5 MG INHALATION ×4 (01:54→22:52)
[2021-04-14] MEDS: IPRATROPIUM BR 0.02% INH SOLN 0.5 MG/2.5 ML VIAL INHALATION ×4 (01:54→22:52)
[2021-04-14] MEDS: MIDAZOLAM 100MG/NS 100ML(*CRX) 100 MG/100 ML BAG 10 MG IV CONT ×2 (04:01→14:17)
[2021-04-14 04:34] LABS: Basophils Percent Auto 0.2 % (0.2-1.2); Eosinophils Absolute Auto 0.2 K/mm3 (0-0.3); Eosinophils Percent Auto 0.9 % (0-4.4); Hematocrit 42.9 % (42.0-52.0); Hemoglobin 14.1 g/dL (14.0-18.0); Immature Granulocyte Absolute 0.32 K/mm3 (0.00-0.031); Immature Granulocyte Percent A 1.8 % (0-0.5); Lymphocytes Absolute Auto 0.41 K/mm3 (0.9-3.2); Lymphocytes Percent Auto 2.4 % (18.3-44.2); Mean Corpuscular HGB Conc 32.9 g/dl (32-36); Mean Corpuscular Hemoglobin 31.9 pg (26-34); Mean Corpuscular Volume 97.1 fl (80-100); Mean Platelet Volume 10.9 fl (7.4-10.4); Monocytes Absolute Auto 1.7 K/mm3 (0.1-0.6); Monocytes Percent Auto 9.5 % (2.6-8.5); Neutrophils Absolute Auto 14.8 K/mm3 (1.3-6.7); Neutrophils Percent Auto 85.2 % (45.5-73.1); Platelet Count Result 246 k/mm3 (150-375); Red Blood Count 4.42 M/mm3 (4.6-6.20); Red Cell Distribution Width 14.8 % (11.5-14.5); White Blood Count 17.4 K/mm3 (4.5-10.0)
[2021-04-14 04:44] LABS: INR 1.3; Prothrombin Time 16.4 Seconds (11.1-14.7)
[2021-04-14 05:07] LABS: Alanine Aminotransferase 90 U/L (4-50); Albumin Level 2.6 g/dL (3.5-5.1); Alkaline Phosphatase 648 U/L (38-126); Anion Gap 5 mmol/L (8-16); Aspartate Amino Transferase 78 U/L (17-59); Bilirubin,Total 0.4 mg/dL (0.2-1.3); Blood Urea Nitrogen 52 mg/dL (9-20); Calcium 8.3 mg/dL (8.4-10.2); Carbon Dioxide 28 mmol/L (22-30); Chloride 102 mmol/L (98-107); Estimated CRCL calculation 42 ml/min; Estimated Glomerular Filt Rate 47; Glucose 173 mg/dL (65-110); Magnesium 2.4 mg/dL (1.6-2.3); Phosphorus 3.4 mg/dL (2.5-4.5); Potassium 4.5 mmol/L (3.4-5.0); Sodium 135 mmol/L (137-145)
[2021-04-14 05:21] LABS: Alveolar/Arterial O2 Gradient 312.6 mmHg; Carboxyhemoglobin 0.3 % THb (0-2.0); Fractional Inspired Oxygen 65 %; HCO3 ABG 27.2 mEq/l (22.0-26.0); Methemoglobin ABG 0.6 %THb (0-1.5); Oxygen Content ABG 19.3 %vol (16.0-22.0); Oxygen Saturation ABG 94.9 % (95.0-100.0); Oxyhemoglobin 95.1 % THb (90.0-100.0); PO2 ABG 85.2 mmHg (80.0-100.0); PO2 FiO2 Ratio Arterial Blood 1.31 %; Total Hemoglobin 14.4 g/dL (12.0-18.0)
[2021-04-14 05:24] LABS: pH ABG 7.271 (7.350-7.450)
[2021-04-14 05:25] LABS: Arterial Blood Gas PEEP 12 cmH2O; Arterial Blood Gas Vent Mode CMV; Arterial Blood Gas Ventilator rate 30 /MIN; Device VENTILATOR; Modified Allen's Test Unable to perform; PCO2 ABG 60.4 mmHg (35.0-45.0); Site Drawn RIGHT RADIAL
[2021-04-14 05:26] LABS: Arterial Blood Gas Tidal Volume 470 ml
[2021-04-14] MEDS: METOCLOPRAMIDE HCL INJ 10 MG/2 ML VIAL IV PUSH ×4 (05:49→23:29)
[2021-04-14] MEDS: METOPROLOL TARTRATE INJ 5 MG/5 ML VIAL IV PUSH ×4 (05:49→23:29)
[2021-04-14] MEDS: CENTRAL LINE FLUSH 10 ML IV PUSH ×3 (05:50→20:46)
[2021-04-14] MEDS: LEVOTHYROXINE SODIUM 25 MCG TABLET PO (05:50)
[2021-04-14] MEDS: LEVOTHYROXINE SODIUM 112 MCG TABLET PO (05:50)
[2021-04-14] MEDS: CHOLECALCIFEROL 1,000 UNITS TABLET 2000 UNITS PO (08:11)
[2021-04-14] MEDS: FERROUS SULFATE 324 MG TABLET PO (08:11)
[2021-04-14] MEDS: ASCORBIC ACID 500 MG TABLET 1000 MG PO (08:11)
[2021-04-14] MEDS: ATORVASTATIN 20 MG TABLET BY MOUTH (08:11)
[2021-04-14] MEDS: MINERAL OIL/WHITE PETROLATUM OINTMENT 1 APPLIC EACH EYE ×2 (08:11→20:45)
[2021-04-14] MEDS: PANTOPRAZOLE SODIUM IV 40 MG VIAL IV PUSH (08:12)
[2021-04-14] MEDS: PRAMIPEXOLE 0.125 MG TABLET 0.375 MG PO ×2 (08:12→18:28)
[2021-04-14 10:28] LABS: Creatine Kinase 164 U/L (55-170)
--- NOTE | 2021-04-14 11:29 | PM.CNNEP ---
Assessment and Plan Assessment and plan (1) AMINTA (acute kidney injury): Onset Date: ~04/25/19 Code(s): N17.9 - Acute kidney failure, unspecified Status: Resolved Assessment and Plan: Wilfrido has acute kidney injury. Renal ultrasound does not show obstruction. Urine electrolytes are pending. CPK is normal. There is no peripheral eosinophilia. He is not on any nephrotoxic medications. His blood pressure is doing well. He does not seem dehydrated. His intake/output is very positive. he is getting intermittent diuretics to help preserve oxygenation. Most likely his renal failure is due to progressive COVID 19. obstruction has been ruled out. Rhabdomyolysis has been ruled out. Allergic interstitial nephritis is unlikely with no peripheral eosinophilia and no rash. Glomerulonephritis would be unusual in this clinical circumstance. At this time will continue to observe the creatinine. Will see what the urine electrolytes show. Will follow urine output Will continue to treat blood pressure. discussed with Dr. Mack (2) Pneumonia due to COVID-19 virus: Code(s): U07.1 - COVID-19; J12.82 - Pneumonia due to coronavirus disease 2018 Status: Acute Assessment and Plan: the patient has progressive COVID-19 pneumonia. The patient has received Dexamethasone and remdesivir. he has received 12 days of baricitinib he is on isolation. He is getting pulmonary toilet, bronchodilators, and supportive care. (3) Transaminitis: Code(s): R74.01 - Elevation of levels of liver transaminase levels Status: Acute Assessment and Plan: Liver enzymes Or high but are improving. (4) HTN (hypertension): Qualifiers: Hypertension type: essential hypertension Qualified Code(s): I10 - Essential (primary) hypertension Code(s): I10 - Essential (primary) hypertension Status: Chronic Assessment and Plan: Blood pressure is under pretty good control. Will leave the systolic a bit generous because of the acute kidney injury (5) BPH with obstruction/lower urinary tract symptoms: Code(s): N40.1 - Benign prostatic hyperplasia with lower urinary tract symptoms; N13.8 - Other obstructive and reflux uropathy Status: Chronic Assessment and Plan: he has a Guido cath (6) GERD (gastroesophageal reflux disease): Qualifiers: Esophagitis presence: esophagitis presence not specified Qualified Code(s): K21.9 - Gastro-esophageal reflux disease without esophagitis Code(s): K21.9 - Gastro-esophageal reflux disease without esophagitis Status: Chronic Assessment and Plan: he is on pantoprazole (7) Hypothyroidism: Code(s): E03.9 - Hypothyroidism, unspecified Status: Acute Assessment and Plan: he is on supplement (8) Mixed hyperlipidemia: Code(s): E78.2 - Mixed hyperlipidemia Status: Acute Assessment and Plan: he is on atorvastatin History of Present Illness Reason for Consult Consult date: 04/14/21 Chief Complaint Chief complaint: covid pui,pneumonia,hypoxia History of Present Illness Narrative: Wilfrido is an unfortunate 65-year-old gentleman who has multiple medical problems including hyperlipidemia, vitamin-D deficiency, GERD, hypothyroidism, BPH, chronic pain, arthritis, anemia, restless legs. The patient came in the hospital because of shortness of breath. This had been going on for a few days before admission. His had been positive for COVID before the admission as well. He developed shortness of breath dry cough poor appetite and fevers. He went to the ER nurse found to be COVID positive. Chest x-ray showed bilateral infiltrates. He was admitted and observed. Over the next few days is oxygenation worsens. He was treated with Dexamethasone REM does severe and initially was given antibiotics but those were discontinued
[2021-04-14] MEDS: FUROSEMIDE INJ 40 MG/4 ML VIAL IV PUSH (12:13)
[2021-04-14 13:02] LABS: Creatinine Urine 81.6 mg/dL
[2021-04-14 13:03] LABS: Potassium Urine Random 36.9 meq/L
[2021-04-14 13:04] LABS: Sodium Urine Random < 5 meq/L
[2021-04-14 13:58] LABS: Eosinophil Urine None Seen % (None Seen)
[2021-04-14 14:22] LABS: Glucose Point of Care 174 mg/dl (65-105)
--- NOTE | 2021-04-14 15:13 | WPDINTPN ---
Progress Note: A&P Assessment and Plan (1) Acute respiratory failure with hypoxia: Code(s): J96.01 - Acute respiratory failure with hypoxia Status: Acute Assessment and Plan: Patient presented to the hospital on 03/26/2021 with complains of shortness of breath and was tested positive for COVID pneumonia. -patient failed BiPAP on 04/10 and was intubated on 04/10 -currently on low tidal volume strategy -peep of 12 and 65 % FiO2, will wean FiO2 to maintain O2 sats greater than 92% -will prone patient 16-18 hours daily -ABGs this morning shows respiratory acidosis, allowing permissive hypercapnia to maintain low tidal volume strategy. -sedated with fentanyl, Versed infusion, will add Nimbex for vent synchrony -continue bronchodilators and Pulmicort (2) Pneumonia due to COVID-19 virus: Code(s): U07.1 - COVID-19; J12.82 - Pneumonia due to coronavirus disease 2019 Status: Acute Assessment and Plan: COVID-19 pneumonia, patient has received 2 doses of mRNA vaccine -has completed a course of dexamethasone and remdesivir -patient received 12 days of baricitinib -inflammatory markers are trending down, LDH is normal -continue droplet, airborne, contact isolation/precautions -continue vitamin-C and vitamin-D (3) Leukocytosis: Code(s): D72.829 - Elevated white blood cell count, unspecified Status: Acute Assessment and Plan: WBC count is worsening, patient is afebrile -04/10/2021: Blood cultures are negative x2. -04/13/2021: Sputum cultures negative 04/13/2021: Urine cultures are pending -patient on vancomycin and cefepime (initiated on 04/09/2021) (4) Transaminitis: Code(s): R74.01 - Elevation of levels of liver transaminase levels Status: Acute Assessment and Plan: LFTs are back to normal (5) HTN (hypertension): Qualifiers: Hypertension type: essential hypertension Qualified Code(s): I10 - Essential (primary) hypertension Code(s): I10 - Essential (primary) hypertension Status: Chronic Assessment and Plan: History of essential hypertension, currently on positive pressure ventilation and sedation medications -hydralazine p.r.n. has been ordered (6) DVT prophylaxis: Code(s): Z29.9 - Encounter for prophylactic measures, unspecified Status: Acute Assessment and Plan: DVT prophylaxis: Lovenox (7) Dietary counseling and surveillance: Code(s): Z71.3 - Dietary counseling and surveillance Status: Acute Assessment and Plan: Stress ulcer prophylaxis: Protonix Continue tube feeds (8) AMINTA (acute kidney injury): Onset Date: ~04/25/19 Code(s): N17.9 - Acute kidney failure, unspecified Status: Resolved Assessment and Plan: Acute kidney injury could be related to hypoxia, COVID-19, volume overload -renal ultrasound did not show any hydronephrosis -CK levels are normal, no he is in a failure -discuss with Nephrology, will give a trial of diuretics -continue to monitor urine output, renal function and electrolytes Additional Plan Code status: Full code Critical care time spent: 34 minutes This dictation may have been done utilizing a voice recognition system. Attempts have been made to correct errors. However, there may be uncorrected grammatical, spelling, and recognition errors present. Due to a high probability of clinically significant, life threatening deterioration, the patient required my highest level of preparedness to intervene emergently and I personally spent this critical care time directly and personally managing the patient. This critical care time included obtaining a history; examining the patient; pulse oximetry; ordering and review of studies; arranging urgent treatment with development of a management plan; evaluation of patient's response to treatment; frequent reassessment; and discussions with other providers. It was exclusive of separately billable procedures
[2021-04-14 16:48] LABS: Vancomycin Trough 22.5 ug/mL (10.0-20.0)
--- NOTE | 2021-04-14 16:53 | PCNFU ---
Nutrition Follow-Up Complete: Inadequate oral intake related to COVID-19 as evidenced by average intake of 50% Goal:Patient to meet estimated nutritional needs. Pt is progressing towards goal Pt current nutrition is Vital AF 1.2 running at 60mL/hr over 22 hours Last recorded weight is 75.8 kg. Bowel Motility: LBM 04/07. No new BM reported. Labs Reviewed: AST 78, ALT 90, Alb 2.6, Na 135, Mg 2.4, GFR 173, BUN 52, Cr 1.5, Glu 173, ALD 648 Meds Noted: albuterol, vitamin c, lipitor, maxipime, nimbex, fentanyl, ferrous sulfate, atrovent, synthroid, reglan, lopressor, versed, protonix, mirapex, vancomycin, vitamin D Skin: WNL Additional Notes: Pt remains on mechanical ventilation and tube feeding of Vital AF 1.2 running at 60mL/hr over 22 hours providing 1584kcal, 99g of protein, 1071mL water, meeting 87% of kcal needs and 100% of protein needs. Nursing staff reports this am (04/14/21) that pt is not tolerating tube feeding and rate as evidenced by residuals of 200mL. Reglan started 04/12/21 to aid in tolerance of feeding. Agree with diet order at this time. Will continue to follow. Follow daily in ICU rounds. Monitor every T/F
[2021-04-14] MEDS: ENOXAPARIN 40 MG/0.4 ML SYRINGE SUB-Q (18:28)
[2021-04-14] MEDS: FENTANYL 2,500MCG/NS250ML(*CRX 2,500 MCG/250 ML BAG 20 MCG IV CONT (20:46)
[2021-04-14] MEDS: BUDESONIDE RESPULE NEB 0.5 MG/2 ML AMP INHALATION (22:52)
[2021-04-14 23:49] LABS: Glucose Point of Care 185 mg/dl (65-105)
[2021-04-14 23:49] LABS: Glucose Point of Care 132 mg/dl (65-105)
[2021-04-15] VITALS (38 sets, daily range): BP systolic 128–154; BP diastolic 77–84; PULSE 78–102; RESP 30; TEMP 35.9–36.9; O2SAT 91–95
[2021-04-15] MEDS: MIDAZOLAM 100MG/NS 100ML(*CRX) 100 MG/100 ML BAG 10 MG IV CONT ×3 (01:48→22:07)
[2021-04-15] MEDS: CENTRAL LINE FLUSH 10 ML IV PUSH ×3 (04:05→22:09)
[2021-04-15] MEDS: IPRATROPIUM BR 0.02% INH SOLN 0.5 MG/2.5 ML VIAL INHALATION ×3 (04:36→22:16)
[2021-04-15] MEDS: ALBUTEROL SULFATE NEB 2.5 MG/0.5 ML INH 5 MG INHALATION ×3 (04:37→22:16)
[2021-04-15] MEDS: METOPROLOL TARTRATE INJ 5 MG/5 ML VIAL IV PUSH ×3 (05:01→18:19)
[2021-04-15] MEDS: METOCLOPRAMIDE HCL INJ 10 MG/2 ML VIAL IV PUSH ×3 (05:01→17:32)
[2021-04-15 05:02] LABS: Basophils Absolute Auto 0.1 K/mm3 (0.0-0.1); Basophils Percent Auto 0.3 % (0.2-1.2); Eosinophils Absolute Auto 0.1 K/mm3 (0-0.3); Eosinophils Percent Auto 0.6 % (0-4.4); Hematocrit 40.1 % (42.0-52.0); Hemoglobin 13.3 g/dL (14.0-18.0); Immature Granulocyte Absolute 0.41 K/mm3 (0.00-0.031); Immature Granulocyte Percent A 2.6 % (0-0.5); Lymphocytes Percent Auto 2.5 % (18.3-44.2); Mean Corpuscular HGB Conc 33.2 g/dl (32-36); Mean Corpuscular Hemoglobin 31.7 pg (26-34); Mean Corpuscular Volume 95.5 fl (80-100); Mean Platelet Volume 10.8 fl (7.4-10.4); Monocytes Absolute Auto 1.3 K/mm3 (0.1-0.6); Monocytes Percent Auto 8.2 % (2.6-8.5); Neutrophils Absolute Auto 13.5 K/mm3 (1.3-6.7); Neutrophils Percent Auto 85.8 % (45.5-73.1); Platelet Count Result 215 k/mm3 (150-375); White Blood Count 15.8 K/mm3 (4.5-10.0)
[2021-04-15 05:16] LABS: D Dimer 1.32 ug/mL (<0.48)
[2021-04-15 05:21] LABS: Alveolar/Arterial O2 Gradient 316.3 mmHg; Base Excess ABG -0.4 mEq/l (+/-2.0); Carboxyhemoglobin 0.5 % THb (0-2.0); Fractional Inspired Oxygen 60 %; HCO3 ABG 25.5 mEq/l (22.0-26.0); Methemoglobin ABG 0.3 %THb (0-1.5); Oxygen Content ABG 18.8 %vol (16.0-22.0); Oxygen Saturation ABG 90.2 % (95.0-100.0); Oxyhemoglobin 91.2 % THb (90.0-100.0); PCO2 ABG 46.3 mmHg (35.0-45.0); PO2 ABG 60.6 mmHg (80.0-100.0); PO2 FiO2 Ratio Arterial Blood 1.01 %; Total Hemoglobin 14.7 g/dL (12.0-18.0); pH ABG 7.358 (7.350-7.450)
[2021-04-15 05:24] LABS: Arterial Blood Gas PEEP 12 cmH2O; Arterial Blood Gas Tidal Volume 470 ml; Arterial Blood Gas Vent Mode CMV; Arterial Blood Gas Ventilator rate 30 /MIN; Device VENTILATOR; Modified Allen's Test Unable to perform; Site Drawn LEFT RADIAL
[2021-04-15 05:30] LABS: Alanine Aminotransferase 174 U/L (4-50); Albumin Level 2.6 g/dL (3.5-5.1); Alkaline Phosphatase 864 U/L (38-126); Anion Gap 8 mmol/L (8-16); Aspartate Amino Transferase 131 U/L (17-59); Bilirubin,Total 0.8 mg/dL (0.2-1.3); Blood Urea Nitrogen 63 mg/dL (9-20); Calcium 8.2 mg/dL (8.4-10.2); Carbon Dioxide 24 mmol/L (22-30); Chloride 102 mmol/L (98-107); Estimated CRCL calculation 37 ml/min; Estimated Glomerular Filt Rate 40; Glucose 175 mg/dL (65-110); Lactate Dehydrogenase 704 U/L (313-618); Magnesium 2.3 mg/dL (1.6-2.3); Phosphorus 2.9 mg/dL (2.5-4.5); Potassium 3.9 mmol/L (3.4-5.0); Sodium 134 mmol/L (137-145)
[2021-04-15] MEDS: LEVOTHYROXINE SODIUM 112 MCG TABLET PO (07:27)
[2021-04-15] MEDS: LEVOTHYROXINE SODIUM 25 MCG TABLET PO (07:27)
[2021-04-15] MEDS: CISATRACURIUM BESYLATE 200 MG in DEXTROSE 5% 80 ML 11.07 ML IV CONT (08:21)
[2021-04-15] MEDS: FENTANYL 2,500MCG/NS250ML(*CRX 2,500 MCG/250 ML BAG 20 MCG IV CONT ×2 (08:24→20:36)
[2021-04-15] MEDS: PANTOPRAZOLE SODIUM IV 40 MG VIAL IV PUSH (08:26)
[2021-04-15] MEDS: BUDESONIDE RESPULE NEB 0.5 MG/2 ML AMP INHALATION (09:46)
--- NOTE | 2021-04-15 11:18 | PM.PNNEP ---
Progress Note: A&P Assessment and Plan (1) AMINTA (acute kidney injury): Onset Date: ~04/25/19 Code(s): N17.9 - Acute kidney failure, unspecified Status: Resolved Assessment and Plan: Wilfrido has acute kidney injury. Renal ultrasound does not show obstruction. Urine electrolytes are pending. CPK is normal. There is no peripheral eosinophilia. He is not on any nephrotoxic medications. His blood pressure is doing well. He does not seem dehydrated. His intake/output is very positive. Urine electrolytes are prerenal. I/Os have been positive. he does not have cardiomegaly. albumin is low. perhaps third spacing. he is getting intermittent diuretics to help preserve oxygenation. Most likely his renal failure is due to progressive COVID 19. continue to treat the bp try a day of albumin and diuretics (2) Pneumonia due to COVID-19 virus: Code(s): U07.1 - COVID-19; J12.82 - Pneumonia due to coronavirus disease 2018 Status: Acute Assessment and Plan: the patient has progressive COVID-19 pneumonia. The patient has received Dexamethasone and remdesivir. he has received 12 days of baricitinib he is on isolation. He is getting pulmonary toilet, bronchodilators, and supportive care. (3) Transaminitis: Code(s): R74.01 - Elevation of levels of liver transaminase levels Status: Acute Assessment and Plan: Liver enzymes higher today.. (4) HTN (hypertension): Qualifiers: Hypertension type: essential hypertension Qualified Code(s): I10 - Essential (primary) hypertension Code(s): I10 - Essential (primary) hypertension Status: Chronic Assessment and Plan: Blood pressure is under pretty good control. Will leave the systolic a bit generous because of the acute kidney injury (5) BPH with obstruction/lower urinary tract symptoms: Code(s): N40.1 - Benign prostatic hyperplasia with lower urinary tract symptoms; N13.8 - Other obstructive and reflux uropathy Status: Chronic Assessment and Plan: he has a Guido cath (6) GERD (gastroesophageal reflux disease): Qualifiers: Esophagitis presence: esophagitis presence not specified Qualified Code(s): K21.9 - Gastro-esophageal reflux disease without esophagitis Code(s): K21.9 - Gastro-esophageal reflux disease without esophagitis Status: Chronic Assessment and Plan: he is on pantoprazole (7) Hypothyroidism: Code(s): E03.9 - Hypothyroidism, unspecified Status: Acute Assessment and Plan: he is on supplement (8) Mixed hyperlipidemia: Code(s): E78.2 - Mixed hyperlipidemia Status: Acute Assessment and Plan: he is on atorvastatin Subjective Date/time seen: 04/15/21 11:18 Interval history: pt is sedated and on the ventilator. Exam Narrative: WDWN ill looking male in NAD skin no rash head ncat lungs coarse bilaterally cor reg no rub abd BS+ nontender and soft ext no edema. Objective Data Vital Signs Vital Signs: Vital Signs - 24 hr 04/14/21 11:25 04/14/21 11:58 04/14/21 12:00 Temperature 36.8 C Pulse Rate 108 H 97 102 H Respiratory Rate 30 H 30 H Blood Pressure 114/79 123/82 Pulse Oximetry 92 91 04/14/21 12:14 04/14/21 12:45 04/14/21 14:00 Temperature 37.2 C Pulse Rate 105 H 97 98 Respiratory Rate 30 H 30 H Blood Pressure 114/79 119/76 Pulse Oximetry 91 04/14/21 14:02 04/14/21 14:15 04/14/21 14:17 Temperature Pulse Rate 102 H 102 H 102 H Respiratory Rate 30 H 30 H Blood Pressure Pulse Oximetry 91 04/14/21 14:20 04/14/21 14:30 04/14/21 15:55 Temperature 37.0 C Pulse Rate 102 H 102 H 106 H Respiratory Rate 30 H 30 H 30 H Blood Pressure 141/79 H Pulse Oximetry 93 04/14/21 15:56 04/14/21 15:59 04/14/21 16:00 Temperature Pulse Rate 106 H 106 H 106 H Respiratory Rate 30 H 30 H Blood Pressure Pu
[2021-04-15] MEDS: MINERAL OIL/WHITE PETROLATUM OINTMENT 1 APPLIC EACH EYE ×2 (12:05→20:35)
[2021-04-15] MEDS: ALBUMIN HUMAN 25% 12.5 GM/50ML 50 ML IVPB ×2 (12:13→17:31)
[2021-04-15] MEDS: ATORVASTATIN 20 MG TABLET BY MOUTH (12:27)
[2021-04-15] MEDS: CHOLECALCIFEROL 1,000 UNITS TABLET 2000 UNITS PO (12:27)
[2021-04-15] MEDS: ASCORBIC ACID 500 MG TABLET 1000 MG PO (12:27)
[2021-04-15] MEDS: PRAMIPEXOLE 0.125 MG TABLET 0.375 MG PO ×2 (12:27→17:32)
[2021-04-15] MEDS: FERROUS SULFATE 324 MG TABLET PO (12:27)
[2021-04-15 12:36] LABS: Glucose Point of Care 186 mg/dl (65-105)
[2021-04-15] MEDS: BUMETANIDE INJ 1 MG/4 ML VIAL IV PUSH (13:02)
--- NOTE | 2021-04-15 14:03 | WPDINTPN ---
Progress Note: A&P Assessment and Plan (1) Acute respiratory failure with hypoxia: Code(s): J96.01 - Acute respiratory failure with hypoxia Status: Acute Assessment and Plan: Patient presented to the hospital on 03/26/2021 with complains of shortness of breath and was tested positive for COVID pneumonia. -patient failed BiPAP on 04/10 and was intubated on 04/10 -currently on low tidal volume strategy -peep of 12 and 60 % FiO2, will wean FiO2 to maintain O2 sats greater than 90% -will prone patient 16-18 hours daily -ABGs this morning shows respiratory acidosis, allowing permissive hypercapnia to maintain low tidal volume strategy. -sedated with fentanyl, Versed infusion, will add Nimbex for vent synchrony -continue bronchodilators and Pulmicort -diurese patient (2) Pneumonia due to COVID-19 virus: Code(s): U07.1 - COVID-19; J12.82 - Pneumonia due to coronavirus disease 2019 Status: Acute Assessment and Plan: COVID-19 pneumonia, patient has received 2 doses of mRNA vaccine -has completed a course of dexamethasone and remdesivir -patient received 12 days of baricitinib -inflammatory markers are trending down, LDH is normal -continue droplet, airborne, contact isolation/precautions -continue vitamin-C and vitamin-D (3) Leukocytosis: Code(s): D72.829 - Elevated white blood cell count, unspecified Status: Acute Assessment and Plan: WBC count is worsening, patient is afebrile -04/10/2021: Blood cultures are negative x2. -04/13/2021: Sputum cultures growing Citrobacter 04/13/2021: Urine cultures are pending -will discontinue vancomycin. 04/15/21 -continue Cefepime (initiated on 04/09/2021) (4) Transaminitis: Code(s): R74.01 - Elevation of levels of liver transaminase levels Status: Acute Assessment and Plan: LFTs are back to normal (5) HTN (hypertension): Qualifiers: Hypertension type: essential hypertension Qualified Code(s): I10 - Essential (primary) hypertension Code(s): I10 - Essential (primary) hypertension Status: Chronic Assessment and Plan: History of essential hypertension, currently on positive pressure ventilation and sedation medications -hydralazine p.r.n. has been ordered (6) DVT prophylaxis: Code(s): Z29.9 - Encounter for prophylactic measures, unspecified Status: Acute Assessment and Plan: DVT prophylaxis: Lovenox (7) Dietary counseling and surveillance: Code(s): Z71.3 - Dietary counseling and surveillance Status: Acute Assessment and Plan: Stress ulcer prophylaxis: Protonix High tube feed residuals, -continue Reglan and MiraLax -will obtain obstructive series to rule out ileus/obstruction (8) AMINTA (acute kidney injury): Onset Date: ~04/25/19 Code(s): N17.9 - Acute kidney failure, unspecified Status: Resolved Assessment and Plan: Acute kidney injury could be related to hypoxia, COVID-19, volume overload -renal ultrasound did not show any hydronephrosis -CK levels are normal, no he is in a failure -nephrology started patient on albumin and Bumex -continue to monitor urine output, renal function and electrolytes Additional Plan 04/15/2021: Discussed with Candy and updated with patient's condition and plan of care. I updated her regarding patient's ventilator support, acute kidney injury, increased tube feed residuals. I did also touch base regarding possibility of tracheostomy and PEG tube placement since he has been in the hospital since 03/26/2021. Her daughter is a physician so she is aware of the trach and PEG. I answered all questions Code status: Full code Critical care time spent: 32 minutes This dictation may have been done utilizing a voice recognition system. Attempts have been made to correct errors. However, there may be uncorrected grammatical, spelling, and recognition errors present. Due to a high probability of clini
[2021-04-15] MEDS: CISATRACURIUM BESYLATE 200 MG in DEXTROSE 5% 80 ML 13.53 ML IV CONT ×2 (15:47→22:08)
[2021-04-15] MEDS: ENOXAPARIN 40 MG/0.4 ML SYRINGE SUB-Q (17:32)
[2021-04-16] VITALS (39 sets, daily range): BP systolic 129–160; BP diastolic 72–85; PULSE 80–106; RESP 30; TEMP 35.5–37; O2SAT 90–94
[2021-04-16] MEDS: ALBUMIN HUMAN 25% 12.5 GM/50ML 50 ML IVPB ×2 (00:04→05:58)
[2021-04-16] MEDS: METOCLOPRAMIDE HCL INJ 10 MG/2 ML VIAL IV PUSH ×5 (00:04→23:49)
[2021-04-16 00:26] LABS: Glucose Point of Care 135 mg/dl (65-105)
[2021-04-16 00:26] LABS: Glucose Point of Care 156 mg/dl (65-105)
[2021-04-16] MEDS: BUMETANIDE INJ 1 MG/4 ML VIAL IV PUSH ×3 (01:01→18:19)
[2021-04-16] MEDS: METOPROLOL TARTRATE INJ 5 MG/5 ML VIAL IV PUSH ×5 (01:30→23:49)
[2021-04-16] MEDS: ALBUTEROL SULFATE NEB 2.5 MG/0.5 ML INH 5 MG INHALATION ×4 (04:28→20:57)
[2021-04-16] MEDS: IPRATROPIUM BR 0.02% INH SOLN 0.5 MG/2.5 ML VIAL INHALATION ×4 (04:28→20:57)
[2021-04-16 05:02] LABS: Alveolar/Arterial O2 Gradient 289.7 mmHg; Base Excess ABG 1.5 mEq/l (+/-2.0); Carboxyhemoglobin 0.2 % THb (0-2.0); Fractional Inspired Oxygen 60 %; Methemoglobin ABG 0.3 %THb (0-1.5); Oxygen Saturation ABG 92.9 % (95.0-100.0); PCO2 ABG 59.5 mmHg (35.0-45.0); PO2 ABG 72.7 mmHg (80.0-100.0); PO2 FiO2 Ratio Arterial Blood 1.21 %; Reduced Hemoglobin 6.5 %THb (0-5.0); Total Hemoglobin 12.2 g/dL (12.0-18.0); pH ABG 7.306 (7.350-7.450)
[2021-04-16 05:03] LABS: Device VENTILATOR; Modified Allen's Test Pass; Site Drawn LEFT RADIAL
[2021-04-16 05:04] LABS: Arterial Blood Gas PEEP 12 cmH2O; Arterial Blood Gas Tidal Volume 470 ml; Arterial Blood Gas Vent Mode CMV; Arterial Blood Gas Ventilator rate 30 /MIN
[2021-04-16] MEDS: CISATRACURIUM BESYLATE 200 MG in DEXTROSE 5% 80 ML 13.53 ML IV CONT (05:52)
[2021-04-16] MEDS: CENTRAL LINE FLUSH 10 ML IV PUSH ×3 (06:12→20:13)
[2021-04-16] MEDS: LEVOTHYROXINE SODIUM 25 MCG TABLET PO (06:15)
[2021-04-16] MEDS: LEVOTHYROXINE SODIUM 112 MCG TABLET PO (06:15)
[2021-04-16 06:43] LABS: Basophils Absolute Auto 0.1 K/mm3 (0.0-0.1); Basophils Percent Auto 0.5 % (0.2-1.2); Eosinophils Absolute Auto 0.1 K/mm3 (0-0.3); Eosinophils Percent Auto 0.5 % (0-4.4); Hematocrit 35.9 % (42.0-52.0); Hemoglobin 11.8 g/dL (14.0-18.0); Immature Granulocyte Absolute 0.53 K/mm3 (0.00-0.031); Lymphocytes Absolute Auto 0.32 K/mm3 (0.9-3.2); Lymphocytes Percent Auto 2.4 % (18.3-44.2); Mean Corpuscular HGB Conc 32.9 g/dl (32-36); Mean Corpuscular Hemoglobin 31.4 pg (26-34); Mean Corpuscular Volume 95.5 fl (80-100); Mean Platelet Volume 11.1 fl (7.4-10.4); Monocytes Percent Auto 7.4 % (2.6-8.5); Neutrophils Absolute Auto 11.2 K/mm3 (1.3-6.7); Neutrophils Percent Auto 85.2 % (45.5-73.1); Platelet Count Result 164 k/mm3 (150-375); Red Blood Count 3.76 M/mm3 (4.6-6.20); Red Cell Distribution Width 15.3 % (11.5-14.5); White Blood Count 13.1 K/mm3 (4.5-10.0)
[2021-04-16 06:53] LABS: Albumin Level 2.9 g/dL (3.5-5.1); Anion Gap 10 mmol/L (8-16); Blood Urea Nitrogen 73 mg/dL (9-20); Calcium 8.6 mg/dL (8.4-10.2); Carbon Dioxide 29 mmol/L (22-30); Chloride 98 mmol/L (98-107); Estimated CRCL calculation 29 ml/min; Estimated Glomerular Filt Rate 30; Glucose 181 mg/dL (65-110); Phosphorus 3.4 mg/dL (2.5-4.5); Potassium 3.8 mmol/L (3.4-5.0); Sodium 137 mmol/L (137-145)
[2021-04-16 08:42] LABS: Vancomycin Trough 19.3 ug/mL (10.0-20.0)
[2021-04-16] MEDS: MIDAZOLAM 100MG/NS 100ML(*CRX) 100 MG/100 ML BAG 10 MG IV CONT ×2 (08:58→19:07)
[2021-04-16] MEDS: PANTOPRAZOLE SODIUM IV 40 MG VIAL IV PUSH (09:09)
[2021-04-16] MEDS: PRAMIPEXOLE 0.125 MG TABLET 0.375 MG PO ×2 (09:09→18:18)
[2021-04-16] MEDS: MINERAL OIL/WHITE PETROLATUM OINTMENT 1 APPLIC EACH EYE ×2 (09:10→20:12)
[2021-04-16] MEDS: ATORVASTATIN 20 MG TABLET BY MOUTH (09:10)
[2021-04-16] MEDS: FERROUS SULFATE 324 MG TABLET PO (09:10)
[2021-04-16] MEDS: CHOLECALCIFEROL 1,000 UNITS TABLET 2000 UNITS PO (09:10)
[2021-04-16] MEDS: ASCORBIC ACID 500 MG TABLET 1000 MG PO (09:10)
[2021-04-16] MEDS: FENTANYL 2,500MCG/NS250ML(*CRX 2,500 MCG/250 ML BAG 20 MCG IV CONT ×2 (09:16→21:46)
[2021-04-16] MEDS: BISACODYL 10 MG SUPPOSITORY RECTAL (09:41)
--- NOTE | 2021-04-16 11:04 | PM.PNNEP ---
Progress Note: A&P Assessment and Plan (1) AMINTA (acute kidney injury): Onset Date: ~04/25/19 Code(s): N17.9 - Acute kidney failure, unspecified Status: Resolved Assessment and Plan: Wilfrido has acute kidney injury. Renal ultrasound does not show obstruction. Urine electrolytes are pending. CPK is normal. There is no peripheral eosinophilia. He is not on any nephrotoxic medications. His blood pressure is doing well. He does not seem dehydrated. His intake/output is very positive. Urine electrolytes are prerenal. I/Os have been positive. he does not have cardiomegaly. albumin is low. perhaps third spacing. he is getting intermittent diuretics to help preserve oxygenation. Most likely his renal failure is due to progressive COVID 19. continue to treat the bp His total admission intake/output is very high. try another day of albumin and diuretics (2) Pneumonia due to COVID-19 virus: Code(s): U07.1 - COVID-19; J12.82 - Pneumonia due to coronavirus disease 2018 Status: Acute Assessment and Plan: the patient has progressive COVID-19 pneumonia. The patient has received Dexamethasone and remdesivir. he has received 12 days of baricitinib he is on isolation. He is getting pulmonary toilet, bronchodilators, and supportive care. (3) Transaminitis: Code(s): R74.01 - Elevation of levels of liver transaminase levels Status: Acute Assessment and Plan: Liver enzymes higher today.. (4) HTN (hypertension): Qualifiers: Hypertension type: essential hypertension Qualified Code(s): I10 - Essential (primary) hypertension Code(s): I10 - Essential (primary) hypertension Status: Chronic Assessment and Plan: Blood pressure is under pretty good control. Will leave the systolic a bit generous because of the acute kidney injury (5) BPH with obstruction/lower urinary tract symptoms: Code(s): N40.1 - Benign prostatic hyperplasia with lower urinary tract symptoms; N13.8 - Other obstructive and reflux uropathy Status: Chronic Assessment and Plan: he has a Guido cath (6) GERD (gastroesophageal reflux disease): Qualifiers: Esophagitis presence: esophagitis presence not specified Qualified Code(s): K21.9 - Gastro-esophageal reflux disease without esophagitis Code(s): K21.9 - Gastro-esophageal reflux disease without esophagitis Status: Chronic Assessment and Plan: he is on pantoprazole (7) Hypothyroidism: Code(s): E03.9 - Hypothyroidism, unspecified Status: Acute Assessment and Plan: he is on supplement (8) Mixed hyperlipidemia: Code(s): E78.2 - Mixed hyperlipidemia Status: Acute Assessment and Plan: he is on atorvastatin Subjective Date/time seen: 04/16/21 11:04 Interval history: pt is sedated and on the ventilator. Blood pressure is generous at 1:40 a.m.. Exam Narrative: WDWN ill looking male in NAD skin no rash or subQ nodules head ncat lungs coarse bilaterally cor reg no rub or gallop abd BS+ nontender and soft ext no edema. Objective Data Vital Signs Vital Signs: Vital Signs - 24 hr 04/15/21 12:00 04/15/21 12:04 04/15/21 12:21 Temperature 36.6 C Pulse Rate 100 100 101 H Respiratory Rate 30 H 30 H 30 H Blood Pressure 141/84 H 141/84 H Pulse Oximetry 92 04/15/21 13:01 04/15/21 14:00 04/15/21 15:27 Temperature 36.8 C Pulse Rate 100 88 96 Respiratory Rate 30 H Blood Pressure 128/84 Pulse Oximetry 93 94 04/15/21 15:47 04/15/21 16:00 04/15/21 16:39 Temperature 36.9 C Pulse Rate 92 96 99 Respiratory Rate 30 H 30 H Blood Pressure 131/84 143/84 H Pulse Oximetry 93 95 04/15/21 18:00 04/15/21 18:19 04/15/21 20:00 Temperature 36.4 C 36.8 C Pulse Rate 99 101 H 94 Respiratory Rate 30 H 30 H Blood Pressure 148/80 H 140/81 Pulse Oximetry 92 93 01/0
--- NOTE | 2021-04-16 12:01 | WPDINTPN ---
Progress Note: A&P Assessment and Plan (1) Acute respiratory failure with hypoxia: Code(s): J96.01 - Acute respiratory failure with hypoxia Status: Acute Assessment and Plan: Patient presented to the hospital on 03/26/2021 with complains of shortness of breath and was tested positive for COVID pneumonia. -patient failed BiPAP on 04/10 and was intubated on 04/10 -currently on low tidal volume strategy -peep of 12 and 60 % FiO2, will wean FiO2 to maintain O2 sats greater than 90% -will prone patient 16-18 hours daily -ABGs this morning shows respiratory acidosis, allowing permissive hypercapnia to maintain low tidal volume strategy. -sedated with fentanyl, Versed infusion, will add Nimbex for vent synchrony -continue bronchodilators and Pulmicort -discussed with Nephrology, will continue to diurese patient with Bumex and albumin as he is significantly positive fluid balance (2) Pneumonia due to COVID-19 virus: Code(s): U07.1 - COVID-19; J12.82 - Pneumonia due to coronavirus disease 2019 Status: Acute Assessment and Plan: COVID-19 pneumonia, patient has received 2 doses of mRNA vaccine -has completed a course of dexamethasone and remdesivir -patient received 12 days of baricitinib -inflammatory markers are trending down, LDH is normal -continue droplet, airborne, contact isolation/precautions -continue vitamin-C and vitamin-D (3) Leukocytosis: Code(s): D72.829 - Elevated white blood cell count, unspecified Status: Acute Assessment and Plan: WBC count is worsening, patient is afebrile -04/10/2021: Blood cultures are negative x2. -04/13/2021: Sputum cultures growing Citrobacter 04/13/2021: Urine cultures are pending -will discontinue vancomycin. 04/15/21 -continue Cefepime (initiated on 04/09/2021) (4) Transaminitis: Code(s): R74.01 - Elevation of levels of liver transaminase levels Status: Acute Assessment and Plan: LFTs are back to normal (5) HTN (hypertension): Qualifiers: Hypertension type: essential hypertension Qualified Code(s): I10 - Essential (primary) hypertension Code(s): I10 - Essential (primary) hypertension Status: Chronic Assessment and Plan: History of essential hypertension, currently on positive pressure ventilation and sedation medications -hydralazine p.r.n. has been ordered (6) DVT prophylaxis: Code(s): Z29.9 - Encounter for prophylactic measures, unspecified Status: Acute Assessment and Plan: DVT prophylaxis: Lovenox (7) Dietary counseling and surveillance: Code(s): Z71.3 - Dietary counseling and surveillance Status: Acute Assessment and Plan: Stress ulcer prophylaxis: Protonix High tube feed residuals, -continue Reglan and MiraLax -04/15/2021: Obstructive series no evidence of ileus, obstruction or free air. -will give Dulcolax suppository today (8) AMINTA (acute kidney injury): Onset Date: ~04/25/19 Code(s): N17.9 - Acute kidney failure, unspecified Status: Resolved Assessment and Plan: Acute kidney injury could be related to hypoxia, COVID-19, volume overload -renal ultrasound did not show any hydronephrosis -CK levels are normal, no he is in a failure - good urine output in response to albumin Bumex per Nephrology. Will continue again today -continue to monitor urine output, renal function and electrolytes Additional Plan 04/16/2021: Discussed with daughter Orquidea, who is a physician, with patient's condition and plan of care. I explained to her regarding the respiratory/ventilatory status, I also discussed with her regarding the decline in his kidney function. Continuing to do albumin and Bumex. I answered all questions Code status: Full code Critical care time spent: 34 minutes This dictation may have been done utilizing a voice recognition system. Attempts have been made to correct errors. However, there may be uncorrect
[2021-04-16] MEDS: ALBUMIN HUMAN 25% 25 GM/100 ML 100 ML IVPB ×3 (12:31→23:49)
[2021-04-16 13:01] LABS: Glucose Point of Care 152 mg/dl (65-105)
[2021-04-16] MEDS: CISATRACURIUM BESYLATE 200 MG in DEXTROSE 5% 80 ML 12.3 ML IV CONT ×2 (14:15→21:34)
[2021-04-16] MEDS: ENOXAPARIN 40 MG/0.4 ML SYRINGE SUB-Q (18:18)
[2021-04-16 18:52] LABS: Glucose Point of Care 154 mg/dl (65-105)
[2021-04-17] VITALS (39 sets, daily range): BP systolic 142–162; BP diastolic 61–86; PULSE 81–103; RESP 26–32; TEMP 35.4–36.9; O2SAT 90–94
[2021-04-17 00:14] LABS: Glucose Point of Care 169 mg/dl (65-105)
[2021-04-17] MEDS: ALBUTEROL SULFATE NEB 2.5 MG/0.5 ML INH 5 MG INHALATION ×4 (01:42→21:07)
[2021-04-17] MEDS: IPRATROPIUM BR 0.02% INH SOLN 0.5 MG/2.5 ML VIAL INHALATION ×4 (01:42→21:07)
[2021-04-17] MEDS: MIDAZOLAM 100MG/NS 100ML(*CRX) 100 MG/100 ML BAG 10 MG IV CONT ×2 (04:17→15:00)
[2021-04-17] MEDS: ALBUMIN HUMAN 25% 25 GM/100 ML 100 ML IVPB ×4 (04:17→23:39)
[2021-04-17] MEDS: LEVOTHYROXINE SODIUM 25 MCG TABLET PO (04:30)
[2021-04-17] MEDS: METOPROLOL TARTRATE INJ 5 MG/5 ML VIAL IV PUSH ×4 (04:30→23:42)
[2021-04-17] MEDS: METOCLOPRAMIDE HCL INJ 10 MG/2 ML VIAL IV PUSH ×4 (04:30→23:44)
[2021-04-17] MEDS: CENTRAL LINE FLUSH 10 ML IV PUSH ×3 (04:30→21:05)
[2021-04-17] MEDS: LEVOTHYROXINE SODIUM 112 MCG TABLET PO (04:30)
[2021-04-17 05:01] LABS: Hematocrit 32.1 % (42.0-52.0); Hemoglobin 10.7 g/dL (14.0-18.0); Mean Corpuscular HGB Conc 33.3 g/dl (32-36); Mean Corpuscular Hemoglobin 31.8 pg (26-34); Mean Corpuscular Volume 95.5 fl (80-100); Mean Platelet Volume 10.8 fl (7.4-10.4); Platelet Count Result 142 k/mm3 (150-375); Red Blood Count 3.36 M/mm3 (4.6-6.20); Red Cell Distribution Width 15.3 % (11.5-14.5); White Blood Count 9.3 K/mm3 (4.5-10.0)
[2021-04-17 05:13] LABS: D Dimer 1.83 ug/mL (<0.48)
[2021-04-17] MEDS: CISATRACURIUM BESYLATE 200 MG in DEXTROSE 5% 80 ML 12.3 ML IV CONT ×3 (05:35→21:05)
[2021-04-17 05:50] LABS: Alanine Aminotransferase 153 U/L (4-50); Albumin Level 3.7 g/dL (3.5-5.1); Alkaline Phosphatase 844 U/L (38-126); Anion Gap 11 mmol/L (8-16); Aspartate Amino Transferase 91 U/L (17-59); Bilirubin,Total 1.2 mg/dL (0.2-1.3); Blood Urea Nitrogen 86 mg/dL (9-20); CRP 18.6 mg/dL (<1.0); Calcium 9.1 mg/dL (8.4-10.2); Carbon Dioxide 30 mmol/L (22-30); Chloride 97 mmol/L (98-107); Estimated CRCL calculation 24 ml/min; Estimated Glomerular Filt Rate 25; Glucose 116 mg/dL (65-110); Lactate Dehydrogenase 640 U/L (313-618); Magnesium 2.4 mg/dL (1.6-2.3); Phosphorus 4.3 mg/dL (2.5-4.5); Potassium 3.8 mmol/L (3.4-5.0); Sodium 138 mmol/L (137-145)
[2021-04-17 06:12] LABS: Alveolar/Arterial O2 Gradient 287.4 mmHg; Base Excess ABG 3.8 mEq/l (+/-2.0); Carboxyhemoglobin 0.3 % THb (0-2.0); Fractional Inspired Oxygen 60 %; HCO3 ABG 31.7 mEq/l (22.0-26.0); Methemoglobin ABG 0.4 %THb (0-1.5); Oxygen Content ABG 17.7 %vol (16.0-22.0); Oxygen Saturation ABG 92.5 % (95.0-100.0); Oxyhemoglobin 93.4 % THb (90.0-100.0); PO2 FiO2 Ratio Arterial Blood 1.18 %; Reduced Hemoglobin 5.9 %THb (0-5.0); Total Hemoglobin 13.5 g/dL (12.0-18.0); pH ABG 7.319 (7.350-7.450)
[2021-04-17 06:37] LABS: PCO2 ABG 63.1 mmHg (35.0-45.0)
[2021-04-17 06:38] LABS: Arterial Blood Gas PEEP 12 cmH2O; Arterial Blood Gas Tidal Volume 470 ml; Arterial Blood Gas Vent Mode CMV; Arterial Blood Gas Ventilator rate 30 /MIN; Device VENTILATOR; Modified Allen's Test Unable to perform; Site Drawn RIGHT RADIAL
[2021-04-17] MEDS: PRAMIPEXOLE 0.125 MG TABLET 0.375 MG PO ×2 (09:09→17:51)
[2021-04-17] MEDS: ASCORBIC ACID 500 MG TABLET 1000 MG PO (09:09)
[2021-04-17] MEDS: CHOLECALCIFEROL 1,000 UNITS TABLET 2000 UNITS PO (09:09)
[2021-04-17] MEDS: FERROUS SULFATE 324 MG TABLET PO (09:10)
[2021-04-17] MEDS: BUMETANIDE INJ 1 MG/4 ML VIAL IV PUSH ×2 (09:10→17:51)
[2021-04-17] MEDS: ATORVASTATIN 20 MG TABLET BY MOUTH (09:10)
[2021-04-17] MEDS: PANTOPRAZOLE SODIUM IV 40 MG VIAL IV PUSH (09:10)
[2021-04-17] MEDS: MINERAL OIL/WHITE PETROLATUM OINTMENT 1 APPLIC EACH EYE ×2 (09:11→21:05)
[2021-04-17] MEDS: FENTANYL 2,500MCG/NS250ML(*CRX 2,500 MCG/250 ML BAG 20 MCG IV CONT ×2 (11:26→23:39)
[2021-04-17 11:45] LABS: Glucose Point of Care 137 mg/dl (65-105)
--- NOTE | 2021-04-17 12:26 | PCFNICU ---
ICU Rounding Note: Pt current nutrition is Vital AF 1.2 at 40 ml/hr. Nutrition recommendation: Vital AF 1.2 at 60 ml/hr. Last recorded weight is 75.5 kg, down from 81 kg on admit. Bowel Motility:+BM reported 1/3 Labs Reviewed:Mg 2.4, BUN 86, Cr 2.6,Glu 116,Hct 32.1, Hgb 10.7 Meds Noted:Vit D, Vit C, Bumex, Versed, Fentanyl, Nimbex, Reglan, Atrovent, Synthroid, Mirapex, Lipitor, Ferrous Sulfate. Skin: WNL Additional Notes: Patient remains on mechanical vent and tube feedings of Vital AF 1.2 at 40 ml/hr. 300 residuals reported. Tube feedings have been restarted at 40 ml/hr per nursing. Goal rate is 60 ml/hr over 22 hours. 30 ml free water flush q 4 hours. Agree with diet orders. Following daily in ICU rounds. Reassessing every Saturday and Saturday.
--- NOTE | 2021-04-17 13:21 | WPDINTPN ---
Progress Note: A&P Assessment and Plan (1) Acute respiratory failure with hypoxia: Code(s): J96.01 - Acute respiratory failure with hypoxia Status: Acute Assessment and Plan: Patient presented to the hospital on 03/26/2021 with complains of shortness of breath and was tested positive for COVID pneumonia. -patient failed BiPAP on 04/10 and was intubated on 04/10 -currently on low tidal volume strategy -peep of 12 and 60 % FiO2, will wean FiO2 to maintain O2 sats greater than 90% -will prone patient 16-18 hours daily -ABGs this morning shows respiratory acidosis, allowing permissive hypercapnia to maintain low tidal volume strategy. -sedated with fentanyl, Versed infusion, will add Nimbex for vent synchrony -continue bronchodilators and Pulmicort -discussed with Nephrology, will continue to diurese patient with Bumex and albumin as he is significantly positive fluid balance (2) Pneumonia due to COVID-19 virus: Code(s): U07.1 - COVID-19; J12.82 - Pneumonia due to coronavirus disease 2019 Status: Acute Assessment and Plan: COVID-19 pneumonia, patient has received 2 doses of mRNA vaccine -has completed a course of dexamethasone and remdesivir -patient received 12 days of baricitinib -inflammatory markers are trending down, LDH is normal -continue droplet, airborne, contact isolation/precautions -continue vitamin-C and vitamin-D (3) Leukocytosis: Code(s): D72.829 - Elevated white blood cell count, unspecified Status: Acute Assessment and Plan: WBC count is worsening, patient is afebrile -04/10/2021: Blood cultures are negative x2. -04/13/2021: Sputum cultures growing Citrobacter 04/13/2021: Urine cultures are pending -will discontinue vancomycin. 04/15/21 -continue Cefepime (initiated on 04/09/2021) (4) Transaminitis: Code(s): R74.01 - Elevation of levels of liver transaminase levels Status: Acute Assessment and Plan: LFTs are back to normal (5) HTN (hypertension): Qualifiers: Hypertension type: essential hypertension Qualified Code(s): I10 - Essential (primary) hypertension Code(s): I10 - Essential (primary) hypertension Status: Chronic Assessment and Plan: History of essential hypertension, currently on positive pressure ventilation and sedation medications -hydralazine p.r.n. has been ordered (6) DVT prophylaxis: Code(s): Z29.9 - Encounter for prophylactic measures, unspecified Status: Acute Assessment and Plan: DVT prophylaxis: Lovenox (7) Dietary counseling and surveillance: Code(s): Z71.3 - Dietary counseling and surveillance Status: Acute Assessment and Plan: Stress ulcer prophylaxis: Protonix Patient is tolerating tube feeds better, -continue Reglan and MiraLax -04/15/2021: Obstructive series no evidence of ileus, obstruction or free air. -04/16/2021: Patient did respond to Dulcolax suppository, positive bowel movement (8) AMINTA (acute kidney injury): Onset Date: ~04/25/19 Code(s): N17.9 - Acute kidney failure, unspecified Status: Resolved Assessment and Plan: Acute kidney injury could be related to hypoxia, COVID-19, volume overload -renal ultrasound did not show any hydronephrosis -CK levels are normal, -creatinine is trending up, he might peak his creatinine at some point - good urine output in response to albumin Bumex per Nephrology. Will continue again today per Nephrology -continue to monitor urine output, renal function and electrolytes Additional Plan 04/16/2021: Discussed with daughter Orquidea, who is a physician, with patient's condition and plan of care. I explained to her regarding the respiratory/ventilatory status, I also discussed with her regarding the decline in his kidney function. Continuing to do albumin and Bumex. I answered all questions Code status: Full code Critical care time spent: 33 minutes This dictation ma
--- NOTE | 2021-04-17 15:41 | PM.PNNEP ---
Progress Note: A&P Assessment and Plan (1) AMINTA (acute kidney injury): Onset Date: ~04/25/19 Code(s): N17.9 - Acute kidney failure, unspecified Status: Resolved Assessment and Plan: Wilfrido has acute kidney injury. Renal ultrasound does not show obstruction. CPK is normal. There is no peripheral eosinophilia. He is not on any nephrotoxic medications. His blood pressure is doing well. He does not seem dehydrated. His intake/output is very positive. Urine electrolytes are prerenal. I/Os have been positive. he does not have cardiomegaly. albumin is low. perhaps third spacing. he is getting diuretics to help preserve oxygenation. Most likely his renal failure is due to progressive COVID 19. continue to treat the bp His total admission intake/output is very high. try yet another day of albumin and diuretics Creatinine is a little higher again today. (2) Pneumonia due to COVID-19 virus: Code(s): U07.1 - COVID-19; J12.82 - Pneumonia due to coronavirus disease 2018 Status: Acute Assessment and Plan: the patient has progressive COVID-19 pneumonia. The patient has received Dexamethasone and remdesivir. he is getting baricitinib he is on isolation. He is getting pulmonary toilet, bronchodilators, and supportive care. (3) Transaminitis: Code(s): R74.01 - Elevation of levels of liver transaminase levels Status: Acute Assessment and Plan: Liver enzymes improving. (4) HTN (hypertension): Qualifiers: Hypertension type: essential hypertension Qualified Code(s): I10 - Essential (primary) hypertension Code(s): I10 - Essential (primary) hypertension Status: Chronic Assessment and Plan: Blood pressure is under pretty good control. Will leave the systolic a bit generous because of the acute kidney injury (5) BPH with obstruction/lower urinary tract symptoms: Code(s): N40.1 - Benign prostatic hyperplasia with lower urinary tract symptoms; N13.8 - Other obstructive and reflux uropathy Status: Chronic Assessment and Plan: he has a Guido cath (6) GERD (gastroesophageal reflux disease): Qualifiers: Esophagitis presence: esophagitis presence not specified Qualified Code(s): K21.9 - Gastro-esophageal reflux disease without esophagitis Code(s): K21.9 - Gastro-esophageal reflux disease without esophagitis Status: Chronic Assessment and Plan: he is on pantoprazole (7) Hypothyroidism: Code(s): E03.9 - Hypothyroidism, unspecified Status: Acute Assessment and Plan: he is on supplement (8) Mixed hyperlipidemia: Code(s): E78.2 - Mixed hyperlipidemia Status: Acute Assessment and Plan: he is on atorvastatin Subjective Date/time seen: 04/17/21 15:41 Interval history: pt is sedated and on the ventilator. on paralytics. Blood pressure is running with a systolic of 140-160 Exam Narrative: WDWN ill looking male in NAD. He is in the prone position this morning. skin no rash or subQ nodules head ncat lungs coarse bilaterally cor reg no rub or gallop abd BS+ nontender and soft ext no edema or cyanosis. Objective Data Vital Signs Vital Signs: Vital Signs - 24 hr 04/16/21 16:00 04/16/21 16:51 04/16/21 18:00 Temperature 35.9 C L Pulse Rate 90 80 93 Respiratory Rate 30 H 30 H Blood Pressure 129/79 157/83 H Pulse Oximetry 94 92 94 04/16/21 18:13 04/16/21 18:18 04/16/21 18:58 Temperature Pulse Rate 94 94 90 Respiratory Rate 30 H 30 H Blood Pressure 157/83 H Pulse Oximetry 04/16/21 19:07 04/16/21 20:00 04/16/21 20:10 Temperature 35.6 C L Pulse Rate 90 89 90 Respiratory Rate 30 H 30 H 30 H Blood Pressure 155/83 H Pulse Oximetry 93 04/16/21 20:11 04/16/21 20:54 04/16/21 21:34 Temperature Pulse Rate 89 92 95 Respiratory Rate 30 H 30 H Blood Pressur
[2021-04-17] MEDS: ENOXAPARIN 40 MG/0.4 ML SYRINGE SUB-Q (17:52)
[2021-04-17 18:54] LABS: Glucose Point of Care 170 mg/dl (65-105)
[2021-04-17 23:53] LABS: Glucose Point of Care 168 mg/dl (65-105)
[2021-04-18] VITALS (43 sets, daily range): BP systolic 127–162; BP diastolic 66–80; PULSE 88–112; RESP 25–30; TEMP 36.5–36.8; O2SAT 90–98
[2021-04-18] MEDS: MIDAZOLAM 100MG/NS 100ML(*CRX) 100 MG/100 ML BAG 10 MG IV CONT ×3 (00:56→21:56)
[2021-04-18] MEDS: ALBUTEROL SULFATE NEB 2.5 MG/0.5 ML INH 5 MG INHALATION ×4 (02:42→19:54)
[2021-04-18] MEDS: IPRATROPIUM BR 0.02% INH SOLN 0.5 MG/2.5 ML VIAL INHALATION ×4 (02:43→19:55)
[2021-04-18] MEDS: CISATRACURIUM BESYLATE 200 MG in DEXTROSE 5% 80 ML 14.76 ML IV CONT ×3 (04:00→17:32)
[2021-04-18] MEDS: METOPROLOL TARTRATE INJ 5 MG/5 ML VIAL IV PUSH ×4 (04:53→23:35)
[2021-04-18] MEDS: METOCLOPRAMIDE HCL INJ 10 MG/2 ML VIAL IV PUSH ×4 (04:55→23:36)
[2021-04-18] MEDS: ALBUMIN HUMAN 25% 25 GM/100 ML 100 ML IVPB (05:00)
[2021-04-18] MEDS: CENTRAL LINE FLUSH 10 ML IV PUSH ×3 (05:00→20:32)
[2021-04-18] MEDS: LEVOTHYROXINE SODIUM 25 MCG TABLET PO (05:09)
[2021-04-18] MEDS: LEVOTHYROXINE SODIUM 112 MCG TABLET PO (05:09)
[2021-04-18 05:10] LABS: Hemoglobin 10.3 g/dL (14.0-18.0); Mean Corpuscular HGB Conc 33.2 g/dl (32-36); Mean Corpuscular Hemoglobin 31.6 pg (26-34); Mean Corpuscular Volume 95.1 fl (80-100); Mean Platelet Volume 10.8 fl (7.4-10.4); Platelet Count Result 118 k/mm3 (150-375); Red Blood Count 3.26 M/mm3 (4.6-6.20); Red Cell Distribution Width 15.5 % (11.5-14.5)
[2021-04-18 05:24] LABS: Alanine Aminotransferase 115 U/L (4-50); Alkaline Phosphatase 647 U/L (38-126); Anion Gap 13 mmol/L (8-16); Aspartate Amino Transferase 55 U/L (17-59); Bilirubin,Total 1.5 mg/dL (0.2-1.3); Blood Urea Nitrogen 100 mg/dL (9-20); Calcium 9.5 mg/dL (8.4-10.2); Carbon Dioxide 31 mmol/L (22-30); Chloride 96 mmol/L (98-107); Estimated CRCL calculation 21 ml/min; Estimated Glomerular Filt Rate 21; Glucose 147 mg/dL (65-110); Magnesium 2.3 mg/dL (1.6-2.3); Phosphorus 3.2 mg/dL (2.5-4.5); Potassium 3.5 mmol/L (3.4-5.0); Sodium 140 mmol/L (137-145)
[2021-04-18 06:37] LABS: Alveolar/Arterial O2 Gradient 259.8 mmHg; Base Excess ABG 1.3 mEq/l (+/-2.0); Carboxyhemoglobin 0.1 % THb (0-2.0); Fractional Inspired Oxygen 55 %; HCO3 ABG 28.2 mEq/l (22.0-26.0); Methemoglobin ABG 0.3 %THb (0-1.5); Oxygen Content ABG 14.2 %vol (16.0-22.0); Oxygen Saturation ABG 92.4 % (95.0-100.0); Oxyhemoglobin 92.4 % THb (90.0-100.0); PCO2 ABG 56.1 mmHg (35.0-45.0); PO2 ABG 69.9 mmHg (80.0-100.0); PO2 FiO2 Ratio Arterial Blood 1.27 %; Reduced Hemoglobin 7.2 %THb (0-5.0); Total Hemoglobin 10.9 g/dL (12.0-18.0); pH ABG 7.319 (7.350-7.450)
--- NOTE | 2021-04-18 06:39 | PM.PNNEP ---
Progress Note: A&P Assessment and Plan (1) AMINTA (acute kidney injury): Onset Date: ~04/25/19 Code(s): N17.9 - Acute kidney failure, unspecified Status: Resolved Assessment and Plan: Wilfrido has acute kidney injury. Renal ultrasound does not show obstruction. CPK is normal. There is no peripheral eosinophilia. He is not on any nephrotoxic medications. His blood pressure is doing well. He does not seem dehydrated. His intake/output is very positive. Urine electrolytes are prerenal. I/Os have been positive. he does not have cardiomegaly. albumin is low. perhaps third spacing. he is getting diuretics to help preserve oxygenation. His creatinine continues to rise slowly. Most likely his renal failure is due to progressive COVID 19. His total admission intake/output is very high. He has no swelling but he does have pulmonary infiltrates. FiO2 is 55%, down a little bit from yesterday. Creatinine is a little higher again today. Will discuss with Dr. Lemon (2) Pneumonia due to COVID-19 virus: Code(s): U07.1 - COVID-19; J12.82 - Pneumonia due to coronavirus disease 2018 Status: Acute Assessment and Plan: the patient has progressive COVID-19 pneumonia. The patient has received Dexamethasone and remdesivir. he is getting baricitinib he is on isolation. He is getting pulmonary toilet, bronchodilators, and supportive care. Oxygenation is marginally better today. (3) Transaminitis: Code(s): R74.01 - Elevation of levels of liver transaminase levels Status: Acute Assessment and Plan: Liver enzymes improving. (4) HTN (hypertension): Qualifiers: Hypertension type: essential hypertension Qualified Code(s): I10 - Essential (primary) hypertension Code(s): I10 - Essential (primary) hypertension Status: Chronic Assessment and Plan: Blood pressure is under pretty good control. Will leave the systolic a bit generous because of the acute kidney injury (5) BPH with obstruction/lower urinary tract symptoms: Code(s): N40.1 - Benign prostatic hyperplasia with lower urinary tract symptoms; N13.8 - Other obstructive and reflux uropathy Status: Chronic Assessment and Plan: he has a Guido cath (6) GERD (gastroesophageal reflux disease): Qualifiers: Esophagitis presence: esophagitis presence not specified Qualified Code(s): K21.9 - Gastro-esophageal reflux disease without esophagitis Code(s): K21.9 - Gastro-esophageal reflux disease without esophagitis Status: Chronic Assessment and Plan: he is on pantoprazole (7) Hypothyroidism: Code(s): E03.9 - Hypothyroidism, unspecified Status: Acute Assessment and Plan: he is on supplement (8) Mixed hyperlipidemia: Code(s): E78.2 - Mixed hyperlipidemia Status: Acute Assessment and Plan: he is on atorvastatin Subjective Date/time seen: 04/18/21 06:39 Interval history: pt is sedated and on the ventilator. on paralytics. Blood pressure is still running with a systolic of 140-160 Exam Narrative: WDWN ill looking male in NAD. He is in the prone position this morning. skin no rash or subQ nodules head ncat lungs coarse bilaterally cor reg no rub or gallop abd BS+ nontender and soft ext no edema or cyanosis. Objective Data Vital Signs Vital Signs: Vital Signs - 24 hr 04/17/21 07:57 04/17/21 08:00 04/17/21 10:00 Temperature 36.7 C 36.3 C L Pulse Rate 100 97 88 Respiratory Rate 30 H 26 H Blood Pressure 162/80 H 155/61 H Pulse Oximetry 93 93 92 04/17/21 10:13 04/17/21 11:18 04/17/21 11:26 Temperature Pulse Rate 88 90 88 Respiratory Rate 26 H 26 H Blood Pressure Pulse Oximetry 90 04/17/21 12:00 04/17/21 13:43 04/17/21 13:55 Temperature 36.1 C L Pulse Rate 92 92 92 Respiratory Rate 30 H 30 H 30 H Blood Pressure 162/8
[2021-04-18 06:49] LABS: Arterial Blood Gas Vent Mode CMV; Arterial Blood Gas Ventilator rate 30 /MIN; Device VENTILATOR; Modified Allen's Test Unable to perform; Site Drawn RIGHT RADIAL
[2021-04-18 06:50] LABS: Arterial Blood Gas PEEP 12 cmH2O; Arterial Blood Gas Tidal Volume 470 ml
--- NOTE | 2021-04-18 09:17 | PM.IMPN ---
Progress Note: A&P Assessment and Plan (1) Acute respiratory failure with hypoxia: Code(s): J96.01 - Acute respiratory failure with hypoxia Status: Acute Assessment and Plan: Patient presented to the hospital on 03/26/2021 with complains of shortness of breath and was tested positive for COVID pneumonia. -patient failed BiPAP on 04/10 and was intubated on 04/10 -currently on low tidal volume strategy -peep of 12 and 60 % FiO2, will wean FiO2 to maintain O2 sats greater than 90% -will prone patient 16-18 hours daily -ABGs this morning shows respiratory acidosis, allowing permissive hypercapnia to maintain low tidal volume strategy. -sedated with fentanyl, Versed infusion, will add Nimbex for vent synchrony -continue bronchodilators and Pulmicort -discussed with Nephrology, will continue to diurese patient with Bumex and albumin as he is significantly positive fluid balance (2) Pneumonia due to COVID-19 virus: Code(s): U07.1 - COVID-19; J12.82 - Pneumonia due to coronavirus disease 2019 Status: Acute Assessment and Plan: COVID-19 pneumonia, patient has received 2 doses of mRNA vaccine -has completed a course of dexamethasone and remdesivir -patient received 12 days of baricitinib -inflammatory markers are trending down, LDH is normal -continue droplet, airborne, contact isolation/precautions -continue vitamin-C and vitamin-D (3) Leukocytosis: Code(s): D72.829 - Elevated white blood cell count, unspecified Status: Acute Assessment and Plan: WBC count is worsening, patient is afebrile -04/10/2021: Blood cultures are negative x2. -04/13/2021: Sputum cultures growing Citrobacter 04/13/2021: Urine cultures are pending -will discontinue vancomycin. 04/15/21 -continue Cefepime (initiated on 04/09/2021) (4) Transaminitis: Code(s): R74.01 - Elevation of levels of liver transaminase levels Status: Acute Assessment and Plan: LFTs are back to normal (5) HTN (hypertension): Qualifiers: Hypertension type: essential hypertension Qualified Code(s): I10 - Essential (primary) hypertension Code(s): I10 - Essential (primary) hypertension Status: Chronic Assessment and Plan: History of essential hypertension, currently on positive pressure ventilation and sedation medications -hydralazine p.r.n. has been ordered (6) DVT prophylaxis: Code(s): Z29.9 - Encounter for prophylactic measures, unspecified Status: Acute Assessment and Plan: DVT prophylaxis: Lovenox (7) Dietary counseling and surveillance: Code(s): Z71.3 - Dietary counseling and surveillance Status: Acute Assessment and Plan: Stress ulcer prophylaxis: Protonix Patient is tolerating tube feeds better, -continue Reglan and MiraLax -04/15/2021: Obstructive series no evidence of ileus, obstruction or free air. -04/16/2021: Patient did respond to Dulcolax suppository, positive bowel movement (8) AMINTA (acute kidney injury): Onset Date: ~04/25/19 Code(s): N17.9 - Acute kidney failure, unspecified Status: Resolved Assessment and Plan: Acute non oliguric kidney injury could be related to hypoxia, COVID-19, volume overload -creatinine 1.5->1.7->2.2->2.6->3. -renal ultrasound did not show any hydronephrosis -CK levels are normal, -creatinine is trending up, he might peak his creatinine at some point - good urine output in response to albumin Bumex per Nephrology. Will continue again today per Nephrology -continue to monitor urine output, renal function and electrolytes Additional Plan Code status: Full code Critical care time spent: 33 minutes This dictation may have been done utilizing a voice recognition system. Attempts have been made to correct errors. However, there may be uncorrected grammatical, spelling, and recognition errors present. Due to a high probability of clinically significant, life threatening d
[2021-04-18] MEDS: MINERAL OIL/WHITE PETROLATUM OINTMENT 1 APPLIC EACH EYE ×2 (09:49→20:32)
[2021-04-18] MEDS: PANTOPRAZOLE SODIUM IV 40 MG VIAL IV PUSH (09:49)
[2021-04-18] MEDS: BUMETANIDE INJ 1 MG/4 ML VIAL IV PUSH ×2 (09:49→17:31)
[2021-04-18] MEDS: ASCORBIC ACID 500 MG TABLET 1000 MG PO (09:49)
[2021-04-18] MEDS: CHOLECALCIFEROL 1,000 UNITS TABLET 2000 UNITS PO (09:49)
[2021-04-18] MEDS: PRAMIPEXOLE 0.125 MG TABLET 0.375 MG PO ×2 (09:49→17:32)
[2021-04-18] MEDS: ATORVASTATIN 20 MG TABLET BY MOUTH (09:50)
[2021-04-18] MEDS: FERROUS SULFATE 324 MG TABLET PO (09:50)
[2021-04-18 11:55] LABS: Glucose Point of Care 121 mg/dl (65-105)
[2021-04-18] MEDS: FENTANYL 2,500MCG/NS250ML(*CRX 2,500 MCG/250 ML BAG 20 MCG IV CONT (12:14)
--- NOTE | 2021-04-18 12:17 | PCNFU ---
Nutrition Follow-Up Complete: Inadequate oral intake related to COVID-19 as evidenced by average intake of 50% Goal: Patient to meet estimated nutritional needs. Patient is progressing towards goal. We will continue current goal. Pt current nutrition is Vital AF 1.2 at 50 ml/hr. Nutrition recommendation: Goal rate at 60 ml/hr Last recorded weight is 77.4 kg, down from 81.8 kg on admit. Bowel Motility:+BM reported 1/3 Labs Reviewed: GFR 21, BUN 100, Cr 3.0,Glu 147,Hct 31.0,Hgb 10.3 Meds Noted:Bumex, Versed, Nimbex, Fentanyl, Reglan, Vit C, Ferrous Sulfate,Synthroid, Vit D, Mirapex,Lipitor, Lopressor. Skin: WNL Additional Notes: Patient remains on mechanical vent and tube feedings Vital AF 1.2 at 50 ml/hr, goal rate at 60 ml/hr-tolerating. Tube feedings at goal rate will provide 1584 kcals/99 gms protein/1071 ml water. Free water flush at 30 ml q 4 hours. Right small pneumothorax reported today. Nephrology following-possible dialysis. Will continue to monitor renal labs for possible tube feeding change. Agree with diet orders at this time. Monitor in ICU rounds, reassessing every Saturday and Saturday.
--- NOTE | 2021-04-18 15:26 | WPDINTPN ---
Progress Note: A&P Assessment and Plan (1) Acute respiratory failure with hypoxia: Code(s): J96.01 - Acute respiratory failure with hypoxia Status: Acute Assessment and Plan: Patient presented to the hospital on 03/26/2021 with complains of shortness of breath and was tested positive for COVID pneumonia. -patient failed BiPAP on 04/10 and was intubated on 04/10 -currently on low tidal volume strategy -peep of 12 and 55 % FiO2, will wean FiO2 to maintain O2 sats greater than 90% -will prone patient 16-18 hours daily -sedated with fentanyl, Versed infusion, will add Nimbex for vent synchrony -continue bronchodilators and Pulmicort -discussed with Nephrology, will hold diuresis today as creatinine and BUN significantly going up (2) Pneumonia due to COVID-19 virus: Code(s): U07.1 - COVID-19; J12.82 - Pneumonia due to coronavirus disease 2018 Status: Acute Assessment and Plan: COVID-19 pneumonia, patient has received 2 doses of mRNA vaccine -has completed a course of dexamethasone and remdesivir -patient received 12 days of baricitinib -inflammatory markers are trending down, LDH is normal -continue droplet, airborne, contact isolation/precautions -continue vitamin-C and vitamin-D (3) Leukocytosis: Code(s): D72.829 - Elevated white blood cell count, unspecified Status: Acute Assessment and Plan: WBC count is worsening, patient is afebrile -04/10/2021: Blood cultures are negative x2. -04/13/2021: Sputum cultures growing Citrobacter 04/13/2021: Urine cultures are pending -will discontinue vancomycin. 04/15/21 -continue Cefepime (initiated on 04/09/2021) for total of 10 days (4) Transaminitis: Code(s): R74.01 - Elevation of levels of liver transaminase levels Status: Acute Assessment and Plan: LFTs are back to normal (5) HTN (hypertension): Qualifiers: Hypertension type: essential hypertension Qualified Code(s): I10 - Essential (primary) hypertension Code(s): I10 - Essential (primary) hypertension Status: Chronic Assessment and Plan: History of essential hypertension, currently on positive pressure ventilation and sedation medications -hydralazine p.r.n. has been ordered (6) DVT prophylaxis: Code(s): Z29.9 - Encounter for prophylactic measures, unspecified Status: Acute Assessment and Plan: DVT prophylaxis: Lovenox (7) Dietary counseling and surveillance: Code(s): Z71.3 - Dietary counseling and surveillance Status: Acute Assessment and Plan: Stress ulcer prophylaxis: Protonix Patient is tolerating tube feeds better, -continue Reglan and MiraLax -04/15/2021: Obstructive series no evidence of ileus, obstruction or free air. -04/16/2021: Patient did respond to Dulcolax suppository, positive bowel movement (8) AMINTA (acute kidney injury): Onset Date: ~04/25/19 Code(s): N17.9 - Acute kidney failure, unspecified Status: Resolved Assessment and Plan: Acute kidney injury could be related to hypoxia, COVID-19, volume overload -renal ultrasound did not show any hydronephrosis -CK levels are normal, -creatinine is trending up, he might peak his creatinine at some point - good urine output in response to albumin Bumex per Nephrology. Discussed with Nephrology, recommended holding the Bumex and the albumin for today as his BUN and creatinine trending up -continue to monitor urine output, renal function and electrolytes Additional Plan 04/18/2021: Discussed with Mary, patient's spouse and updated with patient's condition and plan of care. She is aware that the patient's oxygen requirements and ventilator support has increased. I also discussed with her regarding possibility of dialysis if his kidney function does not improve. 04/18/2021: Also discussed with patient's daughter Orquidea who is a physician, updated with the patient's friend dilatory status and respiratory status,
[2021-04-18 17:23] LABS: Glucose Point of Care 148 mg/dl (65-105)
[2021-04-18] MEDS: ENOXAPARIN 40 MG/0.4 ML SYRINGE SUB-Q (17:32)
[2021-04-18 23:48] LABS: Glucose Point of Care 151 mg/dl (65-105)
[2021-04-19] VITALS (50 sets, daily range): BP systolic 117–160; BP diastolic 57–81; PULSE 80–102; RESP 30; TEMP 35.4–36.7; O2SAT 88–95
[2021-04-19] MEDS: FENTANYL 2,500MCG/NS250ML(*CRX 2,500 MCG/250 ML BAG 20 MCG IV CONT (00:49)
[2021-04-19] MEDS: CISATRACURIUM BESYLATE 200 MG in DEXTROSE 5% 80 ML 13.53 ML IV CONT (00:50)
[2021-04-19] MEDS: IPRATROPIUM BR 0.02% INH SOLN 0.5 MG/2.5 ML VIAL INHALATION ×4 (02:13→19:46)
[2021-04-19] MEDS: ALBUTEROL SULFATE NEB 2.5 MG/0.5 ML INH 5 MG INHALATION ×4 (02:13→19:46)
[2021-04-19] MEDS: METOPROLOL TARTRATE INJ 5 MG/5 ML VIAL IV PUSH ×4 (05:00→23:27)
[2021-04-19] MEDS: METOCLOPRAMIDE HCL INJ 10 MG/2 ML VIAL IV PUSH ×4 (05:01→23:26)
[2021-04-19] MEDS: LEVOTHYROXINE SODIUM 25 MCG TABLET PO (05:01)
[2021-04-19] MEDS: CENTRAL LINE FLUSH 10 ML IV PUSH ×3 (05:01→20:40)
[2021-04-19] MEDS: LEVOTHYROXINE SODIUM 112 MCG TABLET PO (05:01)
[2021-04-19 05:15] LABS: Hematocrit 30.7 % (42.0-52.0); Hemoglobin 10.1 g/dL (14.0-18.0); Mean Corpuscular HGB Conc 32.9 g/dl (32-36); Mean Corpuscular Hemoglobin 31.1 pg (26-34); Mean Corpuscular Volume 94.5 fl (80-100); Platelet Count Result 104 k/mm3 (150-375); Red Blood Count 3.25 M/mm3 (4.6-6.20); White Blood Count 10.1 K/mm3 (4.5-10.0)
[2021-04-19 05:31] LABS: Alanine Aminotransferase 124 U/L (4-50); Albumin Level 3.5 g/dL (3.5-5.1); Alkaline Phosphatase 717 U/L (38-126); Anion Gap 12 mmol/L (8-16); Aspartate Amino Transferase 67 U/L (17-59); Bilirubin,Total 1.4 mg/dL (0.2-1.3); Calcium 9.2 mg/dL (8.4-10.2); Carbon Dioxide 29 mmol/L (22-30); Chloride 96 mmol/L (98-107); Estimated CRCL calculation 16 ml/min; Estimated Glomerular Filt Rate 15; Glucose 130 mg/dL (65-110); Magnesium 2.4 mg/dL (1.6-2.3); Phosphorus 4.9 mg/dL (2.5-4.5); Sodium 137 mmol/L (137-145)
[2021-04-19 05:34] LABS: Blood Urea Nitrogen 122 mg/dL (9-20)
[2021-04-19 06:33] LABS: Alveolar/Arterial O2 Gradient 314.7 mmHg; Base Excess ABG -0.7 mEq/l (+/-2.0); Fractional Inspired Oxygen 65 %; HCO3 ABG 27.2 mEq/l (22.0-26.0); Methemoglobin ABG 0.2 %THb (0-1.5); Oxygen Content ABG 14.7 %vol (16.0-22.0); Oxygen Saturation ABG 94.1 % (95.0-100.0); Oxyhemoglobin 95.1 % THb (90.0-100.0); PO2 ABG 81.5 mmHg (80.0-100.0); PO2 FiO2 Ratio Arterial Blood 1.25 %; Reduced Hemoglobin 4.7 %THb (0-5.0); Total Hemoglobin 10.9 g/dL (12.0-18.0)
--- NOTE | 2021-04-19 08:29 | PM.IMPN ---
Progress Note: A&P Assessment and Plan (1) Acute respiratory failure with hypoxia: Code(s): J96.01 - Acute respiratory failure with hypoxia Status: Acute Assessment and Plan: Patient presented to the hospital on 03/26/2021 with complains of shortness of breath and was tested positive for COVID pneumonia. -patient failed BiPAP on 04/10 and was intubated on 04/10 -currently on low tidal volume strategy -peep of 12 and65 % FiO2, will wean FiO2 to maintain O2 sats greater than 90% -will prone patient 16-18 hours daily -sedated with fentanyl, Versed infusion, continue Nimbex for vent synchrony -continue bronchodilators and Pulmicort -discussed with Nephrology, continue to hold diuresis as BUN and creatinine for a trending up (2) Pneumonia due to COVID-19 virus: Code(s): U07.1 - COVID-19; J12.82 - Pneumonia due to coronavirus disease 2019 Status: Acute Assessment and Plan: COVID-19 pneumonia, patient has received 2 doses of mRNA vaccine -has completed a course of dexamethasone and remdesivir -patient received 12 days of baricitinib -inflammatory markers are trending down, LDH is normal -continue droplet, airborne, contact isolation/precautions -continue vitamin-C and vitamin-D (3) Leukocytosis: Code(s): D72.829 - Elevated white blood cell count, unspecified Status: Acute Assessment and Plan: WBC count is worsening, patient is afebrile -04/10/2021: Blood cultures are negative x2. -04/13/2021: Sputum cultures growing Citrobacter 04/13/2021: Urine cultures negative -will discontinue vancomycin. 04/15/21 -continue Cefepime (initiated on 04/09/2021) for total of 10 days (4) HTN (hypertension): Qualifiers: Hypertension type: essential hypertension Qualified Code(s): I10 - Essential (primary) hypertension Code(s): I10 - Essential (primary) hypertension Status: Chronic Assessment and Plan: History of essential hypertension, currently on positive pressure ventilation and sedation medications -hydralazine p.r.n. has been ordered (5) DVT prophylaxis: Code(s): Z29.9 - Encounter for prophylactic measures, unspecified Status: Acute Assessment and Plan: DVT prophylaxis: Lovenox (6) Dietary counseling and surveillance: Code(s): Z71.3 - Dietary counseling and surveillance Status: Acute Assessment and Plan: Stress ulcer prophylaxis: Protonix Patient is tolerating tube feeds better, last bowel movement on 04/17/2021 -continue Reglan and MiraLax -04/15/2021: Obstructive series no evidence of ileus, obstruction or free air. -04/16/2021: Patient did respond to Dulcolax suppository, positive bowel movement (7) AMINTA (acute kidney injury): Onset Date: ~04/25/19 Code(s): N17.9 - Acute kidney failure, unspecified Status: Resolved Assessment and Plan: Acute kidney injury could be related to hypoxia, COVID-19, volume overload -renal ultrasound did not show any hydronephrosis -CK levels are normal, -creatinine is trending up, he might peak his creatinine at some point -patient was initially placed on albumin and Bumex to which she responded well but his creatinine and BUN continue to trend up. Discussed with Nephrology, have been holding diuretics since 04/18/2021. -patient may require dialysis, her discussed with the and daughter who is a physician. -continue to monitor urine output, renal function and electrolytes Additional Plan 04/18/2021: Discussed with Mary, patient's spouse and updated with patient's condition and plan of care. She is aware that the patient's oxygen requirements and ventilator support has increased. I also discussed with her regarding possibility of dialysis if his kidney function does not improve. 04/18/2021: Also discussed with patient's daughter Orquidea who is a physician, updated with the patient's friend dilatory status and respiratory status, kidney functions. I answered all qu
[2021-04-19] MEDS: MIDAZOLAM 100MG/NS 100ML(*CRX) 100 MG/100 ML BAG 10 MG IV CONT ×2 (09:06→18:58)
[2021-04-19] MEDS: CISATRACURIUM BESYLATE 200 MG in DEXTROSE 5% 80 ML 12.3 ML IV CONT ×2 (09:07→17:56)
[2021-04-19] MEDS: FERROUS SULFATE 324 MG TABLET PO (09:09)
[2021-04-19] MEDS: MINERAL OIL/WHITE PETROLATUM OINTMENT 1 APPLIC EACH EYE ×2 (09:09→20:40)
[2021-04-19] MEDS: CHOLECALCIFEROL 1,000 UNITS TABLET 2000 UNITS PO (09:09)
[2021-04-19] MEDS: PRAMIPEXOLE 0.125 MG TABLET 0.375 MG PO ×2 (09:09→17:58)
[2021-04-19] MEDS: ASCORBIC ACID 500 MG TABLET 1000 MG PO (09:09)
[2021-04-19] MEDS: PANTOPRAZOLE SODIUM IV 40 MG VIAL IV PUSH (09:09)
[2021-04-19] MEDS: ATORVASTATIN 20 MG TABLET BY MOUTH (09:09)
--- NOTE | 2021-04-19 12:08 | PCFNICU ---
ICU Rounding Note: Pt current nutrition is Vital AF 1.2 at 60 ml/hr over 22 hours. Nutrition recommendation:Nepro at 45 ml/hr over 22 hours. Last recorded weight is 77.1 kg-stable Bowel Motility:+BM reported 04/17 Labs Reviewed:PO4 4.9,BUN 122, GFR 15, Cr 4.10,Hct 30.7,Hgb 10.1 Meds Noted:Versed, Fentanyl, Nimbex, Reglan, Bumex, Lopressor, Atrovent, Ferrous Sulfate, Vit D, Vit C, Synthroid, Lipitor, Atrovent, Vancomycin. Skin: WNL Additional Notes: Patient remains on mechanical vent. Tube feeding formula change today to Nepro at 45 ml/hr-Renal labs elevated. Tube feeding of Nepro at 45 ml/hr will provide patient with 1782 kcals/80 gms protein/797 ml water. Free water flush 30 ml q 4 hours. Agree with diet orders. Following daily in ICU rounds and reassessing every Saturday and Saturday.
[2021-04-19 12:26] LABS: Glucose Point of Care 127 mg/dl (65-105)
--- NOTE | 2021-04-19 13:09 | P.PNINT_ITS ---
Progress Note: A&P Assessment and Plan (1) Acute respiratory failure with hypoxia: Code(s): J96.01 - Acute respiratory failure with hypoxia Status: Acute Assessment and Plan: Patient presented to the hospital on 03/26/2021 with complains of shortness of breath and was tested positive for COVID pneumonia. -patient failed BiPAP on 04/10 and was intubated on 04/10 -currently on low tidal volume strategy -peep of 12 and65 % FiO2, will wean FiO2 to maintain O2 sats greater than 90% -will prone patient 16-18 hours daily -sedated with fentanyl, Versed infusion, continue Nimbex for vent synchrony -continue bronchodilators and Pulmicort -discussed with Nephrology, continue to hold diuresis as BUN and creatinine for a trending up (2) Pneumonia due to COVID-19 virus: Code(s): U07.1 - COVID-19; J12.82 - Pneumonia due to coronavirus disease 2019 Status: Acute Assessment and Plan: COVID-19 pneumonia, patient has received 2 doses of mRNA vaccine -has completed a course of dexamethasone and remdesivir -patient received 12 days of baricitinib -inflammatory markers are trending down, LDH is normal -continue droplet, airborne, contact isolation/precautions -continue vitamin-C and vitamin-D (3) Leukocytosis: Code(s): D72.829 - Elevated white blood cell count, unspecified Status: Acute Assessment and Plan: WBC count is worsening, patient is afebrile -04/10/2021: Blood cultures are negative x2. -04/13/2021: Sputum cultures growing Citrobacter 04/13/2021: Urine cultures negative -will discontinue vancomycin. 04/15/21 -continue Cefepime (initiated on 04/09/2021) for total of 10 days (4) HTN (hypertension): Qualifiers: Hypertension type: essential hypertension Qualified Code(s): I10 - Essential (primary) hypertension Code(s): I10 - Essential (primary) hypertension Status: Chronic Assessment and Plan: History of essential hypertension, currently on positive pressure ventilation and sedation medications -hydralazine p.r.n. has been ordered (5) DVT prophylaxis: Code(s): Z29.9 - Encounter for prophylactic measures, unspecified Status: Acute Assessment and Plan: DVT prophylaxis: Lovenox (6) Dietary counseling and surveillance: Code(s): Z71.3 - Dietary counseling and surveillance Status: Acute Assessment and Plan: Stress ulcer prophylaxis: Protonix Patient is tolerating tube feeds better, last bowel movement on 04/17/2021 -continue Reglan and MiraLax -04/15/2021: Obstructive series no evidence of ileus, obstruction or free air. -04/16/2021: Patient did respond to Dulcolax suppository, positive bowel movement (7) AMINTA (acute kidney injury): Onset Date: ~04/25/19 Code(s): N17.9 - Acute kidney failure, unspecified Status: Resolved Assessment and Plan: Acute kidney injury could be related to hypoxia, COVID-19, volume overload -renal ultrasound did not show any hydronephrosis -CK levels are normal, -creatinine is trending up, he might peak his creatinine at some point -patient was initially placed on albumin and Bumex to which she responded well but his creatinine and BUN continue to trend up. Discussed with Nephrology, have been holding diuretics since 04/18/2021. -patient may require dialysis, her discussed with the and daughter who is a physician. -continue to monitor urine output, renal function and electrolytes Additional Plan 04/18/2021: Discussed with Mary, patient's spouse and updated with patient's condition and plan of care. She is aware that the patient's oxygen
[2021-04-19] MEDS: FENTANYL 2,500MCG/NS250ML(*CRX 2,500 MCG/250 ML BAG 17.5 MCG IV CONT (14:31)
--- NOTE | 2021-04-19 17:47 | PM.PNNEP ---
Progress Note: A&P Assessment and Plan (1) AMINTA (acute kidney injury): Onset Date: ~04/25/19 Code(s): N17.9 - Acute kidney failure, unspecified Status: Resolved Assessment and Plan: Wilfrido has acute kidney injury. Renal ultrasound does not show obstruction. CPK is normal. There is no peripheral eosinophilia. He is not on any nephrotoxic medications. His blood pressure is doing well. He does not seem dehydrated. His intake/output is very positive. Urine electrolytes are prerenal. I/Os have been positive. he does not have cardiomegaly. albumin is low. perhaps third spacing. he is getting diuretics to help preserve oxygenation. His creatinine continues to rise slowly. Most likely his renal failure is due to progressive COVID 19. His total admission intake/output is very high. He has no swelling but he does have pulmonary infiltrates. FiO2 is 65% Creatinine is a higher again today. Discussed with Dr. Lemon. will hold diuretics. (2) Pneumonia due to COVID-19 virus: Code(s): U07.1 - COVID-19; J12.82 - Pneumonia due to coronavirus disease 2018 Status: Acute Assessment and Plan: the patient has progressive COVID-19 pneumonia. The patient has received Dexamethasone and remdesivir as well as baricitinib he is on isolation. He is getting pulmonary toilet, bronchodilators, and supportive care. Oxygenation is marginally better today. (3) Transaminitis: Code(s): R74.01 - Elevation of levels of liver transaminase levels Status: Acute Assessment and Plan: Liver enzymes seem to be smoldering (4) HTN (hypertension): Qualifiers: Hypertension type: essential hypertension Qualified Code(s): I10 - Essential (primary) hypertension Code(s): I10 - Essential (primary) hypertension Status: Chronic Assessment and Plan: Blood pressure is under pretty good control. Will leave the systolic a bit generous because of the acute kidney injury (5) BPH with obstruction/lower urinary tract symptoms: Code(s): N40.1 - Benign prostatic hyperplasia with lower urinary tract symptoms; N13.8 - Other obstructive and reflux uropathy Status: Chronic Assessment and Plan: he has a Guido cath (6) GERD (gastroesophageal reflux disease): Qualifiers: Esophagitis presence: esophagitis presence not specified Qualified Code(s): K21.9 - Gastro-esophageal reflux disease without esophagitis Code(s): K21.9 - Gastro-esophageal reflux disease without esophagitis Status: Chronic Assessment and Plan: he is on pantoprazole (7) Hypothyroidism: Code(s): E03.9 - Hypothyroidism, unspecified Status: Acute Assessment and Plan: he is on supplement (8) Mixed hyperlipidemia: Code(s): E78.2 - Mixed hyperlipidemia Status: Acute Assessment and Plan: he is on atorvastatin Subjective Date/time seen: 04/19/21 17:47 Interval history: pt is sedated and on the ventilator. on paralytics. Blood pressure is still running with a systolic of 140-160 Exam Narrative: WDWN ill looking male in NAD. He is in the prone position this morning. skin no rash or subQ nodules head ncat lungs coarse bilaterally cor reg no rub or gallop abd BS+ nontender and soft ext no edema or cyanosis. Objective Data Vital Signs Vital Signs: Vital Signs - 24 hr 04/18/21 18:00 04/18/21 19:55 04/18/21 20:00 Temperature 36.8 C Pulse Rate 106 H 111 H 112 H Respiratory Rate 30 H 30 H 30 H Blood Pressure 142/72 H 140/70 Pulse Oximetry 94 93 04/18/21 20:02 04/18/21 20:05 04/18/21 20:36 Temperature Pulse Rate 112 H 112 H 110 H Respiratory Rate 30 H 30 H Blood Pressure 127/66 Pulse Oximetry 93 04/18/21 20:37 04/18/21 21:56 04/18/21 22:00 Temperature 36.7 C Pulse Rate 110 H 109 H 108 H Respiratory Rate 30 H 30 H 30 H Blood Pressure
[2021-04-19] MEDS: ENOXAPARIN 40 MG/0.4 ML SYRINGE SUB-Q (17:58)
[2021-04-19 18:00] LABS: Glucose Point of Care 144 mg/dl (65-105)
[2021-04-19] MEDS: CISATRACURIUM BESYLATE 200 MG in DEXTROSE 5% 80 ML 14.76 ML IV CONT (23:30)
[2021-04-20] VITALS (41 sets, daily range): BP systolic 129–167; BP diastolic 60–81; PULSE 82–97; RESP 30; TEMP 36–36.4; O2SAT 93–97
[2021-04-20 00:07] LABS: Glucose Point of Care 108 mg/dl (65-105)
[2021-04-20] MEDS: FENTANYL 2,500MCG/NS250ML(*CRX 2,500 MCG/250 ML BAG 20 MCG IV CONT (02:31)
[2021-04-20] MEDS: ALBUTEROL SULFATE NEB 2.5 MG/0.5 ML INH 5 MG INHALATION ×4 (03:23→20:15)
[2021-04-20] MEDS: IPRATROPIUM BR 0.02% INH SOLN 0.5 MG/2.5 ML VIAL INHALATION ×4 (03:24→20:15)
[2021-04-20] MEDS: MIDAZOLAM 100MG/NS 100ML(*CRX) 100 MG/100 ML BAG 10 MG IV CONT ×2 (04:30→14:44)
[2021-04-20] MEDS: CISATRACURIUM BESYLATE 200 MG in DEXTROSE 5% 80 ML 14.76 ML IV CONT (04:54)
[2021-04-20] MEDS: METOCLOPRAMIDE HCL INJ 10 MG/2 ML VIAL IV PUSH ×3 (04:54→18:14)
[2021-04-20] MEDS: METOPROLOL TARTRATE INJ 5 MG/5 ML VIAL IV PUSH ×3 (04:56→18:14)
[2021-04-20] MEDS: CENTRAL LINE FLUSH 10 ML IV PUSH ×3 (04:57→21:01)
[2021-04-20] MEDS: LEVOTHYROXINE SODIUM 112 MCG TABLET PO (04:57)
[2021-04-20] MEDS: LEVOTHYROXINE SODIUM 25 MCG TABLET PO (04:58)
[2021-04-20 05:36] LABS: Hematocrit 28.9 % (42.0-52.0); Hemoglobin 9.5 g/dL (14.0-18.0); Mean Corpuscular HGB Conc 32.9 g/dl (32-36); Mean Corpuscular Hemoglobin 31.6 pg (26-34); Mean Platelet Volume 11.2 fl (7.4-10.4); Platelet Count Result 97 k/mm3 (150-375); Red Blood Count 3.01 M/mm3 (4.6-6.20); Red Cell Distribution Width 16.3 % (11.5-14.5); White Blood Count 8.7 K/mm3 (4.5-10.0)
[2021-04-20 06:21] LABS: Alanine Aminotransferase 119 U/L (4-50); Albumin Level 3.2 g/dL (3.5-5.1); Alkaline Phosphatase 648 U/L (38-126); Anion Gap 13 mmol/L (8-16); Aspartate Amino Transferase 61 U/L (17-59); Calcium 9.2 mg/dL (8.4-10.2); Carbon Dioxide 25 mmol/L (22-30); Chloride 96 mmol/L (98-107); Estimated CRCL calculation 12 ml/min; Estimated Glomerular Filt Rate 11; Glucose 147 mg/dL (65-110); Magnesium 2.3 mg/dL (1.6-2.3); Phosphorus 5.1 mg/dL (2.5-4.5); Potassium 4.5 mmol/L (3.4-5.0); Sodium 134 mmol/L (137-145)
[2021-04-20 06:29] LABS: Base Excess ABG -3.4 mEq/l (+/-2.0); Carboxyhemoglobin 0.5 % THb (0-2.0); Fractional Inspired Oxygen 70 %; Methemoglobin ABG 0.1 %THb (0-1.5); Oxygen Content ABG 16.2 %vol (16.0-22.0); Oxygen Saturation ABG 95.4 % (95.0-100.0); Oxyhemoglobin 95.3 % THb (90.0-100.0); PO2 FiO2 Ratio Arterial Blood 1.31 %; Reduced Hemoglobin 4.1 %THb (0-5.0)
[2021-04-20 06:31] LABS: PCO2 ABG 61.5 mmHg (35.0-45.0); pH ABG 7.227 (7.350-7.450)
[2021-04-20 06:32] LABS: Device VENTILATOR; Modified Allen's Test Pass; Site Drawn LEFT RADIAL
[2021-04-20 06:33] LABS: Arterial Blood Gas PEEP 12 cmH2O; Arterial Blood Gas Tidal Volume 470 ml; Arterial Blood Gas Vent Mode CMV; Arterial Blood Gas Ventilator rate 30 /MIN
[2021-04-20] MEDS: ATORVASTATIN 20 MG TABLET BY MOUTH (08:59)
[2021-04-20] MEDS: MINERAL OIL/WHITE PETROLATUM OINTMENT 1 APPLIC EACH EYE ×2 (08:59→21:00)
[2021-04-20] MEDS: CHOLECALCIFEROL 1,000 UNITS TABLET 2000 UNITS PO (08:59)
[2021-04-20] MEDS: ASCORBIC ACID 500 MG TABLET 1000 MG PO (08:59)
[2021-04-20] MEDS: FERROUS SULFATE 324 MG TABLET PO (08:59)
[2021-04-20] MEDS: PRAMIPEXOLE 0.125 MG TABLET 0.375 MG PO ×2 (09:00→18:13)
[2021-04-20] MEDS: PANTOPRAZOLE SODIUM IV 40 MG VIAL IV PUSH (09:00)
[2021-04-20 10:27] LABS: PCO2 ABG 61.8 mmHg (35.0-45.0); pH ABG 7.261 (7.350-7.450)
[2021-04-20 10:28] LABS: Device VENTILATOR
[2021-04-20 10:29] LABS: Arterial Blood Gas PEEP 12 cmH2O; Arterial Blood Gas Tidal Volume 470 ml; Arterial Blood Gas Vent Mode CMV; Arterial Blood Gas Ventilator rate 30 /MIN
[2021-04-20 11:20] LABS: Blood Urea Nitrogen 151 mg/dL (9-20)
--- NOTE | 2021-04-20 11:43 | WPDINTPN ---
Progress Note: A&P Assessment and Plan (1) Acute respiratory failure with hypoxia: Code(s): J96.01 - Acute respiratory failure with hypoxia Status: Acute Assessment and Plan: Patient presented to the hospital on 03/26/2021 with complains of shortness of breath and was tested positive for COVID pneumonia. -patient failed BiPAP on 04/10 and was intubated on 04/10 -currently on low tidal volume strategy -patient desaturated and had increased oxygen requirement overnight and had to be placed in prone position again -peep of 12 and 70 % FiO2, will wean FiO2 to maintain O2 sats greater than 90% -will prone patient 16-18 hours daily -sedated with fentanyl, Versed infusion, continue Nimbex for vent synchrony -continue bronchodilators and Pulmicort (2) Pneumonia due to COVID-19 virus: Code(s): U07.1 - COVID-19; J12.82 - Pneumonia due to coronavirus disease 2019 Status: Acute Assessment and Plan: COVID-19 pneumonia, patient has received 2 doses of mRNA vaccine -has completed a course of dexamethasone and remdesivir -patient received 12 days of baricitinib -inflammatory markers are trending down, LDH is normal -continue droplet, airborne, contact isolation/precautions -continue vitamin-C and vitamin-D (3) Leukocytosis: Code(s): D72.829 - Elevated white blood cell count, unspecified Status: Acute Assessment and Plan: WBC count is normal, patient is afebrile -04/10/2021: Blood cultures are negative x2. -04/13/2021: Sputum cultures growing Citrobacter 04/13/2021: Urine cultures negative -will discontinue vancomycin. 04/15/21 -completed a 10 day course of Cefepime (initiated on 04/09/2021) (4) HTN (hypertension): Qualifiers: Hypertension type: essential hypertension Qualified Code(s): I10 - Essential (primary) hypertension Code(s): I10 - Essential (primary) hypertension Status: Chronic Assessment and Plan: History of essential hypertension, currently on positive pressure ventilation and sedation medications -hydralazine p.r.n. has been ordered (5) DVT prophylaxis: Code(s): Z29.9 - Encounter for prophylactic measures, unspecified Status: Acute Assessment and Plan: DVT prophylaxis: Lovenox (6) Dietary counseling and surveillance: Code(s): Z71.3 - Dietary counseling and surveillance Status: Acute Assessment and Plan: Stress ulcer prophylaxis: Protonix Patient is tolerating tube feeds better, last bowel movement on 04/17/2021 -continue Reglan and MiraLax -04/15/2021: Obstructive series no evidence of ileus, obstruction or free air. -04/16/2021: Patient did respond to Dulcolax suppository, positive bowel movement (7) AMINTA (acute kidney injury): Onset Date: ~04/25/19 Code(s): N17.9 - Acute kidney failure, unspecified Status: Resolved Assessment and Plan: Acute kidney injury could be related to hypoxia, COVID-19, volume overload -renal ultrasound did not show any hydronephrosis -CK levels are normal, -patient was initially placed on albumin and Bumex to which she responded well but his creatinine and BUN continue to trend up. Discussed with Nephrology, have been holding diuretics since 04/18/2021. -his creatinine, BUN and urine output has continued to worsen -I have spoken to patient's and daughter by phone today and discussed option of starting hemodialysis. They at this time are inclined towards transitioning to palliative care considering poor prognosis. They told me that they do not want dialysis as they do not feel that it will change his outcome Additional Plan 04/20 I spoke to patient's daughter Orquidea and by phone. I updated them with patient's current status including COVID-19 pneumonia, respiratory failure and acute kidney injury, current treatment plan and answered all their questions. I discussed options of DNR, comfort care, visitor policy and dialysis with them. They are aware
--- NOTE | 2021-04-20 12:04 | PCFNICU ---
ICU Rounding Note: Pt current nutrition is Nepro at 45 ml/hr over 22 hours. Last recorded weight is 82 kg-stable Bowel Motility:Last BM reported 1/3 Labs Reviewed:PO4 5.1,GFR 11, Na 134, Hct 28.9,Hgb 9.5, Na 134, Cr 5.4,Glu 147, BUN 151. Meds Noted:Vit C, Ferrous Sulfate, Reglan, Nimbex, Versed, Atrovent, Bumex, Fentanyl, Lopressor, Synthroid,Lipitor, Vit D Skin:WNL Additional Notes: Patient remains on mechanical vent. Tube feeding formula changed yesterday to Nepro at 45 ml/hr and tolerating due to elevated renal labs. Agree with diet orders. Following daily in ICU rounds and reassessing every Saturday and Saturday.
[2021-04-20 12:24] LABS: Glucose Point of Care 113 mg/dl (65-105)
[2021-04-20] MEDS: CISATRACURIUM BESYLATE 200 MG in DEXTROSE 5% 80 ML 12.3 ML IV CONT (12:25)
--- NOTE | 2021-04-20 14:30 | PM.PNNEP ---
Progress Note: A&P Assessment and Plan (1) AMINTA (acute kidney injury): Onset Date: ~04/25/19 Code(s): N17.9 - Acute kidney failure, unspecified Status: Resolved Assessment and Plan: Wilfrido has acute kidney injury. Renal ultrasound does not show obstruction. CPK is normal. There is no peripheral eosinophilia. He is not on any nephrotoxic medications. His blood pressure is doing well. He does not seem dehydrated. His intake/output is very positive. Urine electrolytes are prerenal. I/Os have been positive. he does not have cardiomegaly. albumin is low. perhaps third spacing. Most likely his renal failure is due to progressive COVID 19. FiO2 is 70% diuretics are on hold. Creatinine zahra anyway I note the discussion by Dr. Rosas with the family. (2) Pneumonia due to COVID-19 virus: Code(s): U07.1 - COVID-19; J12.82 - Pneumonia due to coronavirus disease 2019 Status: Acute Assessment and Plan: the patient has progressive COVID-19 pneumonia. The patient has received Dexamethasone and remdesivir as well as baricitinib he is on isolation. He is getting pulmonary toilet, bronchodilators, and supportive care. FiO2 requirement has risen. (3) Transaminitis: Code(s): R74.01 - Elevation of levels of liver transaminase levels Status: Acute Assessment and Plan: Liver enzymes seem to be smoldering (4) HTN (hypertension): Qualifiers: Hypertension type: essential hypertension Qualified Code(s): I10 - Essential (primary) hypertension Code(s): I10 - Essential (primary) hypertension Status: Chronic Assessment and Plan: Blood pressure is under pretty good control. Will leave the systolic a bit generous because of the acute kidney injury (5) BPH with obstruction/lower urinary tract symptoms: Code(s): N40.1 - Benign prostatic hyperplasia with lower urinary tract symptoms; N13.8 - Other obstructive and reflux uropathy Status: Chronic Assessment and Plan: he has a Guido cath (6) GERD (gastroesophageal reflux disease): Qualifiers: Esophagitis presence: esophagitis presence not specified Qualified Code(s): K21.9 - Gastro-esophageal reflux disease without esophagitis Code(s): K21.9 - Gastro-esophageal reflux disease without esophagitis Status: Chronic Assessment and Plan: he is on pantoprazole (7) Hypothyroidism: Code(s): E03.9 - Hypothyroidism, unspecified Status: Acute Assessment and Plan: he is on supplement (8) Mixed hyperlipidemia: Code(s): E78.2 - Mixed hyperlipidemia Status: Acute Assessment and Plan: he is on atorvastatin Subjective Date/time seen: 04/20/21 14:30 Interval history: pt is sedated and on the ventilator. on paralytics. he is in the prone position Blood pressure is still running with a generous systolic of 140-160 Exam Narrative: WDWN ill looking male in NAD. He is in the prone position this morning. skin no rash head ncat lungs coarse bilaterally cor reg no rub or gallop abd BS+ nontender and soft ext no edema Objective Data Vital Signs Vital Signs: Vital Signs - 24 hr 04/19/21 14:31 04/19/21 16:00 04/19/21 17:01 Temperature 35.5 C L 35.5 C L Pulse Rate 80 84 84 Respiratory Rate 30 H 30 H 30 H Blood Pressure 141/73 H 141/73 H Pulse Oximetry 94 94 04/19/21 17:15 04/19/21 17:30 04/19/21 17:50 Temperature 35.4 C L Pulse Rate 87 82 Respiratory Rate 30 H Blood Pressure 141/80 H Pulse Oximetry 93 04/19/21 17:56 04/19/21 18:00 04/19/21 18:57 Temperature 35.5 C L Pulse Rate 87 93 95 Respiratory Rate 30 H 30 H Blood Pressure 141/80 H 160/81 H Pulse Oximetry 94 04/19/21 18:58 04/19/21 19:47 04/19/21 19:58 Temperature Pulse Rate 95 87 88 Respiratory Rate 30 H 30 H 30 H Blood Pressure Pulse Oximetry 91
[2021-04-20 15:58] LABS: Chloride Rand Ur <20 mmol/L (32-290); Creatinine Random Urine 76 mg/dL (20-320)
[2021-04-20 17:49] LABS: Vancomycin Trough 24.4 ug/mL (10.0-20.0)
[2021-04-20] MEDS: ENOXAPARIN 30 MG/0.3 ML SYRINGE SUB-Q (18:14)
[2021-04-20 18:15] LABS: Glucose Point of Care 131 mg/dl (65-105)
[2021-04-20] MEDS: CISATRACURIUM BESYLATE 200 MG in DEXTROSE 5% 80 ML 13.53 ML IV CONT (19:45)
[2021-04-20 23:16] LABS: Glucose Point of Care 159 mg/dl (65-105)
[2021-04-21] VITALS (23 sets, daily range): BP systolic 126–150; BP diastolic 60–79; PULSE 82–105; RESP 30; TEMP 35.9–36.3; O2SAT 85–97
[2021-04-21] MEDS: METOPROLOL TARTRATE INJ 5 MG/5 ML VIAL IV PUSH ×2 (00:04→06:00)
[2021-04-21] MEDS: METOCLOPRAMIDE HCL INJ 10 MG/2 ML VIAL IV PUSH ×2 (00:04→06:00)
[2021-04-21] MEDS: MIDAZOLAM 100MG/NS 100ML(*CRX) 100 MG/100 ML BAG 10 MG IV CONT ×2 (00:11→09:40)
[2021-04-21] MEDS: CISATRACURIUM BESYLATE 200 MG in DEXTROSE 5% 80 ML 15.99 ML IV CONT (02:38)
[2021-04-21 04:20] LABS: Alveolar/Arterial O2 Gradient 448.2 mmHg; Base Excess ABG -6.2 mEq/l (+/-2.0); Carboxyhemoglobin 0.8 % THb (0-2.0); Fractional Inspired Oxygen 100 %; HCO3 ABG 24.9 mEq/l (22.0-26.0); Methemoglobin ABG 0.4 %THb (0-1.5); Oxygen Content ABG 22.5 %vol (16.0-22.0); Oxygen Saturation ABG 98.8 % (95.0-100.0); Oxyhemoglobin 97.5 % THb (90.0-100.0); PO2 ABG 189.1 mmHg (80.0-100.0); PO2 FiO2 Ratio Arterial Blood 1.89 %; Reduced Hemoglobin 1.3 %THb (0-5.0); Total Hemoglobin 16.2 g/dL (12.0-18.0)
[2021-04-21 04:21] LABS: pH ABG 7.135 (7.350-7.450)
[2021-04-21 04:22] LABS: Arterial Blood Gas PEEP 12 cmH2O; Arterial Blood Gas Vent Mode CMV; Arterial Blood Gas Ventilator rate 30 /MIN; Device VENTILATOR; Modified Allen's Test Pass; PCO2 ABG 75.7 mmHg (35.0-45.0); Site Drawn LEFT RADIAL
[2021-04-21 04:23] LABS: Arterial Blood Gas Tidal Volume 470 ml
[2021-04-21] MEDS: FENTANYL 2,500MCG/NS250ML(*CRX 2,500 MCG/250 ML BAG 20 MCG IV CONT (05:00)
[2021-04-21 05:14] LABS: Hemoglobin 9.7 g/dL (14.0-18.0); Mean Corpuscular HGB Conc 32.3 g/dl (32-36); Mean Corpuscular Hemoglobin 31.2 pg (26-34); Mean Corpuscular Volume 96.5 fl (80-100); Mean Platelet Volume 11.7 fl (7.4-10.4); Platelet Count Result 128 k/mm3 (150-375); Red Blood Count 3.11 M/mm3 (4.6-6.20); Red Cell Distribution Width 16.6 % (11.5-14.5); White Blood Count 10.4 K/mm3 (4.5-10.0)
[2021-04-21] MEDS: LEVOTHYROXINE SODIUM 112 MCG TABLET PO (06:00)
[2021-04-21] MEDS: LEVOTHYROXINE SODIUM 25 MCG TABLET PO (06:00)
[2021-04-21] MEDS: CENTRAL LINE FLUSH 10 ML IV PUSH (06:00)
[2021-04-21 06:11] LABS: Alanine Aminotransferase 95 U/L (4-50); Albumin Level 3.1 g/dL (3.5-5.1); Alkaline Phosphatase 670 U/L (38-126); Anion Gap 18 mmol/L (8-16); Aspartate Amino Transferase 47 U/L (17-59); Bilirubin,Total 0.9 mg/dL (0.2-1.3); Calcium 9.4 mg/dL (8.4-10.2); Carbon Dioxide 22 mmol/L (22-30); Chloride 94 mmol/L (98-107); Estimated CRCL calculation 10 ml/min; Estimated Glomerular Filt Rate 9; Glucose 129 mg/dL (65-110); Magnesium 2.6 mg/dL (1.6-2.3); Phosphorus 6.8 mg/dL (2.5-4.5); Potassium 5.3 mmol/L (3.4-5.0); Sodium 134 mmol/L (137-145)
[2021-04-21 06:38] LABS: Blood Urea Nitrogen 181 mg/dL (9-20)
[2021-04-21] MEDS: ALBUTEROL SULFATE NEB 2.5 MG/0.5 ML INH 5 MG INHALATION (08:12)
[2021-04-21] MEDS: IPRATROPIUM BR 0.02% INH SOLN 0.5 MG/2.5 ML VIAL INHALATION (08:12)
[2021-04-21] MEDS: CISATRACURIUM BESYLATE 200 MG in DEXTROSE 5% 80 ML 17.22 ML IV CONT (09:46)
[2021-04-21] MEDS: ATORVASTATIN 20 MG TABLET BY MOUTH (09:48)
[2021-04-21] MEDS: ASCORBIC ACID 500 MG TABLET 1000 MG PO (09:48)
[2021-04-21] MEDS: PANTOPRAZOLE SODIUM IV 40 MG VIAL IV PUSH (09:48)
[2021-04-21] MEDS: CHOLECALCIFEROL 1,000 UNITS TABLET 2000 UNITS PO (09:48)
[2021-04-21] MEDS: PRAMIPEXOLE 0.125 MG TABLET 0.375 MG PO (09:49)
[2021-04-21] MEDS: FERROUS SULFATE 324 MG TABLET PO (09:49)
[2021-04-21] MEDS: MINERAL OIL/WHITE PETROLATUM OINTMENT 1 APPLIC EACH EYE (09:49)
--- NOTE | 2021-04-21 10:12 | WPDINTPN ---
Progress Note: A&P Assessment and Plan (1) Acute respiratory failure with hypoxia: Code(s): J96.01 - Acute respiratory failure with hypoxia Status: Acute Assessment and Plan: Patient presented to the hospital on 03/26/2021 with complains of shortness of breath and was tested positive for COVID pneumonia. -patient failed BiPAP on 04/10 and was intubated on 04/10 -currently on low tidal volume strategy -currently in prone position -sedated with fentanyl, Versed infusion, continue Nimbex for vent synchrony (2) Pneumonia due to COVID-19 virus: Code(s): U07.1 - COVID-19; J12.82 - Pneumonia due to coronavirus disease 2019 Status: Acute Assessment and Plan: COVID-19 pneumonia, patient has received 2 doses of mRNA vaccine -has completed a course of dexamethasone and remdesivir -patient received 12 days of baricitinib -inflammatory markers are trending down, LDH is normal -continue droplet, airborne, contact isolation/precautions -continue vitamin-C and vitamin-D (3) Leukocytosis: Code(s): D72.829 - Elevated white blood cell count, unspecified Status: Acute Assessment and Plan: WBC count is normal, patient is afebrile -04/10/2021: Blood cultures are negative x2. -04/13/2021: Sputum cultures growing Citrobacter 04/13/2021: Urine cultures negative -will discontinue vancomycin. 04/15/21 -completed a 10 day course of Cefepime (initiated on 04/09/2021) (4) HTN (hypertension): Qualifiers: Hypertension type: essential hypertension Qualified Code(s): I10 - Essential (primary) hypertension Code(s): I10 - Essential (primary) hypertension Status: Chronic Assessment and Plan: History of essential hypertension, currently on positive pressure ventilation and sedation medications -hydralazine p.r.n. has been ordered (5) DVT prophylaxis: Code(s): Z29.9 - Encounter for prophylactic measures, unspecified Status: Acute Assessment and Plan: DVT prophylaxis: Lovenox (6) Dietary counseling and surveillance: Code(s): Z71.3 - Dietary counseling and surveillance Status: Acute Assessment and Plan: Stress ulcer prophylaxis: Protonix Patient is tolerating tube feeds better, last bowel movement on 04/17/2021 -continue Reglan and MiraLax -04/15/2021: Obstructive series no evidence of ileus, obstruction or free air. -04/16/2021: Patient did respond to Dulcolax suppository, positive bowel movement (7) AMINTA (acute kidney injury): Onset Date: ~04/25/19 Code(s): N17.9 - Acute kidney failure, unspecified Status: Resolved Assessment and Plan: Acute kidney injury could be related to hypoxia, COVID-19, volume overload -renal ultrasound did not show any hydronephrosis -CK levels are normal, -patient was initially placed on albumin and Bumex to which she responded well but his creatinine and BUN continue to trend up. Discussed with Nephrology, have been holding diuretics since 04/18/2021. -his creatinine, BUN and urine output has continued to worsen -04/20 I have spoken to patient's and daughter by phone today and discussed option of starting hemodialysis. They at this time are inclined towards transitioning to palliative care considering poor prognosis. They told me that they do not want dialysis as they do not feel that it will change his outcome Additional Plan 04/20 I spoke to patient's daughter Orquidea and by phone. I updated them with patient's current status including COVID-19 pneumonia, respiratory failure and acute kidney injury, current treatment plan and answered all their questions. I discussed options of DNR, comfort care, visitor policy and dialysis with them. They are aware the patient has overall poor prognosis and do not want hemodialysis at this time. They requested the patient be made DNR and they would like to do a FaceTime called to see him before making further decisions. 04/21 patient's family di
--- NOTE | 2021-04-21 10:33 | PM.EVENT ---
Event Note Event Note Event Note: change in level of care noted. I will sign off. thank you
[2021-04-21 11:39] LABS: Glucose Point of Care 135 mg/dl (65-105)
--- NOTE | 2021-04-21 13:12 | PCNFU ---
Nutrition Follow-Up Complete: Inadequate oral intake related to COVID-19 as evidenced by average intake of 50% goal: Patient to meet estimated nutritional needs. Will continue current goal. Pt current nutrition is Nepro at 45 ml/hr over 22 hours. Last recorded weight is 84.1 kg-stable. Bowel Motility:+BM reported on 04/17 Labs Reviewed:Mg 2.6,Glu 129, GFR 9, Glu 129,Na 134, Ca 6.8, Alb 3.1 Meds Noted:Versed, Bumex, Reglan, Atrovent, Lopressor, Fentanyl, Ferrous Sulfate, Synthroid,Vit C, Vit D,Mirapex Skin: WNL Additional Notes: Patient remains on mechanical vent and tube feedings of Nepro at 45 ml/hr. Patient made a DNR today.Comfort measures. palliative extubation planned. Monitor daily in ICU rounds and reassessing every Saturday and Saturday.
--- NOTE | 2021-04-24 18:42 | P.DN_ITS ---
Discharge Summary Date and Time Date of : 04/21/21 Time of : 15:40 Provider Pronounced By: Lizeth Frias RN and Rupali Heller RN Probable Cause of Probable Cause of : Acute respiratory failure secondary to COVID pneumonia. Summary Hospital Course: Patient presented to the hospital on 03/26/2021 with complains of shortness of breath and was tested positive for COVID pneumonia. Patient failed BiPAP on 04/10 and was intubated on 04/10. Patient has completed a course of dexamethasone and remdesivir. -patient received 12 days of baricitinib. Despite aggressive care, the patient clinical status did not improve. On 04/21/2019 to, after discussion with his , the patient was made comfort measure only. We proceeded to palliative extubation and patient shortly thereafter. Additional Data Confirmation of as documented by pronouncing clinician: Pupillary Reflex, Palpable Pulses, Response to Stimuli, Heart Tones and Breath Sounds Family: at bedside Name of Provider Notified: Dr. Rosas Time Provider Notified: 15:40 Was code activated?: No Provider Requests Autopsy: No Family Requests Autopsy: No Receiving Associate Notified: Yes Date [facility] Notified of : 04/21/21 Time [facility] Notified of : 16:08 Advance directives: Yes Hospice patient?: Yes
== END 2021-04-21 15:40 | disposition expired | DRG 870 ==
LOC: ANHED 13:48 → ANH3MED 15:19 → ANH3MEDSUR 15:28 → ANHICU 04-24 17:18 → ANHIMU 04-24 17:18
PROVIDERS: Emergency Medicine; Internal Medicine; Internal Medicine Nephrology; Nurse Practitioner; Physician Assistant; Admitting Provider Family Medicine; Emergency Provider Emergency Medicine; PCP Family Medicine; Visit Provider Internal Medicine
DX: A41.89 Other specified sepsis (principal); U07.1 COVID-19; J12.82 Pneumonia due to coronavirus disease 2019; J96.01 Acute respiratory failure with hypoxia; G93.41 Metabolic encephalopathy; Z51.5 Encounter for palliative care; Z66 Do not resuscitate; J93.9 Pneumothorax, unspecified; N17.9 Acute kidney failure, unspecified; N13.8 Other obstructive and reflux uropathy; E87.2 Acidosis; N40.1 Benign prostatic hyperplasia with lower urinary tract symptoms; F43.10 Post-traumatic stress disorder, unspecified; K21.9 Gastro-esophageal reflux disease without esophagitis; E78.00 Pure hypercholesterolemia, unspecified; I10 Essential (primary) hypertension; E03.9 Hypothyroidism, unspecified; G25.81 Restless legs syndrome; F11.90 Opioid use, unspecified, uncomplicated; Z87.891 Personal history of nicotine dependence; G89.29 Other chronic pain; R00.0 Tachycardia, unspecified; F41.9 Anxiety disorder, unspecified; R74.01 Elevation of levels of liver transaminase levels; M54.9 Dorsalgia, unspecified; J98.2 Interstitial emphysema; R50.9 Fever, unspecified; E78.2 Mixed hyperlipidemia
CPT/HCPCS: 36415; 36569; 36600; 70450; 71045; 71275; 74019; 76775; 80048; 80053; 80069; 80074; 80076; 80202; 81001; 82375; 82436; 82550; 82565; 82570; 82728; 82805; 82948; 83036; 83050; 83605; 83615; 83735; 83880; 84100; 84133; 84300; 84443; 84450; 84460; 84484; 85025; 85027; 85380; 85610; 85999; 86140; 87040; 87070; 87077; 87086; 87186; 87205; 87804; 93005; 94002; 94003; 94640; 96365; 96366; 96372; 96375; 96376; 97161; 97165; 99285; A9270; C1751; C9113; C9803; G0378; J0456; J0692; J0696; J1100; J1650; J1940; J2060; J2250; J2270; J2765; J3010; J3370; J7040; J7050; P9047; Q9967; U0003; U0005